=== PATIENT | female | born 1945 | race Caucasian/White ===

== ENCOUNTER 2020-11-16 00:41 | Inpatient (IN) | payer MEDICARE, BC, SELFPAY ==
[2020-11-16] VITALS (18 sets, daily range): BP systolic 120–160; BP diastolic 43–116; PULSE 46–62; RESP 16–24; TEMP 36.4–36.8; O2SAT 91–100; BMI 35.7
--- NOTE | ~2020-11-16 | US_ITS ---
EXAMINATION: US paracentesis abd w/image DATE: 11/16/2020 14:50 INDICATION: Ascites. TECHNIQUE: The procedure and its risks, benefits, and alternatives were discussed with the patient. P otential risks discussed included bleeding and infection. The skin was prepped and draped in sterile fashion. 1% lidocaine was used for local anesthesia. Under ultrasound guidance, a 5 Fr catheter with trochar was advanced into the ascites in the left lower quadrant. Fluid was aspirated. The catheter w as removed, and a dressing was applied. There were no immediate complications. FINDINGS: Ultrasound images demonstrate ascites and the catheter within the fluid. IMPRESSION: 1. Successful ultrasound-guided paracentesis yielding 5000 mL of clear, yellow fluid. Reviewed, dictated and finalized at location A.
--- NOTE | ~2020-11-16 | XR_ITS ---
EXAMINATION: XR hip LT 2V w AP pelvis DATE: 11/16/2020 01:45 INDICATION: Left hip pain. Fall. TECHNIQUE: An anteroposterior view of the pelvis and 2 views of left hip were obtained. COMPARISON: None. FINDINGS: Bone alignment is normal. No fracture. There is severe lumbar spondylosis. There is severe right hip osteoarthritis and mild left hip osteoarthritis. IMPRESSION: 1. Severe right hip osteoarthritis and mild left hip osteoarthritis. Reviewed, dictated and finalized at location A.
--- NOTE | ~2020-11-16 | XR_ITS ---
EXAMINATION: XR chest 2V DATE: 11/16/2020 01:45 INDICATION: Fall. TECHNIQUE: Frontal and lateral views of the chest were obtained. COMPARISON: CT abdomen and pelvis 11/20/2016 FINDINGS: There is no pneumonia, pleural effusion, or pneumothorax. The heart size is normal. There a re multiple old healed right rib fractures. IMPRESSION: 1. No acute cardiopulmonary disease. Reviewed, dictated and finalized at location A.
--- NOTE | ~2020-11-16 | CT_ITS ---
EXAMINATION: CT brain wo con DATE: 11/16/2020 01:33 INDICATION: Head injury. TECHNIQUE: Computed tomography (CT) of the head was performed without intravenous contrast. The mA wa s adjusted according to patient size. Iterative reconstruction technique was employed. The dose-lengt h product was 605.33 mGy-cm. COMPARISON: None FINDINGS: There are scattered areas of low attenuation in the cerebral white matter, which is within normal limits for the patient's age. There is no intracranial hemorrhage, acute infarction, or abnorm al intracranial mass lesion. The ventricles are normal in size. There is mild mucosal thickening in t he paranasal sinuses. There are likely changes of ocular lens replacement surgeries. The mastoid air cells are normal. IMPRESSION: 1. Normal aging brain. Reviewed, dictated and finalized at location A. IMPRESSION: 1. Normal aging brain.
--- NOTE | ~2020-11-16 | CT_ITS ---
EXAMINATION: CT cervical spine wo con DATE: 11/16/2020 01:33 INDICATION: Neck injury. TECHNIQUE: Computed tomography (CT) of the cervical spine was performed without intravenous contrast. Automated exposure control and iterative reconstruction technique were employed. The dose-length pro duct was 433.91 mGy-cm. COMPARISON: None FINDINGS: There is a 1.9 cm nodule in right thyroid lobe. There is 7 degrees levocurvature of cervica l spine. Vertebral body heights are normal. There is moderately decreased disc height at C3-C4, mildl y decreased disc height at C4-C5, moderately decreased disc height at C5-C6, and severely decreased d isc height at C6-C7. The following disc levels are specifically discussed: C2-C3: There is no uncovertebral joint osteoarthritis. There is mild right and moderate left facet clif int osteoarthritis. There is no neural foraminal stenosis. There is no central canal stenosis. C3-C4: There is severe bilateral uncovertebral joint osteoarthritis. There is severe right and modera te left facet joint osteoarthritis. There is mild bilateral neural foraminal stenosis. There is mild central canal stenosis. C4-C5: There is mild bilateral uncovertebral joint osteoarthritis. There is mild right and severe lef t facet joint osteoarthritis. There is no neural foraminal stenosis. There is no central canal stenos is. C5-C6: There is severe bilateral uncovertebral joint osteoarthritis. There is mild bilateral facet clif int osteoarthritis. There is moderate right and mild left neural foraminal stenosis. There is mild ce ntral canal stenosis. C6-C7: There is severe bilateral uncovertebral joint osteoarthritis. There is moderate right and mild left facet joint osteoarthritis. There is mild bilateral neural foraminal stenosis. There is mild ce ntral canal stenosis. C7-T1: There is no uncovertebral joint osteoarthritis. There is severe bilateral facet joint osteoart hritis. There is mild left neural foraminal stenosis. There is no central canal stenosis. IMPRESSION: 1. No fracture. 2. Severe cervical spondylosis. 3. Thyroid nodule. Consider thyroid ultrasound for risk stratification. Reviewed, dictated and finalized at location A.
--- NOTE | ~2020-11-16 | CT_ITS ---
EXAMINATION: CT lumbar spine wo con DATE: 11/16/2020 01:33 INDICATION: Low back injury. TECHNIQUE: Computed tomography (CT) of the lumbar spine was performed without intravenous contrast. A utomated exposure control and iterative reconstruction technique were employed. The dose-length produ ct was 1332.44 mGy-cm. COMPARISON: CT abdomen and pelvis 11/20/2016 FINDINGS: The liver is small with surface nodularity, consistent with cirrhosis. Splenomegaly is note d, consistent with portal venous hypertension. There is a large volume of ascites. There are chronic bilateral L5 pars defects. There is 6 mm anterolisthesis of L5 on S1. There is 8 degrees levocurvatur e of lumbar spine. There is severely decreased disc height at L5-S1. The following disc levels are sp ecifically discussed: L1-L2: The disc does not extend beyond the endplate margin. There is moderate bilateral facet joint o steoarthritis. There is no neural foraminal stenosis. There is no central canal stenosis. L2-L3: The disc does not extend beyond the endplate margin. There is mild bilateral facet joint osteo arthritis. There is no neural foraminal stenosis. There is no central canal stenosis. L3-L4: The disc does not extend beyond the endplate margin. There is mild bilateral facet joint osteo arthritis. There is no neural foraminal stenosis. There is no central canal stenosis. L4-L5: The disc is bulging. There is severe bilateral facet joint osteoarthritis. There is mild bilat eral neural foraminal stenosis. There is mild central canal stenosis. L5-S1: The disc does not extend beyond the endplate margin. There is severe bilateral facet joint ost eoarthritis. There is moderate right and mild left neural foraminal stenosis. There is mild central c anal stenosis. IMPRESSION: 1. Severe lower lumbar spondylosis. 2. Chronic bilateral L5 pars defects with grade 1 anterolisthesis of L5 on S1. 3. Cirrhosis of the liver with portal venous hypertension. 4. Large volume of ascites. Reviewed, dictated and finalized at location A.
--- NOTE | 2020-11-16 01:15 | PC.NURSE ---
0110--Attempted to call [place] for health information on patient as none was sent with EMS, no answer -will try back
--- NOTE | 2020-11-16 01:24 | PC.NURSE ---
Patients son at bedside and is able to give some history- H Dennis ZHAO has also talked with him and patient
[2020-11-16 02:12] LABS: Basophils Absolute Auto 0.1 K/mm3 (0.0-0.1); Basophils Percent Auto 0.8 % (0.2-1.2); Eosinophils Absolute Auto 0.2 K/mm3 (0-0.3); Eosinophils Percent Auto 2.9 % (0-4.4); Hematocrit 28.9 % (37.0-47.0); Hemoglobin 9.6 g/dL (12.0-15.0); Immature Granulocyte Absolute 0.03 K/mm3 (0.00-0.031); Immature Granulocyte Percent A 0.4 % (0-0.5); Immature Platelet Fraction Pct 3.6 % (0.9-11.2); Lymphocytes Absolute Auto 0.56 K/mm3 (0.9-3.2); Lymphocytes Percent Auto 7.5 % (18.3-44.2); Mean Corpuscular HGB Conc 33.2 g/dl (32-36); Mean Corpuscular Hemoglobin 29.2 pg (26-34); Mean Corpuscular Volume 87.8 fl (80-100); Mean Platelet Volume 11.4 fl (7.4-10.4); Monocytes Absolute Auto 0.6 K/mm3 (0.1-0.6); Monocytes Percent Auto 8.5 % (2.6-8.5); Neutrophils Percent Auto 79.9 % (45.5-73.1); Platelet Count Result 72 k/mm3 (150-375); Red Blood Count 3.29 M/mm3 (4.2-5.4); Red Cell Distribution Width 14.4 % (11.5-14.5); White Blood Count 7.5 K/mm3 (4.5-10.0)
[2020-11-16 02:18] LABS: Ammonia < 9 umol/L (9-30)
[2020-11-16 02:19] LABS: Alanine Aminotransferase 19 U/L (4-35); Albumin Level 2.6 g/dL (3.5-5.1); Alkaline Phosphatase 295 U/L (38-126); Anion Gap 4 mmol/L (8-16); Aspartate Amino Transferase 49 U/L (14-36); Bilirubin,Total 1.3 mg/dL (0.2-1.3); Blood Urea Nitrogen 18 mg/dL (7-17); Calcium 8.5 mg/dL (8.4-10.2); Carbon Dioxide 22 mmol/L (22-30); Chloride 111 mmol/L (98-107); Estimated CRCL calculation 48 ml/min; Estimated Glomerular Filt Rate 54; Glucose 132 mg/dL (65-105); Potassium 4.2 mmol/L (3.4-5.0); Sodium 137 mmol/L (137-145)
[2020-11-16] MEDS: MORPHINE SULFATE (*CRX) 2 MG/ML INJ IV PUSH (02:20)
[2020-11-16] MEDS: ONDANSETRON INJ 4 MG/2 ML VIAL IV PUSH (02:20)
[2020-11-16 02:22] LABS: INR 1.3; Prothrombin Time 16.8 Seconds (11.1-14.7)
--- NOTE | 2020-11-16 02:23 | ED.FALL ---
HPI - Fall General Chief Complaint: Fall Stated Complaint: glf, lf eye & Both wrist pain Time Seen by Provider: 11/16/20 01:32 Source: patient Mode of arrival: EMS Limitations: no limitations History of Present Illness HPI Narrative: Patient is a 75-year-old female complaining of head, neck and low back pain after she rolled over and fell out of bed at the assisted living facility. Patient states her pain is a 6 out of 10, dull, aching. Patient denies any loss of consciousness. Patient currently is nonambulatory and getting physical therapy for it according to son due to generalized weakness after being hospitalized for a month in [place] secondary to her liver cirrhosis. Patient also complaining of increasing abdominal distention, supposed to have paracentesis done but since she was just placed at [facility] assisted living son is unable to get an appointment for it to be done. Patient denies any chest pain, shortness of breath, abdominal pain, nausea, vomiting, fever or chills. Related Data Allergies Allergy/AdvReac Type Severity Reaction Status Date / Time Penicillins Allergy Unknown Verified 11/16/20 01:24 PMFSH Comments Past medical history: Liver cirrhosis, ascites, hypertension Family history: Noncontributory Social history: Non-smoker no EtOH use Exam Const: General: cooperative, comfortable, no acute distress, well developed, alert and awake; No confusion Orientation/consciousness: oriented to person, oriented to place, oriented to time, patient oriented x3 and No confusion Limitations: no limitations Other: Frail HENMT: Head: normocephalic, atraumatic and contusion Ears: hearing grossly normal bilaterally, TM normal on the right and TM normal on the left General nose exam: Normal external nose present, Normal nares present, No nasal discharge present, no nasal discharge noted and no epistaxis Mouth: Yes Normal oral and palatal mucosa present, Yes lip normal, Yes tongue normal and Yes oropharynx normal Throat: posterior oropharynx normal, tonsils normal and uvula midline Other: Facial contusion Eyes: General: appearance normal, both eyes and all related structures Pupils: Equal, round and reactive pupils present EOM: EOMs intact bilaterally Neck: Neck: normal visual inspection, full ROM, no lymphadenopathy and no meningeal signs Chest: Chest palpation & inspection: normal inspection of the chest Resp: Effort & Inspection: normal respiratory effort, able to speak in complete sentences, no respiratory distress and not tachypneic Auscultation: clear to auscultation bilaterally, no crackles, no rales, no rhonchi and no wheezes Cardio: Rate: regular rate Rhythm: regular rhythm GI: Inspection: distended GI Palp: No abdominal tenderness, Yes Soft to palpation, No Tenderness to palpation present (GI), No Guarding due to palpation present (GI) and No Rebound tenderness present Auscultation: normal bowel sounds Other: Abdominal distention : General: Yes no CVA tenderness Back/Spine/Pelvis: Other: Pain on palpation bilateral lumbar paraspinal area Skin: General skin exam: normal color, no rashes or lesions noted, elasticity normal and turgor normal Neuro: General: oriented to person, oriented to place, oriented to time, patient oriented x3, tone normal, moves all extremities, Normal light touch and pain sensation, no meningeal signs, no focal motor deficits, CN's II-XI intact bilaterally and No confusion Cranial nerves: Yes Equal, round and reactive pupils present Speech: No Abnormal speech present Sensory Exam: No Sensory deficit (Neuro) Extrem: General: full ROM, capillary refill normal and no pedal edema Psych: Appearance: grossly normal and well kempt Mental Status: mental status grossly normal Speech and movement: Normal speech and movement present Affect: normal affect Attitude: cooperative Thought process: Normal thought process present Thought content: Yes Normal thought content present Insight: [place]
[2020-11-16 02:24] LABS: Partial Thromboplastin Time 33.2 SECONDS (22.3-36.8)
--- NOTE | 2020-11-16 05:45 | ADMGEN ---
This patient, Angeles Veras, was admitted to [facility] Surg Room 333-01. Patient/family oriented to hospital policies and general routines including ID bracelet, bed and alarms, visiting hours, pain management, procedures, bathroom and other care routines, personal items, smoking policy, room service/diet, and visiting hours. Information on how to activate the Rapid Response Team has been discussed. Patient/Family are encouraged to report perceived risks to care and to ask questions if they do not understand what they are told or what they should do.
[2020-11-16 09:14] LABS: Glucose Point of Care 97 (65-105)
--- NOTE | 2020-11-16 09:19 | PM.IMHP ---
H&P: HPI History of Present Illness Date/Time: 11/16/20 09:19 Chief Complaint: Fall Narrative: Date of admission: 11/16/20 Date of service: 11/16/20 Angeles Veras is a 75-year-old female with a history liver cirrhosis, chronic anemia, and insulin-dependent diabetes mellitus who presented to the emergency department on 11/16/2020 from her assisted living facility after a fall. She is a poor historian and is only accurately oriented to self. It is reported from alf staff that patient fell out of bed and hit her head. Unsure if loss of consciousness occurred. Unclear how long she was down for. ED documentation suggests that she was complaining of pain in her head, neck, and back, though she denies any complaints of pain to me at this time. She was recently hospitalized for 3 weeks in August-September, also for a fall. At that time she was diagnosed with liver cirrhosis and has plans for outpatient follow-up with coal mill operator at [facility]. She has undergone outpatient paracentesis x2 since that hospitalization. She denies complaints of abdominal bloating or pain to me, although her abdomen is significantly distended. Her son, Asif, arrived during my examination and he tells me that he feels she is more confused. He feels that this occurs when her ascites worsens. He also notes that she has been very weak and is nonambulatory since her extended hospitalization. He feels that she needs to be somewhere where she can get full-time care. Upon presentation to the emergency department, her BP was slightly elevated with additional vital signs stable, H&H slightly decreased, platelets low at 72, electrolytes are stable, albumin is low at 2.6, AST and ALP slightly elevated, ammonia is within normal limits, is negative for acute findings no evidence of fracture or acute injury on hip/pelvis x-ray, cervical spine CT, or lumbar CT note cirrhosis of the liver with portal venous hypertension and large volume of ascites. She is being admitted for observation to the hospitalist service. Supervising physician for this history and physical is Dr. Marcus Mathias. Review of Systems Review of Systems: Narrative: All systems reviewed with pertinent positives and negatives as per HPI. Additionally, patient states that her last bowel movement was yesterday. She denies diarrhea. She denies urinary symptoms. No flank pain or back pain. She denies confusion. No headaches. Denies dysphagia. No visual changes. No trouble with hearing. She denies shortness of breath or cough. She denies lower extremity edema. She denies chest pain. No palpitations. Denies dizziness or lightheadedness. She does feel very weak and fatigued. She complains of feeling extremely cold. She denies fever or chills. [facility] Past Medical History Medical History (Updated 11/16/20 @ 10:34 by Xin Will PA-C) Chronic anemia Cirrhosis of liver Hypothyroid Insulin dependent diabetes mellitus Surgical History Surgical History (Updated 11/16/20 @ 10:35 by Xin Will PA-C) No history of previous surgery Family History Family History (Updated 11/16/20 @ 10:35 by Xin Will PA-C) Father Lung cancer Heart disease Mother No problems noted. Social History Social History (Updated 11/16/20 @ 10:37 by Xin Will PA-C) Social History: Ms. Veras currently resides in [facility]. She has been there just a couple of days after her previous assisted living facility, [facility], closed. She has 2 adult sons and designates her son, Emanuel, as her surrogate decision maker. She would like to be a DNR. Her PCP is Dr. Dmitriy Jama. Smoking status: Never smoker Alcohol intake: never Substance use: never Living arrangements: assisted living Gender identity (if verbalized by the patient): Female Spiritual care concerns: No Meds Home Medications and Allergies Home Medications Medication Instructions Сергей
[2020-11-16] MEDS: FERROUS SULFATE 324 MG TABLET PO ×2 (09:47→18:10)
[2020-11-16] MEDS: FUROSEMIDE 20 MG TABLET PO (09:47)
--- NOTE | 2020-11-16 10:03 | PCOTNOTE ---
Attempted OT evaluation, per RN patient is more confused at this time and requested to hold for morning and attempt therapy at later time, will follow and attempt in the afternoon.
--- NOTE | 2020-11-16 10:06 | PCPTNOTE ---
Attempted PT evaluation, per RN patient is more confused at this time and requested to hold for morning and attempt therapy at later time, will follow and attempt in the afternoon. Carley Santana, KARYNT
[2020-11-16 11:04] LABS: Creatine Kinase 51 U/L (30-135)
[2020-11-16 11:07] LABS: Hemoglobin A1C 4.9 % (<5.7)
[2020-11-16 12:00] LABS: Thyroid Stimulating Hormone Reflex 0.129 uIU/mL (0.465-4.68)
[2020-11-16 12:11] LABS: Glucose Point of Care 85 (65-105)
--- NOTE | 2020-11-16 13:19 | PCOTNOTE ---
OT evaluation attempted, Patient out for procedure this afternoon. Will attempt OT evaluation at later time.
[2020-11-16] MEDS: LACTULOSE 20 GM/30 ML UDC PO ×2 (13:44→17:52)
--- NOTE | 2020-11-16 14:19 | PCPTNOTE ---
Attempted PT eval. Pt refused, states she's too tired after procedure to get up. Will try again tomorrow.
[2020-11-16 17:04] LABS: Glucose Point of Care 106 (65-105)
[2020-11-16 18:21] LABS: Add Urine Microscopic? YES; Appearance Urine Clear (Clear); Bacteria Urine 4+ /hpf; Bilirubin Urine Negative (Negative); Blood Urine Negative (Negative); Color Urine Yellow (Yellow); Glucose Urine UA Negative (Negative); Hyaline Casts Urine 20-29 /lpf; Ketones Urine Negative (Negative); Leukocyte Esterase Ur Negative LEU/UL (Negative); Mucus Urine Rare /lpf; Nitrate Urine Negative (Negative); Protein Urine Negative (Negative); RBC Urine 0-2 /hpf (0-2); Specific Grav Ur 1.015 (1.001-1.035); Squamous Epithelial Cell Urine Rare /hpf (Few); WBC Urine 0-3 /hpf
[2020-11-16] MEDS: PROPRANOLOL HCL 10 MG TABLET PO (20:44)
[2020-11-16] MEDS: MELATONIN 5 MG TABLET PO (20:47)
[2020-11-16] MEDS: TOLNAFTATE 1% POWDER 45 GM BTL 1 APPLIC TOPICAL (20:50)
[2020-11-16 22:38] LABS: Glucose Point of Care 135 (65-105)
[2020-11-17] MEDS: LORazepam (*CRX) 0.5 MG TABLET PO (02:04)
[2020-11-17 06:00] VITALS: BP 140/50; PULSE 60; RESP 18; TEMP 36.4; O2SAT 98
[2020-11-17] MEDS: LEVOTHYROXINE SODIUM 150 MCG TABLET PO (06:12)
[2020-11-17 06:17] LABS: Hematocrit 26.4 % (37.0-47.0); Hemoglobin 8.6 g/dL (12.0-15.0); Mean Corpuscular HGB Conc 32.6 g/dl (32-36); Mean Corpuscular Hemoglobin 28.6 pg (26-34); Mean Corpuscular Volume 87.7 fl (80-100); Mean Platelet Volume 12.4 fl (7.4-10.4); Platelet Count Result 56 k/mm3 (150-375); Red Blood Count 3.01 M/mm3 (4.2-5.4); Red Cell Distribution Width 14.4 % (11.5-14.5); White Blood Count 4.4 K/mm3 (4.5-10.0)
[2020-11-17 06:27] LABS: INR 1.4; Prothrombin Time 17.5 Seconds (11.1-14.7)
[2020-11-17 06:28] LABS: Alanine Aminotransferase 15 U/L (4-35); Albumin Level 2.2 g/dL (3.5-5.1); Alkaline Phosphatase 211 U/L (38-126); Anion Gap 1 mmol/L (8-16); Aspartate Amino Transferase 30 U/L (14-36); Blood Urea Nitrogen 15 mg/dL (7-17); Calcium 8.8 mg/dL (8.4-10.2); Carbon Dioxide 25 mmol/L (22-30); Chloride 113 mmol/L (98-107); Estimated CRCL calculation 45 ml/min; Estimated Glomerular Filt Rate 49; Glucose 88 mg/dL (65-105); Potassium 4.2 mmol/L (3.4-5.0); Sodium 139 mmol/L (137-145)
[2020-11-17 07:57] LABS: Glucose Point of Care 81 (65-105)
[2020-11-17 09:18] VITALS: PULSE 68
[2020-11-17] MEDS: PROPRANOLOL HCL 10 MG TABLET PO ×2 (09:18→20:34)
[2020-11-17] MEDS: FUROSEMIDE 20 MG TABLET PO (09:19)
[2020-11-17] MEDS: LACTULOSE 20 GM/30 ML UDC PO ×3 (09:20→17:20)
[2020-11-17] MEDS: FERROUS SULFATE 324 MG TABLET PO ×2 (09:20→17:20)
[2020-11-17] MEDS: TOLNAFTATE 1% POWDER 45 GM BTL 1 APPLIC TOPICAL (09:24)
--- NOTE | 2020-11-17 09:55 | PM.IMPN ---
Progress Note: A&P Assessment and Plan (1) Fall: Code(s): W19.XXXA - Unspecified fall, initial encounter Status: Acute Assessment and Plan: Fell out of bed at assisted living facility. Unwitnessed fall, unclear if loss of consciousness or duration of time down. Head CT negative for acute findings. CK within normal limits. Hip/pelvis x-ray, cervical CT, and lumbar CT negative for fracture or other acute injuries. Fall precautions in place Appreciate PT/OT eval Care coordination following. Plan to return to assisted living facility based on PT/OT eval is. Hopeful discharge today or tomorrow pending negative COVID test. (2) Cirrhosis of liver: Code(s): K74.60 - Unspecified cirrhosis of liver Status: Acute Assessment and Plan: Recent diagnosis with outpatient follow up scheduled to establish with title investigator. Unclear etiology. No history of alcohol use. No history of hepatitis. CT demonstrated cirrhosis with portal venous hypertension. Ammonia is within normal limits. Platelets and albumin levels are low. LFTs mildly elevated. Records reviewed from prior hospitalization at [facility]. No evidence of hepatic encephalopathy at this time. Continue propranolol. Evidence of esophageal varices noted on EGD completed at outside facility Continue lactulose and monitor stool patterns She has an appointment to establish care with a title investigator on 11/21/2020 (3) Ascites of liver: Code(s): R18.8 - Other ascites Status: Acute Assessment and Plan: Large volume ascites noted on exam and imaging. She underwent therapeutic paracentesis on 11/16/2020 which yielded 5 L of clear yellow fluid Continue furosemide 20 mg daily Low-sodium diet Monitor clinically (4) Chronic anemia: Code(s): D64.9 - Anemia, unspecified Status: Acute Assessment and Plan: Hemoglobin and hematocrit are remaining stable. Vital signs are stable with no evidence of blood loss. Continue home ferrous sulfate Monitor H&H closely and transfuse as needed (5) Insulin dependent diabetes mellitus: Status: Acute Assessment and Plan: A1c is 4.9. Blood sugars are well controlled. Given A1c findings and blood sugar control, will stop with Accu-Cheks. No further therapy required (6) Thyroid nodule: Code(s): E04.1 - Nontoxic single thyroid nodule Status: Acute Assessment and Plan: 1.9 cm nodule in right thyroid lobe incidentally noted on cervical spine CT. She has a history of hypothyroidism for many years and has been on levothyroxine. Discussed with patient and family who wish to follow-up with PCP as an outpatient to obtain thyroid ultrasound (7) Urinary retention: Code(s): R33.9 - Retention of urine, unspecified Status: Acute Assessment and Plan: She was unable to urinate yesterday and Banuelos catheter was initiated. She is not able to indicate if she has ever had any issues like this before. Will plan for voiding trial this afternoon. If unsuccessful, will initiate Flomax and Urology follow-up. Subjective Date/time seen: 11/17/20 09:55 Interval history: Date of service: 11/17/2020 Angeles Veras is a 75-year-old female with a history liver cirrhosis, chronic anemia, and insulin-dependent diabetes mellitus who is seen in follow-up for a fall from bed as well as cirrhosis and ascites s/p paracentesis yielding 5 L on 11/16/2020. She is feeling much better today. She is far more alert and is able to participate in conversation with me. Her abdomen feels much less bloated and she reports it is soft. She denies any abdominal pain at this time. She has been having regular bowel movements. She still endorses mild swelling in her legs. She was able to tolerate diet. She denies nausea or vomiting. She denies chest pain, palpitations, shortness breath, or cough. She does still feel a bit weak but feels improved.
[2020-11-17 12:27] LABS: Glucose Point of Care 140 (65-105)
[2020-11-17 14:00] VITALS: BP 132/55; PULSE 58; RESP 16; TEMP 36.7; O2SAT 97
[2020-11-17 17:44] LABS: Glucose Point of Care 138 (65-105)
[2020-11-17 19:15] LABS: SARS-CoV-2 RNA PCR Negative
[2020-11-17] MEDS: MELATONIN 5 MG TABLET PO (20:34)
[2020-11-17 22:00] VITALS: BP 137/50; PULSE 56; RESP 16; TEMP 37.2; O2SAT 100
[2020-11-18 00:08] LABS: Glucose Point of Care 158 (65-105)
[2020-11-18] MEDS: TOLNAFTATE 1% POWDER 45 GM BTL 1 APPLIC TOPICAL ×3 (04:00→22:44)
[2020-11-18 06:00] VITALS: BP 139/44; PULSE 61; RESP 16; TEMP 36.6; O2SAT 98
[2020-11-18] MEDS: LEVOTHYROXINE SODIUM 150 MCG TABLET PO (06:55)
[2020-11-18 08:00] VITALS: PULSE 60; RESP 16; O2SAT 98
[2020-11-18] MEDS: FUROSEMIDE 20 MG TABLET PO (09:09)
[2020-11-18] MEDS: FERROUS SULFATE 324 MG TABLET PO ×2 (09:09→17:23)
[2020-11-18 09:10] VITALS: PULSE 60
[2020-11-18] MEDS: PROPRANOLOL HCL 10 MG TABLET PO ×2 (09:10→22:01)
[2020-11-18] MEDS: LACTULOSE 20 GM/30 ML UDC PO ×2 (09:11→17:23)
[2020-11-18 14:00] VITALS: BP 122/43; PULSE 61; RESP 20; TEMP 36.2; O2SAT 99
--- NOTE | 2020-11-18 14:05 | P.PNIM_ITS ---
Progress Note: A&P Assessment and Plan (1) Fall: Code(s): W19.XXXA - Unspecified fall, initial encounter Status: Acute Assessment and Plan: Fell out of bed at assisted living facility. Unwitnessed fall, unclear if loss of consciousness or duration of time down. Head CT negative for acute findings. CK within normal limits. Hip/pelvis x-ray, cervical CT, and lumbar CT negative for fracture or other acute injuries. * Fall precautions in place * Appreciate PT/OT eval * Care coordination following. Patient and family would like to proceed with usp placement given increased need for assistance (2) Cirrhosis of liver: Code(s): K74.60 - Unspecified cirrhosis of liver Status: Acute Assessment and Plan: Recent diagnosis with outpatient follow up scheduled to establish with enterprise architect manager. Unclear etiology. No history of alcohol use. No history of hepatitis. CT demonstrated cirrhosis with portal venous hypertension. Ammonia is within normal limits. Platelets and albumin levels are low. LFTs mildly elevated. Records reviewed from prior hospitalization at [facility]. No evidence of hepatic encephalopathy. * Continue propranolol. Evidence of esophageal varices noted on EGD completed at outside facility * Continue lactulose and monitor stool patterns * She has an appointment to establish care with a enterprise architect manager on 11/21/2020 (3) Ascites of liver: Code(s): R18.8 - Other ascites Status: Acute Assessment and Plan: Large volume ascites noted on exam and imaging. She underwent therapeutic paracentesis on 11/16/2020 which yielded 5 L of clear yellow fluid * Continue furosemide 20 mg daily * Low-sodium diet * Monitor clinically (4) Chronic anemia: Code(s): D64.9 - Anemia, unspecified Status: Acute Assessment and Plan: Hemoglobin and hematocrit are remaining stable. Vital signs are stable with no evidence of blood loss. * Continue home ferrous sulfate * Monitor H&H closely and transfuse as needed (5) Insulin dependent diabetes mellitus: Status: Acute Assessment and Plan: A1c is 4.9. Blood sugars are well controlled. * Given A1c findings and blood sugar control, will stop with Accu-Cheks. No further therapy required (6) Thyroid nodule: Code(s): E04.1 - Nontoxic single thyroid nodule Status: Acute Assessment and Plan: 1.9 cm nodule in right thyroid lobe incidentally noted on cervical spine CT. She has a history of hypothyroidism for many years and has been on levothyroxine. * Discussed with patient and family who wish to follow-up with PCP as an outpati ent to obtain thyroid ultrasound (7) Urinary retention: Code(s): R33.9 - Retention of urine, unspecified Status: Acute Assessment and Plan: Unable to urinate on 11/16 overnight, therefore Banuelos catheter was initiated. Voiding trial on 11/17/20 unsuccessful with evidence of urinary retention on bladder scan. * Banuelos catheter initiated and will be continued at discharge * Start Flomax * Outpatient urology follow up will be needed in 1 week for further evaluation. Subjective Date/time seen: 11/18/20 14:05 Interval history: Date of service: 11/18/2020 Angeles Veras is a 75-year-old female with a history liver cirrhosis, chronic anemia, and insulin-dependent diabetes mellitus who is seen in follow-up for a fall from bed as well as cirrhosis and ascites s/p paracentesis yielding 5 L on 11/16/2020. She is feeling okay today. Sh
--- NOTE | 2020-11-18 14:05 | PM.IMPN ---
Progress Note: A&P Assessment and Plan (1) Fall: Code(s): W19.XXXA - Unspecified fall, initial encounter Status: Acute Assessment and Plan: Fell out of bed at assisted living facility. Unwitnessed fall, unclear if loss of consciousness or duration of time down. Head CT negative for acute findings. CK within normal limits. Hip/pelvis x-ray, cervical CT, and lumbar CT negative for fracture or other acute injuries. Fall precautions in place Appreciate PT/OT eval Care coordination following. Patient and family would like to proceed with jail placement given increased need for assistance (2) Cirrhosis of liver: Code(s): K74.60 - Unspecified cirrhosis of liver Status: Acute Assessment and Plan: Recent diagnosis with outpatient follow up scheduled to establish with network announcer. Unclear etiology. No history of alcohol use. No history of hepatitis. CT demonstrated cirrhosis with portal venous hypertension. Ammonia is within normal limits. Platelets and albumin levels are low. LFTs mildly elevated. Records reviewed from prior hospitalization at [facility]. No evidence of hepatic encephalopathy. Continue propranolol. Evidence of esophageal varices noted on EGD completed at outside facility Continue lactulose and monitor stool patterns She has an appointment to establish care with a network announcer on 11/21/2020 (3) Ascites of liver: Code(s): R18.8 - Other ascites Status: Acute Assessment and Plan: Large volume ascites noted on exam and imaging. She underwent therapeutic paracentesis on 11/16/2020 which yielded 5 L of clear yellow fluid Continue furosemide 20 mg daily Low-sodium diet Monitor clinically (4) Chronic anemia: Code(s): D64.9 - Anemia, unspecified Status: Acute Assessment and Plan: Hemoglobin and hematocrit are remaining stable. Vital signs are stable with no evidence of blood loss. Continue home ferrous sulfate Monitor H&H closely and transfuse as needed (5) Insulin dependent diabetes mellitus: Status: Acute Assessment and Plan: A1c is 4.9. Blood sugars are well controlled. Given A1c findings and blood sugar control, will stop with Accu-Cheks. No further therapy required (6) Thyroid nodule: Code(s): E04.1 - Nontoxic single thyroid nodule Status: Acute Assessment and Plan: 1.9 cm nodule in right thyroid lobe incidentally noted on cervical spine CT. She has a history of hypothyroidism for many years and has been on levothyroxine. Discussed with patient and family who wish to follow-up with PCP as an outpatient to obtain thyroid ultrasound (7) Urinary retention: Code(s): R33.9 - Retention of urine, unspecified Status: Acute Assessment and Plan: Unable to urinate on 11/16 overnight, therefore Banuelos catheter was initiated. Voiding trial on 11/17/20 unsuccessful with evidence of urinary retention on bladder scan. Banuelos catheter initiated and will be continued at discharge Start Flomax Outpatient urology follow up will be needed in 1 week for further evaluation. Subjective Date/time seen: 11/18/20 14:05 Interval history: Date of service: 11/18/2020 Angeles Veras is a 75-year-old female with a history liver cirrhosis, chronic anemia, and insulin-dependent diabetes mellitus who is seen in follow-up for a fall from bed as well as cirrhosis and ascites s/p paracentesis yielding 5 L on 11/16/2020. She is feeling okay today. She feels that her abdomen is again bloated and firm. She ate a good breakfast this morning. She denies any nausea, vomiting, diarrhea, fever, or chills. No shortness of breath, cough, chest pain, or palpitations. She still has not been able to ambulate. She does that her lower extremities feel little bit tight from edema. She complains of feeling very cold. She has not been able to urinate and states that she just has no urge or
[2020-11-18 21:55] VITALS: BP 132/62; PULSE 63; RESP 20; TEMP 37.4; O2SAT 99
[2020-11-18] MEDS: MELATONIN 5 MG TABLET PO (22:00)
[2020-11-18 22:01] VITALS: PULSE 72
[2020-11-18] MEDS: SODIUM CHLORIDE NASAL GEL 14.1 GM 1 APPLIC NASAL (22:44)
[2020-11-19 05:56] LABS: Hematocrit 27.1 % (37.0-47.0); Hemoglobin 8.8 g/dL (12.0-15.0); Mean Corpuscular HGB Conc 32.5 g/dl (32-36); Mean Corpuscular Hemoglobin 28.9 pg (26-34); Mean Corpuscular Volume 88.9 fl (80-100); Mean Platelet Volume 12.8 fl (7.4-10.4); Platelet Count Result 67 k/mm3 (150-375); Red Blood Count 3.05 M/mm3 (4.2-5.4); Red Cell Distribution Width 14.2 % (11.5-14.5); White Blood Count 5.6 K/mm3 (4.5-10.0)
[2020-11-19 06:00] VITALS: BP 127/39; PULSE 63; RESP 20; TEMP 37.2; O2SAT 97
[2020-11-19] MEDS: LEVOTHYROXINE SODIUM 150 MCG TABLET PO (06:04)
[2020-11-19 06:10] LABS: Anion Gap -2 mmol/L (8-16); Blood Urea Nitrogen 17 mg/dL (7-17); Calcium 8.5 mg/dL (8.4-10.2); Carbon Dioxide 26 mmol/L (22-30); Chloride 111 mmol/L (98-107); Estimated CRCL calculation 45 ml/min; Estimated Glomerular Filt Rate 49; Glucose 90 mg/dL (65-105); Potassium 4.7 mmol/L (3.4-5.0); Sodium 135 mmol/L (137-145)
[2020-11-19 08:12] VITALS: PULSE 63
[2020-11-19] MEDS: TAMSULOSIN HCL 0.4 MG CAPSULE PO (08:12)
[2020-11-19] MEDS: FUROSEMIDE 20 MG TABLET PO (08:12)
[2020-11-19] MEDS: PROPRANOLOL HCL 10 MG TABLET PO (08:12)
[2020-11-19] MEDS: FERROUS SULFATE 324 MG TABLET PO (08:12)
[2020-11-19] MEDS: LACTULOSE 20 GM/30 ML UDC PO ×2 (08:13→13:13)
[2020-11-19] MEDS: TOLNAFTATE 1% POWDER 45 GM BTL 1 APPLIC TOPICAL (08:13)
--- NOTE | 2020-11-19 11:30 | PM.DS ---
DS: Admitting Diagnosis Admitting Diagnosis Admitting Diagnosis: Fall DS: Discharge Diagnosis Discharge Diagnosis (1) Fall: Code(s): W19.XXXA - Unspecified fall, initial encounter Status: Acute Assessment and Plan: Fell out of bed at assisted living facility. Unwitnessed fall, unclear if loss of consciousness or duration of time down. Head CT negative for acute findings. CK within normal limits. Hip/pelvis x-ray, cervical CT, and lumbar CT negative for fracture or other acute injuries. She participated in PT/OT. She was concerned that she would not be able to get the care she needed at an assisted living facility and wished to pursue a usp. This was arranged at [facility]. (2) Cirrhosis of liver: Code(s): K74.60 - Unspecified cirrhosis of liver Status: Acute Assessment and Plan: Recent diagnosis with outpatient follow up scheduled to establish with traffic line painter on 11/21/20. Unclear etiology. No history of alcohol use. No history of hepatitis. CT demonstrated cirrhosis with portal venous hypertension. Ammonia is within normal limits. Platelets and albumin levels are low. LFTs mildly elevated. Records reviewed from prior hospitalization at [facility] with evidence of esophageal varices noted on EGD at outside facility. No evidence of hepatic encephalopathy. Continue propranolol and lactulose. (3) Ascites of liver: Code(s): R18.8 - Other ascites Status: Acute Assessment and Plan: Large volume ascites noted on exam and imaging. She underwent therapeutic paracentesis on 11/16/2020 which yielded 5 L of clear yellow fluid. Continue furosemide 20 mg daily and low sodium diet. Outpatient hepatology follow up as above. (4) Chronic anemia: Code(s): D64.9 - Anemia, unspecified Status: Acute Assessment and Plan: Hemoglobin and hematocrit remained stable. Vital signs were stable with no evidence of blood loss. Continue home ferrous sulfate (5) Insulin dependent diabetes mellitus: Status: Acute Assessment and Plan: A1c is 4.9. Blood sugars were well controlled. (6) Thyroid nodule: Code(s): E04.1 - Nontoxic single thyroid nodule Status: Acute Assessment and Plan: 1.9 cm nodule in right thyroid lobe incidentally noted on cervical spine CT. She has a history of hypothyroidism for many years and has been on levothyroxine. Discussed with patient and family who wish to follow-up with PCP as an outpatient to obtain thyroid ultrasound (7) Urinary retention: Code(s): R33.9 - Retention of urine, unspecified Status: Acute Assessment and Plan: Unable to urinate on 11/16 overnight, therefore Banuelos catheter was initiated. Voiding trial on 11/17/20 unsuccessful with evidence of urinary retention on bladder scan, therefore Banuelos catheter restarted. Started on tamsulosin. I scheduled an outpatient urology follow-up on 11/28/2020 DS: Summary Hospital Course Reason for hospitalization: Fall Hospital Course: Date of admission: 11/16/20 Date of discharge: 11/19/20 Angeles Veras is a 75-year-old female with a history liver cirrhosis, chronic anemia, and insulin-dependent diabetes mellitus who presented to the emergency department on 11/16/2020 from her assisted living facility after a fall from her bed. She was feeling very weak. Upon presentation to the emergency department, her BP was slightly elevated with additional vital signs stable, H&H slightly decreased, platelets low at 72, electrolytes are stable, albumin is low at 2.6, AST and ALP slightly elevated, ammonia is within normal limits, head CT negative for acute findings and no evidence of fracture or acute injury on hip/pelvis x-ray, cervical spine CT, or lumbar CT, though did note cirrhosis of the liver with portal venous hypertension and large volume of ascites. She was admitted to the hospitalist service for further evaluation and managem
[2020-11-19 14:00] VITALS: BP 120/52; PULSE 59; RESP 20; TEMP 36.4; O2SAT 98
== END 2020-11-19 16:22 | DRG 433 ==
LOC: ANHED 03:21 → ANH3MEDSUR 04:21
PROVIDERS: Emergency Medicine Emergency Medical Services; Physician Assistant; Admitting Provider Internal Medicine; Emergency Provider Emergency Medicine; PCP Internal Medicine; Visit Provider Family Medicine
DX: K74.60 Unspecified cirrhosis of liver (principal); R18.8 Other ascites; K76.6 Portal hypertension; Z20.822 Contact with and (suspected) exposure to COVID-19; S09.90XA Unspecified injury of head, initial encounter; S16.1XXA Strain of muscle, fascia and tendon at neck level, initial encounter; S39.012A Strain of muscle, fascia and tendon of lower back, initial encounter; W06.XXXA Fall from bed, initial encounter; R33.9 Retention of urine, unspecified; E11.9 Type 2 diabetes mellitus without complications; E04.1 Nontoxic single thyroid nodule; E03.9 Hypothyroidism, unspecified; D64.9 Anemia, unspecified; Z79.4 Long term (current) use of insulin; Z79.899 Other long term (current) drug therapy; Z88.0 Allergy status to penicillin
CPT/HCPCS: 36415; 49083; 70450; 71046; 72125; 72131; 73502; 80048; 80053; 81001; 82140; 82550; 82948; 83036; 84439; 84443; 85025; 85027; 85055; 85610; 85730; 96374; 96375; 97110; 97162; 97165; 97530; 97535; 99285; A9270; C9803; G0378; J2270; J2405; U0003; U0005

== ENCOUNTER 2020-12-11 12:49 | Emergency (ER) | payer MEDICARE, BC, SELFPAY ==
[2020-12-11] VITALS (7 sets, daily range): BP systolic 106–152; BP diastolic 45–66; PULSE 66–78; RESP 18–23; TEMP 37.1–37.2; O2SAT 93–99
--- NOTE | ~2020-12-11 | US_ITS ---
EXAMINATION: US paracentesis abd w/image DATE: 12/11/2020 15:08 INDICATION: Ascites. TECHNIQUE: The procedure and its risks and benefits were discussed with the patient. Potential risks discussed included bleeding and infection. The skin was prepped and draped in sterile fashion. 1% lid ocaine was used for local anesthesia. Under ultrasound guidance, a 5 Fr catheter with trochar was adv anced into the ascites in the right lower quadrant. Fluid was aspirated into vacuum bottles. The cath eter was removed, and a dressing was applied. There were no immediate complications. FINDINGS: Ultrasound images demonstrate ascites and the catheter within the fluid. IMPRESSION: 1. Successful ultrasound-guided paracentesis yielding 5000 mL of clear yellow fluid. Reviewed, dictated and finalized at location A.
--- NOTE | ~2020-12-11 | CT_ITS ---
EXAMINATION: CT abdomen pelvis w con DATE: 12/11/2020 14:29 INDICATION: Abdominal distention and pain. TECHNIQUE: Computed tomography (CT) of the abdomen and pelvis was performed with 100 mL Omnipaque 350 intravenous contrast. Automated exposure control and iterative reconstruction technique were employe d. The dose-length product was 1272.04 mGy-cm. COMPARISON: CT abdomen and pelvis 11/20/2016 FINDINGS: The visualized portions of the lung bases demonstrate mild atelectasis. No pleural effusion . The heart size is normal. There are coronary artery calcifications. There are calcifications of aor tic valve. No pericardial effusion. There is a small sliding hiatal hernia. The liver is small and he terogeneous with nodular surface contour, consistent with cirrhosis. There is moderate splenomegaly m easuring 16.0 cm. The gallbladder is normal. There is a 2.0 cm cystic lesion in the tail of the pancr eas that measured 1.7 cm on 11/20/16. The adrenal glands and left kidney are normal. There are cysts in right kidney measuring up to 7 mm. There are no dilated loops of bowel. The appendix is normal. Ther e is a splenorenal portacaval shunt. There is a large volume of ascites. Body wall edema is noted. Th ere is mild gastrohepatic and periportal lymphadenopathy, likely reactive. There are old healed bilat eral rib fractures. There are chronic bilateral L5 pars defects with 7 mm anterolisthesis of L5 on S1 . There is severe lower lumbar spondylosis. IMPRESSION: 1. Cirrhosis of the liver with portal venous hypertension. 2. Large volume of ascites. 3. Mild gastrohepatic and periportal lymphadenopathy, likely reactive. 4. 2.0 cm cystic lesion in the tail of the pancreas, which measured 1.7 cm on 11/20/16. The differentia l diagnosis includes pseudocyst, intraductal papillary mucinous neoplasm (IPMN), mucinous cystic neop lasm (MCN), serous cystadenoma, and neuroendocrine tumor. Given the patient's comorbidities, follow-u p imaging is likely not needed. Reviewed, dictated and finalized at location B. IMPRESSION: 1. Cirrhosis of the liver with portal venous hypertension. 2. Large volume of ascites. 3. Mild gastrohepatic and periportal lymphadenopathy, likely reactive. 4. 2.0 cm cystic lesion in the tail of the pancreas, which measured 1.7 cm on . The differential diagnosis includes pseudocyst, intraductal papillary mu cinous neoplasm (IPMN), mucinous cystic neoplasm (MCN), serous cystadenoma, and neuroendocrine tumor. Given the patient's comorbidities, follow-up imaging is likely not needed.
[2020-12-11 13:54] LABS: Basophils Percent Auto 0.7 % (0.2-1.2); Eosinophils Absolute Auto 0.1 K/mm3 (0-0.3); Eosinophils Percent Auto 1.6 % (0-4.4); Hematocrit 33.2 % (37.0-47.0); Hemoglobin 10.6 g/dL (12.0-15.0); Immature Granulocyte Absolute 0.02 K/mm3 (0.00-0.031); Immature Granulocyte Percent A 0.3 % (0-0.5); Lymphocytes Absolute Auto 0.51 K/mm3 (0.9-3.2); Lymphocytes Percent Auto 8.3 % (18.3-44.2); Mean Corpuscular HGB Conc 31.9 g/dl (32-36); Mean Corpuscular Hemoglobin 28.6 pg (26-34); Mean Corpuscular Volume 89.7 fl (80-100); Mean Platelet Volume 12.3 fl (7.4-10.4); Monocytes Absolute Auto 0.4 K/mm3 (0.1-0.6); Monocytes Percent Auto 6.4 % (2.6-8.5); Neutrophils Absolute Auto 5.1 K/mm3 (1.3-6.7); Neutrophils Percent Auto 82.7 % (45.5-73.1); Platelet Count Result 67 k/mm3 (150-375); Red Cell Distribution Width 15.4 % (11.5-14.5); White Blood Count 6.1 K/mm3 (4.5-10.0)
--- NOTE | 2020-12-11 14:05 | ED.GENADULT ---
HPI - General Adult General Chief complaint: Abdominal Pain <REE Salmeron Last Filed: 12/11/20 17:28> Stated complaint: abd pain <REE Salmeron Last Filed: 12/11/20 17:28> Time Seen by Provider: 12/11/20 13:09 <REE Salmeron Last Filed: 12/11/20 17:28> Source: patient, family, RN notes reviewed and old records reviewed <REE Salmeron Last Filed: 12/11/20 17:28> Mode of arrival: EMS <REE Salmeron Last Filed: 12/11/20 17:28> Limitations: no limitations <REE Salmeron Last Filed: 12/11/20 17:28> History of Present Illness HPI narrative: Patient is 75-year-old female who [facility] for evaluation of abdominal pain noting that she has history of cirrhosis and ascites requiring therapeutic paracentesis was here recently had 5000 mL of fluid drained today presents noting distention and discomfort of the abdomen patient is currently in a prison and is scheduled to see her specialist next week. Patient denies any injury trauma or other illness or complaints <REE Salmeron Last Filed: 12/11/20 17:28> Related Data Home medications: Home Medications Medication Instructions Recorded Confirmed escitalopram oxalate 5 mg PO DAILY 11/16/20 11/16/20 ferrous sulfate 325 mg PO BIDWM 11/16/20 11/16/20 fluticasone propionate 1 spray INTRANASAL DAILY 11/16/20 11/16/20 furosemide 20 mg PO DAILY 11/16/20 11/16/20 insulin lispro [Humalog U-100 1 sliding scale dose SUBCUT ACHS 11/16/20 11/16/20 Insulin] lactulose 20 g PO TID 11/16/20 11/16/20 levothyroxine 150 mcg PO DAILY 11/16/20 11/16/20 melatonin 10 mg PO HS 11/16/20 11/16/20 nystatin 1 applic TOPICAL BID 11/16/20 11/16/20 propranolol 10 mg PO Q12H 11/16/20 11/16/20 aspirin 81 mg PO DAILY 12/11/20 <REE Salmeron Last Filed: 12/11/20 17:28> Allergies/adverse reactions: Allergies Allergy/AdvReac Type Severity Reaction Status Date / Time Penicillins Allergy Unknown Verified 11/16/20 01:24 sertraline [From Zoloft] Allergy Unknown Verified 12/11/20 12:54 <Kevin Collins PA-C - Last Filed: 12/11/20 17:28> Review of Systems Review of Systems: All systems reviewed & are unremarkable except as noted in HPI and below <Kevin Collins PA-C - Last Filed: 12/11/20 17:28> PMFSH Past Medical History Medical History: Medical History Anxiety Chronic anemia Cirrhosis of liver Hypothyroid Insulin dependent diabetes mellitus <Kevin Collins PA-C - Last Filed: 12/11/20 17:28> Surgical History Surgical History: Surgical History No history of previous surgery <Kevin Collins PA-C - Last Filed: 12/11/20 17:28> Family History Family History: Family History (Updated 11/16/20 @ 10:35 by Xin Will PA-C) Father Lung cancer Heart disease Mother No problems noted. <Kevin Collins PA-C - Last Filed: 12/11/20 17:28> Social History Social History: Social History Social History: Ms. Veras currently resides in [facility]. She has been there just a couple of days after her previous assisted living facility, [facility], closed. She has 2 adult sons and designates her son, Emanuel, as her surrogate decision maker. She would like to be a DNR. Her PCP is Dr. Dmitriy Jama. Smoking status: Never smoker Alcohol intake: never Substance use: never Gender identity (if verbalized by the patient): Female Spiritual care concerns: No <Kevin Collins PA-C - Last Filed: 12/11/20 17:28> Exam Narrative: Exam Narrative: GENERAL: Chronically ill-appearing, well-nourished, and in no acute distress. HEAD: Normocephalic, atraumatic. EYES: PERRLA and EOMI. ENT: Nares clear, no rhinorrhea or ep
[2020-12-11 14:07] LABS: INR 1.3; Prothrombin Time 16.8 Seconds (11.1-14.7)
[2020-12-11 14:08] LABS: Ammonia 23 umol/L (9-30); Partial Thromboplastin Time 31.9 SECONDS (22.3-36.8)
[2020-12-11 14:10] LABS: Alanine Aminotransferase 20 U/L (4-35); Alkaline Phosphatase 236 U/L (38-126); Anion Gap 5 mmol/L (8-16); Aspartate Amino Transferase 43 U/L (14-36); Bilirubin,Total 1.7 mg/dL (0.2-1.3); Blood Urea Nitrogen 33 mg/dL (7-17); Calcium 8.6 mg/dL (8.4-10.2); Carbon Dioxide 25 mmol/L (22-30); Chloride 105 mmol/L (98-107); Estimated CRCL calculation 44 ml/min; Estimated Glomerular Filt Rate 49; Glucose 155 mg/dL (65-105); Lipase 176 U/L (23-300); Potassium 5.2 mmol/L (3.4-5.0); Sodium 135 mmol/L (137-145)
--- NOTE | 2020-12-11 14:31 | PC.NURSE ---
Patient in radiology.
[2020-12-11 16:09] LABS: Add Urine Microscopic? YES; Appearance Urine Cloudy (Clear); Bacteria Urine 2+ /hpf; Bilirubin Urine Negative (Negative); Blood Urine Negative (Negative); Color Urine Yellow (Yellow); Glucose Urine UA Negative (Negative); Ketones Urine Negative (Negative); Leukocyte Esterase Ur Trace LEU/UL (Negative); Mucus Urine Rare /lpf; Nitrate Urine Negative (Negative); Protein Urine Negative (Negative); RBC Urine 0-2 /hpf (0-2); Squamous Epithelial Cell Urine Many /hpf (Few); WBC Urine 0-3 /hpf
[2020-12-11 16:11] LABS: Specific Grav Ur 1.033 (1.001-1.035)
--- NOTE | 2020-12-11 20:37 | PC.NURSE ---
Called [facility] for ETA update. ETA [phone]
--- NOTE | 2020-12-11 21:47 | PC.NURSE ---
[facility] here
== END 2020-12-11 22:00 ==
PROVIDERS: Emergency Medicine; Emergency Medicine Emergency Medical Services; Emergency Provider General Practice; PCP Internal Medicine
DX: K74.60 Unspecified cirrhosis of liver (principal); R18.8 Other ascites; L89.159 Pressure ulcer of sacral region, unspecified stage; F41.9 Anxiety disorder, unspecified; D64.9 Anemia, unspecified; E03.9 Hypothyroidism, unspecified; E11.9 Type 2 diabetes mellitus without complications; Z79.82 Long term (current) use of aspirin; Z79.4 Long term (current) use of insulin; Z66 Do not resuscitate
CPT/HCPCS: 36415; 49083; 51701; 74177; 80053; 81001; 82140; 83690; 85025; 85055; 85610; 85730; 99284; Q9967

== ENCOUNTER 2021-02-10 19:42 | Inpatient (IN) | payer MEDICARE, BC, SELFPAY ==
--- NOTE | ~2021-02-10 | XR_ITS ---
EXAMINATION: XR chest 1V portable EXAM DATE: 02/10/2021 20:31 INDICATION: Fever, transient alteration of awareness, hx of COPD. TECHNIQUE: Portable AP frontal chest x-ray was obtained. Comparison is made to prior examination from 11/16/2020. FINDINGS: Again there is low lung volume which along with AP technique is causing mildly enlarged car diac silhouette. There are multiple old rib fractures. No definite acute airspace disease. No pneumot horax or pleural effusion. IMPRESSION: No acute cardiopulmonary findings. Reviewed, dictated and finalized at location A.
--- NOTE | ~2021-02-10 | US_ITS ---
EXAMINATION: US paracentesis abd w/image DATE: 02/18/2021 10:17 INDICATION: Ascites TECHNIQUE: The procedure and its risks and benefits were discussed with the patient. Potential risks discussed included bleeding and infection. The skin was prepped and draped in sterile fashion. 1% lid ocaine was used for local anesthesia. Under ultrasound guidance, a 5 Fr catheter with trochar was adv anced into the ascites in the left lower quadrant. Fluid was aspirated into vacuum bottles. The aisha ter was removed, and a dressing was applied. There were no immediate complications. FINDINGS: Ultrasound images demonstrate ascites and the catheter within the fluid. IMPRESSION: 1. Successful ultrasound-guided paracentesis yielding 5000 mL of clear yellow fluid. Reviewed, dictated and finalized at location A.
--- NOTE | ~2021-02-10 | CT_ITS ---
EXAMINATION: CT brain wo con DATE: 02/10/2021 23:42 INDICATION: Nausea, vomiting. Fever. TECHNIQUE: Computed tomography (CT) of the head was performed without intravenous contrast. The dose- length product was 605.33 mGy-cm. Automated exposure control and iterative reconstruction technique w ere employed. COMPARISON: CT dated 11/16/2020 FINDINGS: No acute intracranial hemorrhage, infarction, mass or mass effect. Mild generalized atrophy . There are scattered mild periventricular and subcortical white matter changes, most likely related to small vessel ischemic disease (microangiopathy). No ventriculomegaly or midline shift. There is in tracranial atherosclerosis. Paranasal sinuses and mastoids are pneumatized. No depressed skull fractu res. IMPRESSION: 1. No acute intracranial abnormality. Reviewed, dictated and finalized at location A.
--- NOTE | ~2021-02-10 | CT_ITS ---
EXAMINATION: CT abdomen pelvis w con DATE: 02/10/2021 23:42 INDICATION: Confusion. Nausea, vomiting and fever. TECHNIQUE: Computed tomography (CT) of the abdomen and pelvis was performed with 100 cc Omnipaque 350 intravenous contrast. The dose-length product was 1400.85 mGy-cm. Automated exposure control and ite rative reconstruction technique were employed. COMPARISON: CT dated 12/11/2020. FINDINGS: Lung bases unremarkable. No significant vascular abnormality. Mild periportal and gastrohep atic lymphadenopathy. Cirrhosis of the liver with evidence for portal hypertension. Splenomegaly. Lar ge amount of ascites. Cystic lesion tail of the pancreas measures 1.8 cm without significant change a llowing for differences of technique. No free air is identified. There is diffuse subcutaneous edema of the flanks and lower anterior abdominal wall. There is grade 1 spondylolisthesis at L5-S1 secondar y to spondylolysis. Severe lower lumbar spondylosis. IMPRESSION: 1. Cirrhosis of the liver with portal hypertension. 2: Large amount of ascites. 3: Upper abdominal lymphadenopathy, likely reactive. 4: Stable 1.8 cm cystic mass tail of the pancreas. The differential diagnosis includes pseudocyst, in traductal papillary mucinous neoplasm (IPMN), mucinous cystic neoplasm (MCN), and the less common ser ous cystadenoma and neuroendocrine tumor. Reviewed, dictated and finalized at location A. IMPRESSION: 1. Cirrhosis of the liver with portal hypertension. 2: Large amount of ascites. 3: Upper abdominal lymphadenopathy, likely reactive. 4: Stable 1.8 cm cystic mass tail of the pancreas. The differential diagnosis i ncludes pseudocyst, intraductal papillary mucinous neoplasm (IPMN), mucinous cy stic neoplasm (MCN), and the less common serous cystadenoma and neuroendocrine tumor.
[2021-02-10 19:42] VITALS: BP 116/57; PULSE 81; RESP 24; TEMP 39.4; O2SAT 94
--- NOTE | 2021-02-10 19:52 | ECG_ITS ---
Measurements Intervals [place] Rate: 83 P: 101 OK: 227 QRS: 0 QRSD: 94 T: 31 QT: 351 QTc: 413 Interpretive Statements SINUS RHYTHM WITH FIRST DEGREE AV BLOCK BASELINE ARTIFACT- AVF, V3, V6 ABNORMAL ECG Electronically Signed On 02-11-2021 6:26:49 CDT by Drew Hoover D.O.
--- NOTE | 2021-02-10 19:52 | PC.NURSE ---
Patient's son arrives to room and states patient does get periodical paracentesis.
--- NOTE | 2021-02-10 20:37 | ED.AMS ---
HPI - Altered Mental Status General Chief Complaint: Altered Mental Status Stated Complaint: fever/ AMS Time Seen by Provider: 02/10/21 20:04 Source: patient, family (son at bedside) and RN notes reviewed Mode of arrival: EMS Limitations: altered mental status History of Present Illness HPI narrative: This is a 75 year old female with history cirrhosis with ascites who presents from shelter who presents for evaluation of fever and confusion. Patient 's son states he spoke with patient today over the phone, and she told him she was having nausea and vomiting. He also noticed that she was confused. He last spoke to her Thursday and she was normal at that time. Once it was discovered that patient was having fever she was sent to ER for evaluation. Patient reports abdominal pain, nausea, and vomiting. Denies diarrhea and she thinks her last bowel movement was yesterday. Her son states she gets confused like this when she needs another paracentesis. Her last paracentesis was performed about 12 days. Patient denies chest pain, headache, chest pain, cough or shortness of breath. She is being evaluated by liver specialist at [facility]. Son states patient is DNR, and patient declined a drain to help with the ascites. Related Data Home Medications Medication Instructions Recorded Confirmed escitalopram oxalate 5 mg PO DAILY 11/16/20 11/16/20 ferrous sulfate 325 mg PO BIDWM 11/16/20 11/16/20 fluticasone propionate 1 spray INTRANASAL DAILY 11/16/20 11/16/20 furosemide 20 mg PO DAILY 11/16/20 11/16/20 insulin lispro [Humalog U-100 1 sliding scale dose SUBCUT ACHS 11/16/20 11/16/20 Insulin] lactulose 20 g PO TID 11/16/20 11/16/20 levothyroxine 150 mcg PO DAILY 11/16/20 11/16/20 melatonin 10 mg PO HS 11/16/20 11/16/20 nystatin 1 applic TOPICAL BID 11/16/20 11/16/20 propranolol 10 mg PO Q12H 11/16/20 11/16/20 aspirin 81 mg PO DAILY 12/11/20 bisacodyl mg RECTAL 02/10/21 magnesium citrate [Citroma] 02/10/21 magnesium hydroxide [Milk of 02/10/21 Magnesia] mineral oil [Fleet Mineral Oil] RECTAL 02/10/21 sodium phosphates [Fleet Enema] ml RECTAL 02/10/21 spironolactone 02/10/21 Allergies Allergy/AdvReac Type Severity Reaction Status Date / Time Penicillins Allergy Unknown Verified 02/10/21 21:27 sertraline [From Zoloft] Allergy Unknown Verified 02/10/21 21:27 Review of Systems Review of Systems: All systems reviewed & are unremarkable except as noted in HPI and below PMFSH Past Medical History Medical History (Updated 02/11/21 @ 07:17 by Phuong Galloway MD) Anxiety Chronic anemia Cirrhosis of liver Hypothyroid Insulin dependent diabetes mellitus Nonalcoholic steatohepatitis (ZUÑIGA) Surgical History Surgical History No history of previous surgery Family History Family History Father Lung cancer Heart disease Mother No problems noted. Social History Social History (Updated 02/11/21 @ 07:12 by Antonina Cardona DO) Social History: Ms. Veras currently resides at [facility]. She has 2 adult sons and designates her son, Emanuel, as her surrogate decision maker. She would like to be a DNR. Her PCP is Dr. Dmitriy Jama. Smoking status: Never smoker Alcohol intake: never Substance use: never Gender identity (if verbalized by the patient): Female Spiritual care concerns: No Exam Const: General: no acute distress, alert and ill appearing Limitations: altered mental status Other: oriented to person only Eyes: EOM: EOMs intact bilaterally Resp: Effort & Inspection: normal respiratory effort and no retractions Auscultation: clear to auscultation bilaterally Cardio: Rate: regular rate Rhythm: regular rhythm Heart sounds: no murmurs GI: Inspection: distended GI Palp: Yes Soft to palpation, Yes Tenderness to palpation present (GI), No G
[2021-02-10 21:13] LABS: Add Urine Microscopic? YES; Appearance Urine Cloudy (Clear); Bacteria Urine 4+ /hpf; Bilirubin Urine Negative (Negative); Blood Urine Negative (Negative); Color Urine Yellow (Yellow); Glucose Urine UA Negative (Negative); Ketones Urine Negative (Negative); Leukocyte Esterase Ur Negative LEU/UL (Negative); Mucus Urine Rare /lpf; Nitrate Urine Negative (Negative); Protein Urine Negative (Negative); Specific Grav Ur 1.013 (1.001-1.035); Squamous Epithelial Cell Urine Many /hpf (Few)
[2021-02-10 21:23] VITALS: BP 95/69; PULSE 82; RESP 25; TEMP 39.2; O2SAT 95
--- NOTE | 2021-02-10 21:23 | PC.NURSE ---
Patient's bedside glucose is 146.
[2021-02-10 21:26] LABS: Glucose Point of Care 146 mg/dl (65-105)
[2021-02-10 21:35] LABS: Hematocrit 28.4 % (37.0-47.0); Hemoglobin 8.9 g/dL (12.0-15.0); Mean Corpuscular HGB Conc 31.3 g/dl (32-36); Mean Corpuscular Hemoglobin 28.3 pg (26-34); Mean Corpuscular Volume 90.4 fl (80-100); Mean Platelet Volume 13.8 fl (7.4-10.4); Platelet Count Result 45 k/mm3 (150-375); Red Blood Count 3.14 M/mm3 (4.2-5.4); Red Cell Distribution Width 15.9 % (11.5-14.5); White Blood Count 8.7 K/mm3 (4.5-10.0)
[2021-02-10 21:36] LABS: Ammonia 24 umol/L (9-30)
[2021-02-10 21:38] LABS: INR 1.4; Partial Thromboplastin Time 30.9 SECONDS (22.3-36.8); Prothrombin Time 17.3 Seconds (11.1-14.7)
[2021-02-10 21:39] LABS: Alanine Aminotransferase 18 U/L (4-35); Albumin Level 2.7 g/dL (3.5-5.1); Alkaline Phosphatase 182 U/L (38-126); Anion Gap 7 mmol/L (8-16); Aspartate Amino Transferase 32 U/L (14-36); Bilirubin,Total 1.7 mg/dL (0.2-1.3); Blood Urea Nitrogen 35 mg/dL (7-17); Calcium 8.6 mg/dL (8.4-10.2); Carbon Dioxide 22 mmol/L (22-30); Chloride 106 mmol/L (98-107); Estimated Glomerular Filt Rate 40; Glucose 148 mg/dL (65-110); Lactic Acid Reflex 2.2 mmol/L (0.7-2.1); Potassium 4.9 mmol/L (3.4-5.0); Sodium 135 mmol/L (137-145)
[2021-02-10] MEDS: SODIUM CHLORIDE 0.9% IV 1,000 ML 999 ML IV CONT (21:53)
[2021-02-10 22:02] LABS: Band Neutrophils Percent 17 % (0-6); Lymphocytes Absolute Manual 0.43 K/mm3 (1.1-4.5); Monocytes Absolute Manual 0.26 K/mm3 (0.1-0.90); Monocytes Percent Manual 3 % (3-9); Neutrophils Percent Manual 75 % (46-73); Platelet Estimate Decreased (Adequate); Total Cells Counted 100
[2021-02-10 22:03] LABS: Anisocytosis 2+ (NORMAL); Hypochromasia 1+ (NORMAL)
--- NOTE | 2021-02-10 22:44 | PC.NURSE ---
Contacted patient's son to obtain verbal consent for CT. Patient's son, Asif contacted and gave verbal consent.
--- NOTE | 2021-02-10 22:48 | PC.NURSE ---
Patient taken to CT.
--- NOTE | 2021-02-10 23:15 | PC.NURSE ---
Alyse, patient's caregiver at the [facility] calls to get update on patient.
[2021-02-10 23:23] VITALS: BP 105/41; PULSE 76; RESP 26; O2SAT 95
[2021-02-11] VITALS (13 sets, daily range): BP systolic 95–119; BP diastolic 42–63; PULSE 56–73; RESP 16–21; TEMP 36.2–37; O2SAT 93–100
[2021-02-11 00:27] LABS: Reflex Lactic Acid Yes or No Add Lactic
[2021-02-11 00:50] LABS: Lactic Acid 2.5 mmol/L (0.7-2.1)
[2021-02-11] MEDS: SODIUM CHLORIDE 0.9% IV 1,000 ML 999 ML IV CONT (01:01)
[2021-02-11] MEDS: ALBUMIN HUMAN 25% 25 GM/100 ML 200 ML IVPB (01:28)
[2021-02-11 02:04] LABS: Appearance Peritoneal Fluid Clear (Clear); Color Peritoneal Fluid Yellow (Colorless); Source Peritoneal Fluid Peritoneal Fluid
[2021-02-11 02:15] LABS: Neutrophils Peritoneal Fluid 6 % (0-25); Nucleated Cells Peritoneal Flu 199 /uL (0-500); RBC Peritoneal Fluid 60 /uL (0-100000)
[2021-02-11 02:16] LABS: Lymphocytes Peritoneal Fluid 57 %; Macrophages Peritoneal Fluid 27 %; Mesothelial Cells Peritoneal Fluid 4 %; Monocytes Peritoneal Fluid 6 %
[2021-02-11 04:53] LABS: Glucose Point of Care 150 mg/dl (65-105)
--- NOTE | 2021-02-11 07:05 | PM.IMHP ---
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 prison staff also reported the patient had been having nausea and vomiting and generalized abdominal pain. The patient reported nausea and vomiting. She thinks her last bowel movement was yesterday. The patient gets confused like this whenever she needs paracentesis. Her last paracentesis was 12 days ago. She is being evaluated at [facility] for her ZUÑIGA with cirrhosis. The patient has declined a indwelling catheter for recurrent drainage of ascites. The patient is usually alert orient x4 but is only alert orient times 1-2 in the ER. ER physician performed paracentesis with drainage of 3 L of peritoneal fluid that appears clear. the patient is able to tell me her name, month and year. She knows she is in the hospital but does not no which hospital she is at. She reports that she feels extremely cold. Review of Systems Review of Systems: ROS unobtainable: Yes unobtainable due to mental status PMFSH Past Medical History Medical History Anxiety Chronic anemia Cirrhosis of liver Hypothyroid Insulin dependent diabetes mellitus Nonalcoholic steatohepatitis (ZUÑIGA) Surgical History Surgical History No history of previous surgery Family History Family History Father Lung cancer Heart disease Mother No problems noted. Social History Social History (Updated 02/11/21 @ 07:12 by Antonina Cardona DO) Social History: Ms. Veras currently resides at [facility]. She has 2 adult sons and designates her son, Emanuel, as her surrogate decision maker. She would like to be a DNR. Her PCP is Dr. Dmitriy Jama. Smoking status: Never smoker Alcohol intake: never Substance use: never Gender identity (if verbalized by the patient): Female Spiritual care concerns: No Meds Home Medications and Allergies Home Medications Medication Instructions Recorded Confirmed Type escitalopram oxalate 5 mg PO DAILY 11/16/20 11/16/20 History ferrous sulfate 325 mg PO BIDWM 11/16/20 11/16/20 History fluticasone propionate 1 spray INTRANASAL DAILY 11/16/20 11/16/20 History furosemide 20 mg PO DAILY 11/16/20 11/16/20 History insulin lispro [Humalog U-100 1 sliding scale dose SUBCUT ACHS 11/16/20 11/16/20 History Insulin] lactulose 20 g PO TID 11/16/20 11/16/20 History levothyroxine 150 mcg PO DAILY 11/16/20 11/16/20 History melatonin 10 mg PO HS 11/16/20 11/16/20 History nystatin 1 applic TOPICAL BID 11/16/20 11/16/20 History propranolol 10 mg PO Q12H 11/16/20 11/16/20 History lorazepam 0.5 mg PO BID PRN #10 tablet 11/19/20 Rx oxycodone 5 mg PO Q6H PRN #10 tablet 11/19/20 Rx tamsulosin 0.4 mg PO DAILY #30 cap 11/19/20 Rx aspirin 81 mg PO DAILY 12/11/20 History bisacodyl mg RECTAL 02/10/21 History magnesium citrate [Citroma] 02/10/21 History magnesium hydroxide [Milk of 02/10/21 History Magnesia] mineral oil [Fleet Mineral Oil] RECTAL 02/10/21 History sodium phosphates [Fleet Enema] ml RECTAL 02/10/21 History spironolactone 02/10/21 History Allergies Allergy/AdvReac Type Severity Reaction Status Date / Time Penicillins Allergy Unknown Verified 02/10/21 21:27 sertraline [From Zoloft] Allergy Unknown Verified 02/10/21 21:27 Vital Signs Vital Signs - 24 hr 02/10/21 19:42 02/10/21 21:23 02/10/21 23:23 Temperature 103.0 F H 102.5 F H Pulse Rate 81 82 76 Respiratory Rate 24 H 25 H 26 H Blood Pressure 116/57 L 95/69 L 105/41 L Pulse Oximetry 94 95 95 02/11/21 01:02 02/11/21 01:45 02/11/21 02:40 Temperature
[2021-02-11 09:31] LABS: Glucose Point of Care 161 mg/dl (65-105)
[2021-02-11 09:32] LABS: Hematocrit 23.8 % (37.0-47.0); Hemoglobin 7.5 g/dL (12.0-15.0); Immature Platelet Fraction Pct 6.6 % (0.9-11.2); Mean Corpuscular HGB Conc 31.5 g/dl (32-36); Mean Corpuscular Hemoglobin 28.5 pg (26-34); Mean Corpuscular Volume 90.5 fl (80-100); Platelet Count Result 29 k/mm3 (150-375); Red Blood Count 2.63 M/mm3 (4.2-5.4); White Blood Count 6.5 K/mm3 (4.5-10.0)
[2021-02-11 09:49] LABS: Lactic Acid Reflex 1.6 mmol/L (0.7-2.1)
[2021-02-11 09:51] LABS: Alanine Aminotransferase 15 U/L (4-35); Albumin Level 2.6 g/dL (3.5-5.1); Alkaline Phosphatase 106 U/L (38-126); Anion Gap 8 mmol/L (8-16); Aspartate Amino Transferase 27 U/L (14-36); Bilirubin,Total 1.3 mg/dL (0.2-1.3); Blood Urea Nitrogen 36 mg/dL (7-17); Calcium 8.2 mg/dL (8.4-10.2); Carbon Dioxide 19 mmol/L (22-30); Chloride 107 mmol/L (98-107); Estimated Glomerular Filt Rate 44; Glucose 149 mg/dL (65-110); Potassium 4.4 mmol/L (3.4-5.0); Sodium 134 mmol/L (137-145)
[2021-02-11] MEDS: ASPIRIN 81 MG CHEWABLE TABLET PO (11:49)
[2021-02-11] MEDS: LEVOTHYROXINE SODIUM 150 MCG TABLET PO (11:51)
[2021-02-11] MEDS: PROPRANOLOL HCL 10 MG TABLET PO ×2 (11:51→20:42)
[2021-02-11] MEDS: ESCITALOPRAM OXALATE 5 MG TABLET PO (11:53)
[2021-02-11] MEDS: TAMSULOSIN HCL 0.4 MG CAPSULE PO (11:53)
[2021-02-11] MEDS: SPIRONOLACTONE 25 MG TABLET PO (11:53)
[2021-02-11] MEDS: FUROSEMIDE 20 MG TABLET PO (11:53)
[2021-02-11] MEDS: LACTULOSE 20 GM/30 ML UDC PO (11:54)
[2021-02-11] MEDS: FLUTICASONE PROPIONATE 0.05% NA SPR 16 GM BTL (*BKC) 1 SPRAY NASAL (11:54)
[2021-02-11 13:41] LABS: Glucose Point of Care 177 mg/dl (65-105)
--- NOTE | 2021-02-11 16:06 | PM.EVENT ---
Event Note Event Note Event Note: Patient chart reviewed. Patient was seen and evaluated in the emergency department in the morning. Her hemodynamics are stable. 3 L of ascitic fluid was drained in the emergency department. Fluid analysis is pending. She has been started on ceftriaxone empirically for SBP. Her last paracentesis was 12 days ago. She denied have any nausea vomiting and abdominal pain at the time my evaluation. She will be continued on lactulose. Continue to monitor her mental status. I will continue her baseline medication including Propanol, Lasix and Aldactone.
[2021-02-11] MEDS: FERROUS SULFATE 324 MG TABLET PO (16:50)
[2021-02-11 19:25] LABS: Glucose Point of Care 164 mg/dl (65-105)
[2021-02-11] MEDS: TOLNAFTATE 1% POWDER 45 GM BTL 1 APPLIC TOPICAL (20:43)
[2021-02-11 21:24] LABS: Glucose Point of Care 173 mg/dl (65-105)
[2021-02-12] MEDS: LEVOTHYROXINE SODIUM 150 MCG TABLET PO (05:52)
[2021-02-12 05:56] LABS: Basophils Percent Auto 0.2 % (0.2-1.2); Eosinophils Absolute Auto 0.1 K/mm3 (0-0.3); Eosinophils Percent Auto 1.7 % (0-4.4); Hematocrit 23.8 % (37.0-47.0); Hemoglobin 7.6 g/dL (12.0-15.0); Immature Granulocyte Absolute 0.01 K/mm3 (0.00-0.031); Immature Granulocyte Percent A 0.2 % (0-0.5); Immature Platelet Fraction Pct 8.1 % (0.9-11.2); Lymphocytes Percent Auto 6.8 % (18.3-44.2); Mean Corpuscular HGB Conc 31.9 g/dl (32-36); Mean Corpuscular Hemoglobin 29.1 pg (26-34); Mean Corpuscular Volume 91.2 fl (80-100); Mean Platelet Volume 13.2 fl (7.4-10.4); Monocytes Absolute Auto 0.6 K/mm3 (0.1-0.6); Monocytes Percent Auto 9.5 % (2.6-8.5); Neutrophils Absolute Auto 4.8 K/mm3 (1.3-6.7); Neutrophils Percent Auto 81.6 % (45.5-73.1); Platelet Count Result 37 k/mm3 (150-375); Red Blood Count 2.61 M/mm3 (4.2-5.4); White Blood Count 5.9 K/mm3 (4.5-10.0)
[2021-02-12 06:00] VITALS: BP 116/43; PULSE 58; RESP 20; TEMP 36.2; O2SAT 98
[2021-02-12 06:08] LABS: Alanine Aminotransferase 13 U/L (4-35); Albumin Level 2.3 g/dL (3.5-5.1); Alkaline Phosphatase 100 U/L (38-126); Anion Gap 9 mmol/L (8-16); Aspartate Amino Transferase 25 U/L (14-36); Bilirubin,Total 0.8 mg/dL (0.2-1.3); Blood Urea Nitrogen 42 mg/dL (7-17); Calcium 8.4 mg/dL (8.4-10.2); Carbon Dioxide 21 mmol/L (22-30); Chloride 102 mmol/L (98-107); Estimated CRCL calculation 31 ml/min; Estimated Glomerular Filt Rate 34; Glucose 85 mg/dL (65-110); Potassium 4.4 mmol/L (3.4-5.0); Sodium 132 mmol/L (137-145)
[2021-02-12 06:55] LABS: Platelet Estimate Decreased (Adequate)
[2021-02-12 06:56] LABS: Anisocytosis 1+ (NORMAL); Poikilocytosis 1+ (NORMAL)
[2021-02-12 07:56] LABS: Glucose Point of Care 80 mg/dl (65-105)
[2021-02-12 09:07] VITALS: PULSE 58
[2021-02-12] MEDS: FUROSEMIDE 20 MG TABLET PO (09:07)
[2021-02-12] MEDS: ASPIRIN 81 MG CHEWABLE TABLET PO (09:07)
[2021-02-12] MEDS: LACTULOSE 20 GM/30 ML UDC PO ×2 (09:07→21:18)
[2021-02-12] MEDS: ESCITALOPRAM OXALATE 5 MG TABLET PO (09:07)
[2021-02-12] MEDS: FLUTICASONE PROPIONATE 0.05% NA SPR 16 GM BTL (*BKC) 1 SPRAY NASAL (09:07)
[2021-02-12] MEDS: SPIRONOLACTONE 25 MG TABLET PO (09:07)
[2021-02-12] MEDS: TAMSULOSIN HCL 0.4 MG CAPSULE PO (09:07)
[2021-02-12] MEDS: PROPRANOLOL HCL 10 MG TABLET PO ×2 (09:07→21:04)
[2021-02-12] MEDS: FERROUS SULFATE 324 MG TABLET PO ×2 (09:07→16:42)
[2021-02-12] MEDS: TOLNAFTATE 1% POWDER 45 GM BTL 1 APPLIC TOPICAL ×2 (09:08→21:06)
[2021-02-12 12:27] LABS: Glucose Point of Care 108 mg/dl (65-105)
--- NOTE | 2021-02-12 13:57 | PM.IMPN ---
Progress Note: A&P Assessment and Plan (1) Cirrhosis of liver: Qualifiers: Hepatic cirrhosis type: other cirrhosis Qualified Code(s): K74.69 - Other cirrhosis of liver Code(s): K74.60 - Unspecified cirrhosis of liver Status: Acute Assessment and Plan: Her cirrhosis was due to ZUÑIGA. She seems to be compensated at this time. Her ascites was tapped and treat L of ascitic fluid was taken off in the emergency department. Her mental status has improved. She has minimal asterixis. She had 1 bowel movement today. I will increase the dose of lactulose to 3 times a day to have a minimum 2-3 bowel movements per day. She does not have any signs of GI bleeding. Continue propranolol for secondary prophylaxis. thrombocytopenia is likely secondary to her cirrhosis. It seems stable. Her H&H seems stable as well. (2) Abdominal ascites: Qualifiers: Ascites type: due to alcoholic hepatitis Qualified Code(s): K70.11 - Alcoholic hepatitis with ascites Code(s): R18.8 - Other ascites Status: Acute Assessment and Plan: 3 L of ascitic fluid was drained at the time of presentation in the emergency department. ascitic fluid neutrophil count is 199 Which is not suggestive of SBP. I will stop ceftriaxone. Follow rest of the ascitic fluid testing and culture. Her abdomen is soft and does not seems to be in need for a repeat paracentesis. Her last paracentesis was about 18 days ago. (3) Sepsis: Qualifiers: Sepsis acute organ dysfunction status: with acute organ dysfunction Sepsis type: sepsis due to unspecified organism Severe sepsis acute organ dysfunction type: encephalopathy Severe sepsis shock status: without septic shock Qualified Code(s): A41.9 - Sepsis, unspecified organism; R65.20 - Severe sepsis without septic shock; G93.40 - Encephalopathy, unspecified Code(s): A41.9 - Sepsis, unspecified organism Status: Acute Assessment and Plan: There was question of SBP which has been ruled out now. Blood culture is growing g positive cocci in chain. Continue vancomycin. (4) Metabolic encephalopathy: Code(s): G93.41 - Metabolic encephalopathy Status: Acute Assessment and Plan: Her mental status seems to be improving. Seems to be at her baseline now. ammonia was within normal range. Will increase the dose of lactulose to have 2-3 bowel movements minimum. (5) Bacteremia: Code(s): R78.81 - Bacteremia Status: Acute Assessment and Plan: Blood culture has been reported as Gram-positive cocci in chains. He is currently on vancomycin IV. I will send repeat blood culture today. (6) YUNG (acute kidney injury): Code(s): N17.9 - Acute kidney failure, unspecified Status: Acute Assessment and Plan: Creatinine has trended up. I will put Lasix and spironolactone on hold. She seems to be euvolemic on clinical exam. Additional Plan DVT prophylaxis with SCD boots secondary to thrombocytopenia Subjective Date/time seen: 02/12/21 13:57 She was feeling much better at the time of my evaluation. Her confusion has improved significantly. She denied have any chest pain shortness of breath home of fever chills. She denied have any abdominal pain nausea and vomiting. She had 1 bowel movement in the last 24 hours. Neutrophil count in her ascitic fluid was 199. Blood culture has been reported to have Gram-positive cocci in chains. She is currently on Dilaudid. Review of Systems Review of Systems: All systems reviewed & are unremarkable except as noted in HPI and below Exam Narrative: Exam Narrative: General: Chronically ill-appearing, elderly, well-nourished HEENT: noticed Respiratory: clear to auscultation bilaterally, no increased work of breathing Cardiovascular: regular rate, regular rhyth
[2021-02-12 14:35] VITALS: BP 121/46; PULSE 64; RESP 20; TEMP 37; O2SAT 99
--- NOTE | 2021-02-12 14:50 | PCNSR ---
On 02/12/21, the student, Teresa Dean, provided care and [facility]. I have reviewed the student's documentation and agree with the findings.
[2021-02-12 17:09] LABS: Glucose Point of Care 147 mg/dl (65-105)
[2021-02-12 20:00] VITALS: PULSE 71; RESP 20; O2SAT 100
[2021-02-12 20:46] VITALS: BP 114/48; PULSE 66; RESP 20; TEMP 36.7; O2SAT 100
[2021-02-12 20:50] LABS: Glucose Point of Care 149 mg/dl (65-105)
[2021-02-12 21:04] VITALS: PULSE 71
[2021-02-13 05:26] VITALS: BP 127/51; PULSE 62; RESP 20; TEMP 36.4; O2SAT 98
[2021-02-13 05:43] LABS: Basophils Percent Auto 0.4 % (0.2-1.2); Eosinophils Absolute Auto 0.2 K/mm3 (0-0.3); Eosinophils Percent Auto 2.8 % (0-4.4); Hematocrit 24.6 % (37.0-47.0); Hemoglobin 7.8 g/dL (12.0-15.0); Immature Granulocyte Absolute 0.02 K/mm3 (0.00-0.031); Immature Granulocyte Percent A 0.4 % (0-0.5); Immature Platelet Fraction Pct 7.4 % (0.9-11.2); Lymphocytes Absolute Auto 0.44 K/mm3 (0.9-3.2); Lymphocytes Percent Auto 8.3 % (18.3-44.2); Mean Corpuscular HGB Conc 31.7 g/dl (32-36); Mean Corpuscular Hemoglobin 28.5 pg (26-34); Mean Corpuscular Volume 89.8 fl (80-100); Monocytes Absolute Auto 0.4 K/mm3 (0.1-0.6); Monocytes Percent Auto 8.1 % (2.6-8.5); Neutrophils Absolute Auto 4.3 K/mm3 (1.3-6.7); Platelet Count Result 43 k/mm3 (150-375); Red Blood Count 2.74 M/mm3 (4.2-5.4); Red Cell Distribution Width 15.9 % (11.5-14.5); White Blood Count 5.3 K/mm3 (4.5-10.0)
[2021-02-13 05:57] LABS: Anion Gap 9 mmol/L (8-16); Blood Urea Nitrogen 50 mg/dL (7-17); Calcium 8.3 mg/dL (8.4-10.2); Carbon Dioxide 20 mmol/L (22-30); Chloride 103 mmol/L (98-107); Estimated CRCL calculation 26 ml/min; Estimated Glomerular Filt Rate 28; Glucose 95 mg/dL (65-110); Magnesium 2.1 mg/dL (1.6-2.3); Phosphorus 3.7 mg/dL (2.5-4.5); Potassium 4.5 mmol/L (3.4-5.0); Sodium 132 mmol/L (137-145)
[2021-02-13] MEDS: LEVOTHYROXINE SODIUM 150 MCG TABLET PO (05:59)
[2021-02-13] MEDS: LACTULOSE 20 GM/30 ML UDC PO ×2 (06:00→21:21)
[2021-02-13 08:28] LABS: Glucose Point of Care 110 mg/dl (65-105)
[2021-02-13] MEDS: FERROUS SULFATE 324 MG TABLET PO ×2 (08:49→16:29)
[2021-02-13] MEDS: ASPIRIN 81 MG CHEWABLE TABLET PO (08:49)
[2021-02-13 08:50] VITALS: PULSE 59
[2021-02-13] MEDS: ESCITALOPRAM OXALATE 5 MG TABLET PO (08:50)
[2021-02-13] MEDS: TAMSULOSIN HCL 0.4 MG CAPSULE PO (08:50)
[2021-02-13] MEDS: FLUTICASONE PROPIONATE 0.05% NA SPR 16 GM BTL (*BKC) 1 SPRAY NASAL (08:50)
[2021-02-13] MEDS: PROPRANOLOL HCL 10 MG TABLET PO ×2 (08:50→21:21)
[2021-02-13] MEDS: TOLNAFTATE 1% POWDER 45 GM BTL 1 APPLIC TOPICAL ×2 (08:52→21:22)
[2021-02-13 12:34] LABS: Glucose Point of Care 99 mg/dl (65-105)
[2021-02-13 13:15] VITALS: BP 119/42; PULSE 56; RESP 18; TEMP 36.2; O2SAT 99
[2021-02-13 16:40] LABS: Glucose Point of Care 91 mg/dl (65-105)
--- NOTE | 2021-02-13 17:45 | PM.IMPN ---
Progress Note: A&P Assessment and Plan (1) Abdominal ascites: Qualifiers: Ascites type: due to alcoholic hepatitis Qualified Code(s): K70.11 - Alcoholic hepatitis with ascites Code(s): R18.8 - Other ascites Status: Acute Assessment and Plan: 3 L of ascitic fluid was drained at the time of presentation in the emergency department. ascitic fluid neutrophil count is 199 Which is not suggestive of SBP. ceftriaxone discontinued ascitic fluid testing and culture. (2) Sepsis: Qualifiers: Sepsis acute organ dysfunction status: with acute organ dysfunction Sepsis type: sepsis due to unspecified organism Severe sepsis acute organ dysfunction type: encephalopathy Severe sepsis shock status: without septic shock Qualified Code(s): A41.9 - Sepsis, unspecified organism; R65.20 - Severe sepsis without septic shock; G93.40 - Encephalopathy, unspecified Code(s): A41.9 - Sepsis, unspecified organism Status: Acute Assessment and Plan: Blood culture is growing g positive cocci in chain. Continue vancomycin PCN allergy (3) Metabolic encephalopathy: Code(s): G93.41 - Metabolic encephalopathy Status: Acute Assessment and Plan: Her mental status seems to be improving. almost at her baseline now. ammonia was within normal range. lactulose to have 2-3 bowel movements minimum. (4) YUNG (acute kidney injury): Code(s): N17.9 - Acute kidney failure, unspecified Status: Acute Assessment and Plan: Creatinine still trending up Continue to hold Lasix and spironolactone Will consult Nephrology if continues to rise (5) Bacteremia due to group B Streptococcus: Code(s): R78.81 - Bacteremia; B95.1 - Streptococcus, group B, as the cause of diseases classified elsewhere Status: Acute Assessment and Plan: patient currently on vancomycin and continues to improve (6) Liver cirrhosis secondary to ZUÑIGA: Code(s): K75.81 - Nonalcoholic steatohepatitis (ZUÑIGA); K74.60 - Unspecified cirrhosis of liver Status: Acute Assessment and Plan: remains compensated at this time. Her ascites was tapped and treat L of ascitic fluid was taken off in the emergency department. lactulose to 3 times a day to have a minimum 2-3 bowel movements per day. Continue propranolol for secondary prophylaxis. thrombocytopenia is likely secondary to her cirrhosis. Additional Plan VTEP SCDs Subjective Date/time seen: 02/13/21 17:45 Patient sitting up in bed eating dinner states that she feels better she is noted to have intermittent confusion this is discussed with staff who states that this is how she has been since arrival. Exam Narrative: GEN: NAD, AAOx2, cooperative HEENT: NCAT, MMM, EOMI Neck: no JVD Heart: S1S2 RRR Lungs: CTA B/l Abd: soft, NT, ND, Ext: moves all, no cyanosis, no clubbing Neuro: slow cognition, moves all extremities equally, Cranial nerves intact, gait not assessed Psych: mood and affect congruent Objective Data Vital Signs Vital Signs: Vital Signs - 24 hr 02/12/21 20:00 02/12/21 20:46 02/12/21 21:04 Temperature 98.1 F Pulse Rate 71 66 71 Respiratory Rate 20 20 Blood Pressure 114/48 L Pulse Oximetry 100 100 02/13/21 05:26 02/13/21 08:50 02/13/21 13:15 Temperature 97.5 F L 97.2 F L Pulse Rate 62 59 L 56 L Respiratory Rate 20 18 Blood Pressure 127/51 L 119/42 L Pulse Oximetry 98 99 Intake/Output Intake/Output: Intake & Output 02/10/21 02/11/21 02/12/21 02/13/21 23:59 23:59 23:59 23:59 Intake Total 1100 2630 1310 610 Output Total 1050 75 Balance 1100 2630 260 535 Meds/Results Medications: Active Medications Generic Name Dose Route Start Last Admin Trade Name Freq PRN Reason Stop Dose Admin Aspirin 81 mg 02/11/21 09:00 02/13/21 08:49 Aspirin 81 Mg Chewable Tablet PO 81 mg LUCILA
[2021-02-13 20:00] VITALS: PULSE 56; RESP 18; O2SAT 99
[2021-02-13 21:21] VITALS: PULSE 70
[2021-02-13 21:28] LABS: Glucose Point of Care 125 mg/dl (65-105)
[2021-02-13 21:46] VITALS: BP 123/54; PULSE 56; RESP 18; TEMP 36.1; O2SAT 99
--- NOTE | 2021-02-14 | ECHO_ITS ---
Patient Info Name: Angeles Veras Age: 75 years : 1945 Gender: Female Ht: 64 in Wt: 175 lbs BSA: 1.92 m2 HR: 49 bpm BP: 133 / 48 mmHg Technical Quality: Good Exam Date: 02/14/2021 9:56 AM Exam Location: [facility] Patient Status: Inpatient Admit Date: 02/11/2021 Staff Ordering Physician: Annamarie Valadez MD Stock Fitter: Jr Anderson RDCS, RT Attending Provider: Antonina Cardona DO Referring Physician: Allyson BARRIOS; Exam Type: CA echo doppler color flow Study Info Indications R65.20 - Severe sepsis without septic shock Complete two-dimensional, color flow and Doppler transthoracic echocardiogram is performed. Summary 1. Complete two-dimensional, color flow and Doppler transthoracic echocardiogram is performed. 2. Left ventricular systolic function is normal, estimated at 55-60%. 3. There is mildly increased left ventricular wall thickness. 4. The left ventricular diastolic function is grade I diastolic dysfunction. 5. Left atrial chamber dimension is moderately enlarged. 6. There is mild mitral valve regurgitation. 7. There is mild mitral valve calcification. 8. There is mild aortic valve calcification. 9. There is no aortic valve stenosis. Left Ventricle Left ventricular chamber dimension is normal. Left ventricular systolic function is normal, estimated at 55-60%. There is mildly increased left ventricular wall thickness. Left ventricular septal wall motion is normal. The left ventricular diastolic function is grade I diastolic dysfunction. Right Ventricle Right ventricular chamber dimension is normal. Right ventricular systolic function is normal. Left Atria Left atrial chamber dimension is moderately enlarged. Right Atria Right atrial chamber dimension is normal. Atrial Septum Intact interatrial septum visualized by color flow imaging. Aortic Valve The aortic valve is trileaflet. There is no aortic valve stenosis. There is no aortic valve regurgitation. There is mild aortic valve calcification. Pulmonic Valve The pulmonic valve is normal. There is no pulmonic valve stenosis. There is no pulmonic regurgitation. Mitral Valve The mitral valve has normal leaflets. There is no mitral valve stenosis. There is mild mitral valve regurgitation. There is mild mitral valve calcification. Tricuspid Valve The tricuspid valve leaflets are normal. There is no significant tricuspid valve stenosis. There is no tricuspid valve regurgitation. Pericardium/Pleural The pericardium appears normal. There is no pericardial effusion. Inferior Vena Cava Normal inferior vena cava with >50% collapse upon inspiration consistent with elevated right atrial pressure, 15 mmHg. Aorta The aortic root size at the sinus of Valsalva is normal. The prox ascending aorta size is normal. Left Ventricular Outflow Tract Name Value Normal LVOT 2D LVOT Diameter 2.0 cm LVOT Doppler LVOT Peak Gradient 4 mmHg LVOT Mean Gradient 2 mmHg LVOT VTI 26 cm LVOT VTI/AV VTI Ra
[2021-02-14 05:31] LABS: Basophils Percent Auto 0.6 % (0.2-1.2); Eosinophils Absolute Auto 0.2 K/mm3 (0-0.3); Eosinophils Percent Auto 4.9 % (0-4.4); Hematocrit 24.4 % (37.0-47.0); Hemoglobin 7.6 g/dL (12.0-15.0); Immature Granulocyte Absolute 0.04 K/mm3 (0.00-0.031); Immature Granulocyte Percent A 1.2 % (0-0.5); Immature Platelet Fraction Pct 5.7 % (0.9-11.2); Lymphocytes Absolute Auto 0.42 K/mm3 (0.9-3.2); Lymphocytes Percent Auto 12.8 % (18.3-44.2); Mean Corpuscular HGB Conc 31.1 g/dl (32-36); Mean Corpuscular Hemoglobin 27.7 pg (26-34); Mean Corpuscular Volume 89.1 fl (80-100); Monocytes Absolute Auto 0.3 K/mm3 (0.1-0.6); Monocytes Percent Auto 8.8 % (2.6-8.5); Neutrophils Absolute Auto 2.4 K/mm3 (1.3-6.7); Neutrophils Percent Auto 71.7 % (45.5-73.1); Platelet Count Result 39 k/mm3 (150-375); Red Blood Count 2.74 M/mm3 (4.2-5.4); Red Cell Distribution Width 15.7 % (11.5-14.5); White Blood Count 3.3 K/mm3 (4.5-10.0)
[2021-02-14 05:39] VITALS: BP 133/48; PULSE 58; RESP 20; TEMP 36.1; O2SAT 98
[2021-02-14 05:47] LABS: Alanine Aminotransferase 13 U/L (4-35); Albumin Level 2.1 g/dL (3.5-5.1); Alkaline Phosphatase 104 U/L (38-126); Anion Gap 6 mmol/L (8-16); Aspartate Amino Transferase 23 U/L (14-36); Bilirubin,Total 0.7 mg/dL (0.2-1.3); Blood Urea Nitrogen 52 mg/dL (7-17); Calcium 8.3 mg/dL (8.4-10.2); Carbon Dioxide 22 mmol/L (22-30); Chloride 105 mmol/L (98-107); Estimated CRCL calculation 27 ml/min; Estimated Glomerular Filt Rate 29; Glucose 80 mg/dL (65-110); Magnesium 2.2 mg/dL (1.6-2.3); Potassium 4.5 mmol/L (3.4-5.0); Sodium 133 mmol/L (137-145)
[2021-02-14] MEDS: LEVOTHYROXINE SODIUM 150 MCG TABLET PO (05:58)
[2021-02-14] MEDS: LACTULOSE 20 GM/30 ML UDC PO ×3 (05:59→21:06)
[2021-02-14 06:27] LABS: Ovalocytes 2+ (NORMAL); Platelet Estimate Decreased (Adequate); Target Cells 1+ (NORMAL)
[2021-02-14 06:28] LABS: Hypochromasia 2+ (NORMAL)
[2021-02-14 08:50] VITALS: PULSE 62
[2021-02-14] MEDS: PROPRANOLOL HCL 10 MG TABLET PO ×2 (08:50→21:06)
[2021-02-14] MEDS: FERROUS SULFATE 324 MG TABLET PO ×2 (08:50→16:57)
[2021-02-14] MEDS: ASPIRIN 81 MG CHEWABLE TABLET PO (08:50)
[2021-02-14] MEDS: TAMSULOSIN HCL 0.4 MG CAPSULE PO (08:50)
[2021-02-14] MEDS: ESCITALOPRAM OXALATE 5 MG TABLET PO (08:51)
[2021-02-14] MEDS: FLUTICASONE PROPIONATE 0.05% NA SPR 16 GM BTL (*BKC) 1 SPRAY NASAL (08:51)
[2021-02-14] MEDS: TOLNAFTATE 1% POWDER 45 GM BTL 1 APPLIC TOPICAL ×2 (08:52→21:08)
[2021-02-14 09:15] LABS: Glucose Point of Care 98 mg/dl (65-105)
[2021-02-14 13:07] LABS: Glucose Point of Care 137 mg/dl (65-105)
--- NOTE | 2021-02-14 13:57 | PM.IMPN ---
Progress Note: A&P Assessment and Plan (1) Abdominal ascites: Qualifiers: Ascites type: due to alcoholic hepatitis Qualified Code(s): K70.11 - Alcoholic hepatitis with ascites Code(s): R18.8 - Other ascites Status: Acute Assessment and Plan: 3 L of ascitic fluid was drained at the time of presentation in the emergency department. ascitic fluid neutrophil count is 199 Which is not suggestive of SBP. ceftriaxone discontinued ascitic fluid testing and culture.-> group B strep (2) Sepsis: Qualifiers: Sepsis acute organ dysfunction status: with acute organ dysfunction Sepsis type: sepsis due to unspecified organism Severe sepsis acute organ dysfunction type: encephalopathy Severe sepsis shock status: without septic shock Qualified Code(s): A41.9 - Sepsis, unspecified organism; R65.20 - Severe sepsis without septic shock; G93.40 - Encephalopathy, unspecified Code(s): A41.9 - Sepsis, unspecified organism Status: Acute Assessment and Plan: Blood culture is growing g positive group B stret Continue vancomycin PCN allergy (3) Metabolic encephalopathy: Code(s): G93.41 - Metabolic encephalopathy Status: Acute Assessment and Plan: Her mental status seems to be improving. almost at her baseline now. ammonia was within normal range. lactulose to have 2-3 bowel movements minimum. (4) YUNG (acute kidney injury): Code(s): N17.9 - Acute kidney failure, unspecified Status: Acute Assessment and Plan: Creatinine still trending up Continue to hold Lasix and spironolactone consult Nephrology (5) Bacteremia due to group B Streptococcus: Code(s): R78.81 - Bacteremia; B95.1 - Streptococcus, group B, as the cause of diseases classified elsewhere Status: Acute Assessment and Plan: patient currently on vancomycin and continues to improve consult w Dr Longo pending (6) Liver cirrhosis secondary to ZUÑIGA: Code(s): K75.81 - Nonalcoholic steatohepatitis (ZUÑIGA); K74.60 - Unspecified cirrhosis of liver Status: Acute Assessment and Plan: remains compensated at this time. Her ascites was tapped and treat L of ascitic fluid was taken off in the emergency department. lactulose to 3 times a day to have a minimum 2-3 bowel movements per day. Continue propranolol for secondary prophylaxis. thrombocytopenia is likely secondary to her cirrhosis. Additional Plan VTEP SCDs Subjective Date/time seen: 02/14/21 13:57 patient afebrile and clinically looks improved will speak with Dr. longo regarding positive blood cultures for his antibiotic recommendations. DC planning after consult Exam Narrative: GEN: NAD, AAOx3, cooperative HEENT: NCAT, MMM, EOMI Neck: no JVD Heart: S1S2 RRR Lungs: CTA B/l Abd: soft, NT, ND, Ext: moves all, no cyanosis, no clubbing Neuro: slow cognition, moves all extremities equally, Cranial nerves intact, gait not assessed Psych: mood and affect congruent Objective Data Vital Signs Vital Signs: Vital Signs - 24 hr 02/13/21 20:00 02/13/21 21:21 02/13/21 21:46 Temperature 96.9 F L Pulse Rate 56 L 70 56 L Respiratory Rate 18 18 Blood Pressure 123/54 L Pulse Oximetry 99 99 02/14/21 05:39 02/14/21 08:50 Temperature 96.9 F L Pulse Rate 58 L 62 Respiratory Rate 20 Blood Pressure 133/48 L Pulse Oximetry 98 Intake/Output Intake/Output: Intake & Output 02/11/21 02/12/21 02/13/21 02/14/21 23:59 23:59 23:59 23:59 Intake Total 2630 1310 850 870 Output Total 1050 75 Balance 2630 260 775 870 Meds/Results Medications: Active Medications Generic Name Dose Route Start Last Admin Trade Name Freq PRN Reason Stop Dose Admin Aspirin 81 mg 02/11/21 09:00 02/14/21 08:50 Aspirin 81 Mg Chewable Tablet PO 81 mg DAILY SHERRILL Administration Dext
[2021-02-14 14:00] VITALS: BP 110/56; PULSE 63; RESP 16; TEMP 36.6; O2SAT 99
[2021-02-14 15:37] LABS: Glucose Peritoneal Fluid 163 mg/dL; Total Protein Peritoneal Fluid <3.0 g/dL
[2021-02-14 17:17] LABS: Glucose Point of Care 150 mg/dl (65-105)
[2021-02-14 19:59] LABS: Vancomycin Trough 12.9 ug/mL (10.0-20.0)
[2021-02-14 21:06] VITALS: PULSE 74
[2021-02-14 22:00] VITALS: BP 121/50; PULSE 63; RESP 18; TEMP 36.6; O2SAT 100
[2021-02-15 01:07] LABS: Glucose Point of Care 125 mg/dl (65-105)
[2021-02-15 05:53] LABS: Basophils Percent Auto 0.8 % (0.2-1.2); Eosinophils Absolute Auto 0.1 K/mm3 (0-0.3); Eosinophils Percent Auto 3.5 % (0-4.4); Hematocrit 23.7 % (37.0-47.0); Hemoglobin 7.7 g/dL (12.0-15.0); Immature Granulocyte Absolute 0.04 K/mm3 (0.00-0.031); Lymphocytes Absolute Auto 0.43 K/mm3 (0.9-3.2); Lymphocytes Percent Auto 10.8 % (18.3-44.2); Mean Corpuscular HGB Conc 32.5 g/dl (32-36); Mean Corpuscular Hemoglobin 28.8 pg (26-34); Mean Corpuscular Volume 88.8 fl (80-100); Mean Platelet Volume 12.6 fl (7.4-10.4); Monocytes Absolute Auto 0.5 K/mm3 (0.1-0.6); Monocytes Percent Auto 11.6 % (2.6-8.5); Neutrophils Absolute Auto 2.9 K/mm3 (1.3-6.7); Neutrophils Percent Auto 72.3 % (45.5-73.1); Platelet Count Result 54 k/mm3 (150-375); Red Blood Count 2.67 M/mm3 (4.2-5.4); Red Cell Distribution Width 15.6 % (11.5-14.5)
[2021-02-15 06:00] VITALS: BP 116/55; PULSE 64; RESP 18; TEMP 36.4; O2SAT 99
[2021-02-15 06:13] LABS: Alanine Aminotransferase 16 U/L (4-35); Albumin Level 2.3 g/dL (3.5-5.1); Alkaline Phosphatase 137 U/L (38-126); Anion Gap 6 mmol/L (8-16); Aspartate Amino Transferase 30 U/L (14-36); Bilirubin,Total 0.5 mg/dL (0.2-1.3); Blood Urea Nitrogen 46 mg/dL (7-17); Calcium 8.1 mg/dL (8.4-10.2); Carbon Dioxide 23 mmol/L (22-30); Chloride 105 mmol/L (98-107); Estimated CRCL calculation 31 ml/min; Estimated Glomerular Filt Rate 34; Glucose 95 mg/dL (65-110); Potassium 4.7 mmol/L (3.4-5.0); Sodium 134 mmol/L (137-145)
[2021-02-15] MEDS: LEVOTHYROXINE SODIUM 150 MCG TABLET PO (07:28)
[2021-02-15] MEDS: LACTULOSE 20 GM/30 ML UDC PO ×3 (07:29→21:21)
[2021-02-15] MEDS: ASPIRIN 81 MG CHEWABLE TABLET PO (08:36)
[2021-02-15] MEDS: FERROUS SULFATE 324 MG TABLET PO ×2 (08:36→18:07)
[2021-02-15 08:39] VITALS: PULSE 64
[2021-02-15] MEDS: FLUTICASONE PROPIONATE 0.05% NA SPR 16 GM BTL (*BKC) 1 SPRAY NASAL (08:39)
[2021-02-15] MEDS: PROPRANOLOL HCL 10 MG TABLET PO ×2 (08:39→21:22)
[2021-02-15] MEDS: TOLNAFTATE 1% POWDER 45 GM BTL 1 APPLIC TOPICAL ×2 (08:42→21:21)
[2021-02-15] MEDS: TAMSULOSIN HCL 0.4 MG CAPSULE PO (08:43)
[2021-02-15] MEDS: ESCITALOPRAM OXALATE 5 MG TABLET PO (08:47)
[2021-02-15 09:07] LABS: Glucose Point of Care 131 mg/dl (65-105)
--- NOTE | 2021-02-15 10:49 | WPDINFPN2 ---
Progress Note: A&P Assessment and Plan (1) Bacteremia due to group B Streptococcus: Code(s): R78.81 - Bacteremia; B95.1 - Streptococcus, group B, as the cause of diseases classified elsewhere Status: Acute Assessment and Plan: GBS bacteremia with infection, biliary source REC Ancef through 02/19. No further investigation on my end. Call if Qs Subjective Date/time seen: 02/15/21 10:49 Objective Data Vital Signs Vital Signs: Vital Signs - 24 hr 02/14/21 14:00 02/14/21 21:06 02/14/21 22:00 Temperature 36.6 C 36.6 C Pulse Rate 63 74 63 Respiratory Rate 16 18 Blood Pressure 110/56 L 121/50 L Pulse Oximetry 99 100 02/15/21 06:00 02/15/21 08:39 Temperature 36.4 C Pulse Rate 64 64 Respiratory Rate 18 Blood Pressure 116/55 L Pulse Oximetry 99 Intake/Output Intake/Output: Intake & Output 02/12/21 02/13/21 02/14/21 02/15/21 23:59 23:59 23:59 23:59 Intake Total 0028 614 4134 830 Output Total 1050 75 200 900 Balance 251 643 3936 -70 Meds/Results Medications: Active Medications Generic Name Dose Route Start Last Admin Trade Name Freq PRN Reason Stop Dose Admin Aspirin 81 mg 02/11/21 09:00 02/15/21 08:36 Aspirin 81 Mg Chewable Tablet PO 81 mg DAILY SHERRILL Administration Dextrose 12.5 gm 02/11/21 07:03 Dextrose 50% 25 Gm/50 Ml Syringe IV PUSH PRN PRN Hypoglycemia Protocol Escitalopram Oxalate 5 mg 02/11/21 09:00 02/15/21 08:47 Escitalopram Oxalate 5 Mg Tablet PO 5 mg DAILY SHERRILL Administration Ferrous Sulfate 324 mg 02/11/21 08:00 02/15/21 08:36 Ferrous Sulfate 324 Mg Tablet PO 324 mg BIDWM SHERRILL Administration Fluticasone Propionate 1 spray 02/11/21 09:00 02/15/21 08:39 Fluticasone Propionate 0.05% Na Spr 16 Gm Btl (*Bkc) NASAL 1 spray DAILY SHERRILL Administration Furosemide 20 mg 02/11/21 09:00 02/12/21 09:07 Furosemide 20 Mg Tablet PO 20 mg DAILY SHERRILL Administration Glucagon 1 mg 02/11/21 07:03 Glucagon For Inj 1 Mg Vial IM PRN PRN Hypoglycemia Protocol Glucose 15 gm 02/11/21 07:03 Glucose Oral Gel 15 Gm Of Glucse In 37.5 Gm Tube PO PRN PRN Hypoglycemia Protocol Dextrose 1,000 mls @ 100 mls/hr 02/11/21 07:03 Dextrose 5% 1,000 Ml IVPB PRN PRN Hypoglycemia Protocol Cefazolin Sodium 1 gm in 50 mls @ 100 mls/hr 02/15/21 21:00 Ancef 1 Gm/D5w 50 Ml Pm IVPB 02/19/21 23:59 Q12HR [facility] Insulin Aspart 3 - 6 units 02/11/21 08:00 02/15/21 09:04 Insulin Aspart (*Bkc) 100 Units/Ml SUB-Q Not Given TIDWM [facility] Protocol Lactulose 20 gm 02/12/21 14:00 02/15/21 07:29 Lactulose 20 Gm/30 Ml Udc PO 20 gm Q8HR SHERRILL Administration Levothyroxine Sodium 150 mcg 02/11/21 06:30 02/15/21 07:28 Levothyroxine Sodium 150 Mcg Tablet PO 150 mcg DAILY@0630 [facility] Administration Miconazole Nitrate 1 applic 02/11/21 21:00 02/15/21 08:42 Miconazole 2% Antifungal Ointment 56 Gm TOPICAL 1 applic Q12HR [facility] Administration Ondansetron HCl 4 mg 02/11/21 01:39 Ondansetron Inj 4 Mg/2 Ml Vial IV PUSH Q4H PRN Nausea Oxymetazoline HCl 1 spray 02/12/21 11:18 Oxymetazoline Hcl 0.05% Terrell 15 Ml Btl (*Bkc) NASAL Q12HR PRN Congestion Propranolol HCl 10 mg 02/11/21 09:00 02/15/21 08:39 Propranolol Hcl 10 Mg Tablet PO 10 mg Q12H SHERRILL Administration Spironolactone 25 mg 02/11/21 09:00 02/12/21 09:07 Spironolactone 25 Mg Tablet PO 25 mg QAM SHERRILL Administration Tamsulosin HCl 0.4 mg 02/11/21 09:00 02/15/21 08:43 Tamsulosin Hcl 0.4 Mg Capsule PO 0.4 mg DAILY SHERRILL Administration Tolnaftate 1 applic 02/11/21 21:00 02/15/21 08:42 Tolnaftate 1% Powder 45 Gm Btl TOPICAL 1 applic Q12HR SHERRILL Administration Radiology Results: ITS Impressions Chest X-Ray 02/10/21 20:56 IMPRESSION: No acute cardiopulmonary findings. Head CT 02/11/21 07:49 IMPRESSION: 1. No acute
--- NOTE | 2021-02-15 12:32 | PM.IMPN ---
Progress Note: A&P Assessment and Plan (1) Abdominal ascites: Qualifiers: Ascites type: due to alcoholic hepatitis Qualified Code(s): K70.11 - Alcoholic hepatitis with ascites Code(s): R18.8 - Other ascites Status: Acute Assessment and Plan: 3 L of ascitic fluid was drained at the time of presentation in the emergency department. ascitic fluid neutrophil count is 199 Which is not suggestive of SBP. ceftriaxone discontinued ascitic fluid testing and culture.-> group B strep (2) Sepsis: Qualifiers: Sepsis acute organ dysfunction status: with acute organ dysfunction Sepsis type: sepsis due to unspecified organism Severe sepsis acute organ dysfunction type: encephalopathy Severe sepsis shock status: without septic shock Qualified Code(s): A41.9 - Sepsis, unspecified organism; R65.20 - Severe sepsis without septic shock; G93.40 - Encephalopathy, unspecified Code(s): A41.9 - Sepsis, unspecified organism Status: Acute Assessment and Plan: Blood culture is growing g positive group B stret Continue vancomycin PCN allergy -> seen by ID changed to Cefazolin to complete tx 02/19/21 (3) Metabolic encephalopathy: Code(s): G93.41 - Metabolic encephalopathy Status: Acute Assessment and Plan: Her mental status seems to be improving. almost at her baseline now. ammonia was within normal range. lactulose to have 2-3 bowel movements minimum. 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 Her ascites was tapped and treat L of ascitic fluid was taken off in the emergency department. lactulose to 3 times a day to have a minimum 2-3 bowel movements per day. Continue propranolol for secondary prophylaxis. thrombocytopenia is likely secondary to her cirrhosis. (7) Insulin dependent diabetes mellitus: Status: Acute Assessment and Plan: Accu-Cheks Insulin sliding scale Blood glucose at goal (8) Severe protein-calorie malnutrition: Code(s): E43 - Unspecified severe protein-calorie malnutrition Status: Acute Additional Plan Subjective Date/time seen: 02/15/21 12:32 patient lying in bed eating back a chips. She has no complaints at time my interview. We review her plan of care will contIV abx through 02/19 Exam Narrative: GEN: NAD, AAOx3, cooperative HEENT: NCAT, MMM, EOMI Neck: no JVD Heart: S1S2 RRR Lungs: CTA B/l Abd: soft, NT, ND, Ext: moves all, no cyanosis, no clubbing Neuro: improve mentation, moves all extremities equally, Cranial nerves intact, gait not assessed Psych: mood and affect congruent Objective Data Vital Signs Vital Signs: Vital Signs - 24 hr 02/14/21 21:06 02/14/21 22:00 02/15/21 06:00 Temperature 97.9 F 97.6 F Pulse Rate 74 63 64 Respiratory Rate 18 18 Blood Pressure 121/50 L 116/55 L Pulse Oximetry 100 99 02/15/21 08:39 02/15/21 13:00 Temperature 97.6 F Pulse Rate 64 74 Respiratory Rate 16 Blood Pressure 114/60 Pulse Oximetry 95 Intake/Output Intake/Output: Intake & Output 02/12/21 02/13/21 02/14/21 02/15/21 23:59 23:59 23:59 23:5
[2021-02-15 13:00] VITALS: BP 114/60; PULSE 74; RESP 16; TEMP 36.4; O2SAT 95
--- NOTE | 2021-02-15 14:00 | CONS_ITS ---
DATE OF CONSULTATION: 02/15/2021 REASON FOR CONSULTATION: Streptococcus bacteremia. HISTORY OF PRESENT ILLNESS: A 75-year-old female with known cirrhosis. She has, in the past, history of esophageal varices as well as chronic ascites requiring paracentesis for symptomatic relief. This was performed in November. She is also followed at [facility]. She was admitted to the hospital here on February 11 with generalized abdominal pain that she reports is more localized to the right upper quadrant. She also had nausea. She denies to me any fever, but record indicates she was febrile. Paracentesis was performed in the emergency room and she was admitted. Blood cultures are positive and she was started on vancomycin 2 days ago. Consultation requested. Her pain persists. No further vomiting. No other recent antibiotics. No immunosuppressants. She has had no skin ulcers, lower extremity erythema, shortness of breath, sputum production, or headache. ALLERGIES: PENICILLIN CAUSED HER ARMS AND LEGS TO SWELL WHEN SHE WAS EITHER A CHILD OR AN . NO OTHER REACTIONS. HABITS: No tobacco. No alcohol. PRESENT MEDICATIONS: As above. No systemic immunosuppressants. PAST MEDICAL HISTORY: Anxiety, ZUÑIGA, diabetes mellitus, hypothyroidism, and chronic anemia. She denies any prosthetic devices of any kind. SOCIAL HISTORY: correction resident. No family at the bedside. Two children. FAMILY HISTORY: Heart disease, lung cancer. REVIEW OF SYSTEMS: 14-point review otherwise negative except fatigue. PHYSICAL EXAMINATION: GENERAL: This is a chronically ill-appearing female, her actual age. No acute distress. VITAL SIGNS: On arrival showed a temperature of 39.4, since afebrile, 64, 18, 116/55. SKIN: Warm and dry. No generalized rash. She has multiple ecchymoses. She has some petechiae over the soft palate. NODES: No cervical adenopathy. EENT: The conjunctivae are normal. Oropharynx, oral mucosa, otherwise normal. NECK: No masses. No meningismus. LUNGS: Clear to auscultation. BACK: No CVAT. CARDIAC: Soft S1, S2. Regular rate and rhythm. No murmurs or rubs. Pulses are 1+ and equal. ABDOMEN: Obese and distended with ascites. No masses. Nontender. Normal bowel sounds. EXTREMITIES: Muscle wasting. No clubbing, cyanosis, edema. NEUROLOGIC: Awake, alert, oriented, appropriate. LABORATORY DATA: White count was normal on admission, now 4.0; hemoglobin 7.7; platelets are 54,000, similar to prior. She has hyponatremia. BUN 46, creatinine 1.5, similar to prior. Estimated GFR 34. Calcium level, alkaline phosphatase 137, albumin 2.3. Urinalysis, no evidence of infection. Peritoneal fluid, 60 red cells, 199 white cells, 6 PMNs, 57 lymphocytes, 6 monos, 4 mesothelial, 27 macrophages, glucose 163, protein under 3. Blood cultures 2/2 sets are group B strep. Gram stain of the ascites fluid, no organisms, no white cells. Repeat blood cultures, no growth 3 days. RADIOLOGY: Abdomen and pelvic CT, ascites, cirrhosis, portal hypertension, reactive adenopathy. Cystic mass, tail of the pancreas without change compared to 2 months prior. ASSESSMENT: 1. Group B strep bacteremia with infection due to biliary tract sores. Peritonitis is not present. Other sources also unlikely include endovascular including endocarditis, primary central nervous system, urine, pulmonary, bone joint. Cutaneous also not supported by exam. 2. Cirrhosis and nonalcoholic steatohepatitis, resulting in immunocompromise. 3. Severe protein-calorie malnutrition. RECOMMENDATIONS: 1. Given her renal insufficiency, we will dose her antibiotics accordingly. 2. Stop vancomycin, use Ancef to complete a 7-day course of antibiotics. 3. No oral therapy should be neede
[2021-02-15 14:26] LABS: Glucose Point of Care 135 mg/dl (65-105)
[2021-02-15 18:22] LABS: Glucose Point of Care 165 mg/dl (65-105)
[2021-02-15 20:00] VITALS: O2SAT 99
[2021-02-15 20:14] LABS: Albumin Peritoneal Fluid 0.7 g/dL
[2021-02-15 20:25] VITALS: BP 117/53; PULSE 58; RESP 18; TEMP 36.1; O2SAT 99
[2021-02-15 21:22] VITALS: PULSE 58
[2021-02-15 21:45] LABS: Glucose Point of Care 148 mg/dl (65-105)
[2021-02-16 05:03] LABS: Eosinophils Absolute Auto 0.2 K/mm3 (0-0.3); Eosinophils Percent Auto 3.7 % (0-4.4); Hematocrit 25.3 % (37.0-47.0); Hemoglobin 7.9 g/dL (12.0-15.0); Immature Granulocyte Absolute 0.05 K/mm3 (0.00-0.031); Immature Granulocyte Percent A 1.2 % (0-0.5); Immature Platelet Fraction Pct 3.9 % (0.9-11.2); Lymphocytes Absolute Auto 0.38 K/mm3 (0.9-3.2); Lymphocytes Percent Auto 9.5 % (18.3-44.2); Mean Corpuscular HGB Conc 31.2 g/dl (32-36); Mean Corpuscular Hemoglobin 28.3 pg (26-34); Mean Corpuscular Volume 90.7 fl (80-100); Mean Platelet Volume 13.5 fl (7.4-10.4); Monocytes Absolute Auto 0.6 K/mm3 (0.1-0.6); Monocytes Percent Auto 13.7 % (2.6-8.5); Neutrophils Absolute Auto 2.8 K/mm3 (1.3-6.7); Neutrophils Percent Auto 70.9 % (45.5-73.1); Platelet Count Result 46 k/mm3 (150-375); Red Blood Count 2.79 M/mm3 (4.2-5.4); Red Cell Distribution Width 15.2 % (11.5-14.5)
[2021-02-16 05:18] LABS: Alanine Aminotransferase 17 U/L (4-35); Albumin Level 2.2 g/dL (3.5-5.1); Alkaline Phosphatase 160 U/L (38-126); Anion Gap 5 mmol/L (8-16); Aspartate Amino Transferase 30 U/L (14-36); Bilirubin,Total 0.6 mg/dL (0.2-1.3); Blood Urea Nitrogen 45 mg/dL (7-17); Calcium 8.6 mg/dL (8.4-10.2); Carbon Dioxide 23 mmol/L (22-30); Chloride 106 mmol/L (98-107); Estimated CRCL calculation 33 ml/min; Estimated Glomerular Filt Rate 37; Glucose 100 mg/dL (65-110); Magnesium 2.4 mg/dL (1.6-2.3); Phosphorus 3.2 mg/dL (2.5-4.5); Potassium 4.9 mmol/L (3.4-5.0); Sodium 134 mmol/L (137-145)
[2021-02-16 05:25] LABS: Prealbumin 8.7 mg/dL (17.6-36.0)
[2021-02-16] MEDS: LACTULOSE 20 GM/30 ML UDC PO ×3 (05:25→22:25)
[2021-02-16] MEDS: LEVOTHYROXINE SODIUM 150 MCG TABLET PO (05:30)
[2021-02-16 05:31] VITALS: BP 123/48; PULSE 61; RESP 18; TEMP 36.2; O2SAT 100
[2021-02-16] MEDS: FERROUS SULFATE 324 MG TABLET PO ×2 (10:10→17:16)
[2021-02-16 10:12] VITALS: PULSE 64
[2021-02-16] MEDS: TAMSULOSIN HCL 0.4 MG CAPSULE PO (10:12)
[2021-02-16] MEDS: ASPIRIN 81 MG CHEWABLE TABLET PO (10:12)
[2021-02-16] MEDS: PROPRANOLOL HCL 10 MG TABLET PO ×2 (10:12→20:43)
[2021-02-16] MEDS: ESCITALOPRAM OXALATE 5 MG TABLET PO (10:14)
[2021-02-16] MEDS: FLUTICASONE PROPIONATE 0.05% NA SPR 16 GM BTL (*BKC) 1 SPRAY NASAL (10:14)
[2021-02-16 10:15] VITALS: RESP 18; O2SAT 100
[2021-02-16] MEDS: TOLNAFTATE 1% POWDER 45 GM BTL 1 APPLIC TOPICAL ×2 (10:15→20:43)
[2021-02-16 11:19] LABS: Glucose Point of Care 101 mg/dl (65-105)
[2021-02-16 12:00] VITALS: BP 113/53; PULSE 62; RESP 16; TEMP 36.6; O2SAT 99
[2021-02-16 14:08] LABS: Glucose Point of Care 134 mg/dl (65-105)
--- NOTE | 2021-02-16 14:18 | PM.IMPN ---
Progress Note: A&P Assessment and Plan (1) Abdominal ascites: Qualifiers: Ascites type: due to alcoholic hepatitis Qualified Code(s): K70.11 - Alcoholic hepatitis with ascites Code(s): R18.8 - Other ascites Status: Acute Assessment and Plan: 3 L of ascitic fluid was drained at the time of presentation in the emergency department. ascitic fluid neutrophil count is 199 Which is not suggestive of SBP. ceftriaxone discontinued ascitic fluid testing and culture.-> group B strep (2) Sepsis: Qualifiers: Sepsis acute organ dysfunction status: with acute organ dysfunction Sepsis type: sepsis due to unspecified organism Severe sepsis acute organ dysfunction type: encephalopathy Severe sepsis shock status: without septic shock Qualified Code(s): A41.9 - Sepsis, unspecified organism; R65.20 - Severe sepsis without septic shock; G93.40 - Encephalopathy, unspecified Code(s): A41.9 - Sepsis, unspecified organism Status: Acute Assessment and Plan: Blood culture is growing g positive group B stret Continue vancomycin PCN allergy -> seen by ID changed to Cefazolin to complete tx 02/19/21 (3) Metabolic encephalopathy: Code(s): G93.41 - Metabolic encephalopathy Status: Acute Assessment and Plan: Her mental status seems to be improving. almost at her baseline now. ammonia was within normal range. lactulose to have 2-3 bowel movements minimum. 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 Her ascites was tapped and treat L of ascitic fluid was taken off in the emergency department. lactulose to 3 times a day to have a minimum 2-3 bowel movements per day. Continue propranolol for secondary prophylaxis. thrombocytopenia is likely secondary to her cirrhosis. (7) Insulin dependent diabetes mellitus: Status: Acute Assessment and Plan: Accu-Cheks Insulin sliding scale Blood glucose at goal (8) Severe protein-calorie malnutrition: Code(s): E43 - Unspecified severe protein-calorie malnutrition Status: Acute Additional Plan cont supportive care c/s PT/OT Subjective Date/time seen: 02/16/21 14:18 patient doing okay seen by ID will need to complete IV antibiotic therapy through 02/19/2021 with [facility]. case resolution specialist consult to likely will need to complete IV antibiotic therapy and hospital prior to returning to her nursing facility. patient's primary complaint is her lack of mobility Exam Narrative: GEN: NAD, AAOx3, cooperative HEENT: NCAT, MMM, EOMI Neck: no JVD Abd: soft, distended, NT Ext: moves all, no cyanosis, no clubbing Neuro: improve mentation, moves all extremities equally, Cranial nerves intact, gait not assessed Psych: mood and affect congruent Objective Data Vital Signs Vital Signs: Vital Signs - 24 hr 02/15/21 20:00 02/15/21 20:25 02/15/21 21:22 Temperature 97 F L Pulse Rate 58 L 58 L Respiratory Rate 18 Blood Pressure 117/53 L Pulse Oximetry 99 99 02/16/21 05:31 02/16/21 10:12 02/16/21 10:15 Temperature 97.2 F L Pulse Rate 61 64 Respiratory Rate 18
[2021-02-16 17:38] LABS: Glucose Point of Care 111 mg/dl (65-105)
[2021-02-16 20:43] VITALS: PULSE 62
[2021-02-16 20:51] LABS: Glucose Point of Care 189 mg/dl (65-105)
[2021-02-16 21:10] VITALS: BP 119/66; PULSE 63; RESP 20; TEMP 36.2; O2SAT 98
[2021-02-17] VITALS (7 sets, daily range): BP systolic 104–124; BP diastolic 50–52; PULSE 57–74; RESP 16–21; TEMP 36.1–36.6; O2SAT 98–100
[2021-02-17 05:31] LABS: Basophils Percent Auto 0.7 % (0.2-1.2); Eosinophils Absolute Auto 0.1 K/mm3 (0-0.3); Eosinophils Percent Auto 3.4 % (0-4.4); Hemoglobin 7.9 g/dL (12.0-15.0); Immature Granulocyte Absolute 0.05 K/mm3 (0.00-0.031); Immature Granulocyte Percent A 1.2 % (0-0.5); Immature Platelet Fraction Pct 4.6 % (0.9-11.2); Lymphocytes Absolute Auto 0.39 K/mm3 (0.9-3.2); Lymphocytes Percent Auto 9.4 % (18.3-44.2); Mean Corpuscular HGB Conc 31.6 g/dl (32-36); Mean Corpuscular Hemoglobin 28.5 pg (26-34); Mean Corpuscular Volume 90.3 fl (80-100); Mean Platelet Volume 12.1 fl (7.4-10.4); Monocytes Absolute Auto 0.6 K/mm3 (0.1-0.6); Monocytes Percent Auto 14.4 % (2.6-8.5); Neutrophils Percent Auto 70.9 % (45.5-73.1); Platelet Count Result 45 k/mm3 (150-375); Red Blood Count 2.77 M/mm3 (4.2-5.4); Red Cell Distribution Width 15.1 % (11.5-14.5); White Blood Count 4.2 K/mm3 (4.5-10.0)
[2021-02-17 05:33] LABS: INR 1.5; Prothrombin Time 18.1 Seconds (11.1-14.7)
[2021-02-17 05:40] LABS: Alanine Aminotransferase 16 U/L (4-35); Albumin Level 2.3 g/dL (3.5-5.1); Alkaline Phosphatase 159 U/L (38-126); Anion Gap 6 mmol/L (8-16); Aspartate Amino Transferase 29 U/L (14-36); Bilirubin,Total 0.7 mg/dL (0.2-1.3); Blood Urea Nitrogen 41 mg/dL (7-17); Calcium 8.6 mg/dL (8.4-10.2); Carbon Dioxide 22 mmol/L (22-30); Chloride 106 mmol/L (98-107); Estimated CRCL calculation 35 ml/min; Estimated Glomerular Filt Rate 40; Glucose 119 mg/dL (65-110); Magnesium 2.4 mg/dL (1.6-2.3); Potassium 4.8 mmol/L (3.4-5.0); Sodium 134 mmol/L (137-145)
[2021-02-17] MEDS: LACTULOSE 20 GM/30 ML UDC PO ×2 (06:24→13:19)
[2021-02-17] MEDS: LEVOTHYROXINE SODIUM 150 MCG TABLET PO (06:24)
[2021-02-17 06:27] LABS: Anisocytosis 1+ (NORMAL); Hypochromasia 2+ (NORMAL); Platelet Estimate Decreased (Adequate)
[2021-02-17 06:28] LABS: Ovalocytes 2+ (NORMAL)
[2021-02-17 07:50] LABS: Glucose Point of Care 127 mg/dl (65-105)
[2021-02-17] MEDS: FLUTICASONE PROPIONATE 0.05% NA SPR 16 GM BTL (*BKC) 1 SPRAY NASAL (08:52)
[2021-02-17] MEDS: PROPRANOLOL HCL 10 MG TABLET PO ×2 (08:54→20:48)
[2021-02-17] MEDS: TOLNAFTATE 1% POWDER 45 GM BTL 1 APPLIC TOPICAL ×2 (08:54→20:48)
[2021-02-17] MEDS: ESCITALOPRAM OXALATE 5 MG TABLET PO (08:54)
[2021-02-17] MEDS: ASPIRIN 81 MG CHEWABLE TABLET PO (08:54)
[2021-02-17] MEDS: FERROUS SULFATE 324 MG TABLET PO ×2 (08:54→16:31)
[2021-02-17] MEDS: TAMSULOSIN HCL 0.4 MG CAPSULE PO (08:54)
[2021-02-17 11:52] LABS: Glucose Point of Care 122 mg/dl (65-105)
--- NOTE | 2021-02-17 15:09 | PM.IMPN ---
Progress Note: A&P Assessment and Plan (1) Abdominal ascites: Qualifiers: Ascites type: due to alcoholic hepatitis Qualified Code(s): K70.11 - Alcoholic hepatitis with ascites Code(s): R18.8 - Other ascites Status: Acute Assessment and Plan: 3 L of ascitic fluid was drained at the time of presentation in the emergency department. ascitic fluid neutrophil count is 199 Which is not suggestive of SBP. ceftriaxone discontinued ascitic fluid testing and culture.-> group B strep appears to be reaccumulating rapidly, previously was undergoing paracentesis q 3 weeks now appears to need procedure q 10-14 days US abd tomorrow for eval possible paracentesis while inpt prior to dc to prevent rapid readmission may need to be set up for programmed outpt paracentesis (2) Sepsis: Qualifiers: Sepsis acute organ dysfunction status: with acute organ dysfunction Sepsis type: sepsis due to unspecified organism Severe sepsis acute organ dysfunction type: encephalopathy Severe sepsis shock status: without septic shock Qualified Code(s): A41.9 - Sepsis, unspecified organism; R65.20 - Severe sepsis without septic shock; G93.40 - Encephalopathy, unspecified Code(s): A41.9 - Sepsis, unspecified organism Status: Acute Assessment and Plan: Blood culture is growing g positive group B stret source considered to be gallbladder Continue vancomycin PCN allergy -> seen by ID changed to Cefazolin to complete tx 02/19/21 (3) Metabolic encephalopathy: Code(s): G93.41 - Metabolic encephalopathy Status: Acute Assessment and Plan: Her mental status seems to be at baseline ammonia was within normal range. lactulose to have 2-3 bowel movements minimum. 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 Her ascites was tapped and treat L of ascitic fluid was taken off in the emergency department. lactulose to 3 times a day to have a minimum 2-3 bowel movements per day. Continue propranolol for secondary prophylaxis. thrombocytopenia is likely secondary to her cirrhosis. (7) Insulin dependent diabetes mellitus: Status: Acute Assessment and Plan: Accu-Cheks Insulin sliding scale Blood glucose at goal (8) Severe protein-calorie malnutrition: Code(s): E43 - Unspecified severe protein-calorie malnutrition Status: Acute Additional Plan cont supportive care c/s PT/OT Subjective Date/time seen: 02/17/21 12:09 Patient getting up to bedside chair with PT during my rounds today. Her abdomen is notably much larger than previous days. Patient denies shortness of breath but is noted to be slightly tachypneic until up in the seated position. Exam Narrative: GEN: NAD, AAOx3, cooperative HEENT: NCAT, MMM, EOMI Neck: no JVD Abd: soft, distended, NT, Fluid wave Ext: moves all, no cyanosis, no clubbing Neuro: improve mentation, moves all extremities equally, Cranial nerves intact, able to stand and transfer with minimal assist Psych: mood and affect congruent Objective Data Vital Signs Vital Signs: Vital Signs - 24
[2021-02-17 16:49] LABS: Glucose Point of Care 152 mg/dl (65-105)
[2021-02-17 21:13] LABS: Glucose Point of Care 148 mg/dl (65-105)
[2021-02-18 06:00] VITALS: BP 137/48; PULSE 55; RESP 20; TEMP 36.1; O2SAT 98
[2021-02-18] MEDS: LACTULOSE 20 GM/30 ML UDC PO (06:16)
[2021-02-18] MEDS: LEVOTHYROXINE SODIUM 150 MCG TABLET PO (06:16)
[2021-02-18 06:40] LABS: Eosinophils Absolute Auto 0.2 K/mm3 (0-0.3); Eosinophils Percent Auto 3.8 % (0-4.4); Hematocrit 25.4 % (37.0-47.0); Hemoglobin 7.9 g/dL (12.0-15.0); Immature Granulocyte Percent A 2.5 % (0-0.5); Immature Platelet Fraction Pct 5.2 % (0.9-11.2); Lymphocytes Absolute Auto 0.56 K/mm3 (0.9-3.2); Lymphocytes Percent Auto 14.1 % (18.3-44.2); Mean Corpuscular HGB Conc 31.1 g/dl (32-36); Mean Corpuscular Hemoglobin 28.3 pg (26-34); Mean Platelet Volume 13.3 fl (7.4-10.4); Monocytes Absolute Auto 0.5 K/mm3 (0.1-0.6); Monocytes Percent Auto 13.3 % (2.6-8.5); Neutrophils Absolute Auto 2.6 K/mm3 (1.3-6.7); Neutrophils Percent Auto 65.3 % (45.5-73.1); Platelet Count Result 46 k/mm3 (150-375); Red Blood Count 2.79 M/mm3 (4.2-5.4); Red Cell Distribution Width 15.3 % (11.5-14.5)
[2021-02-18 06:50] LABS: Alanine Aminotransferase 12 U/L (4-35); Albumin Level 2.2 g/dL (3.5-5.1); Alkaline Phosphatase 148 U/L (38-126); Anion Gap 0 mmol/L (8-16); Aspartate Amino Transferase 26 U/L (14-36); Bilirubin,Total 0.8 mg/dL (0.2-1.3); Blood Urea Nitrogen 37 mg/dL (7-17); Calcium 8.4 mg/dL (8.4-10.2); Carbon Dioxide 25 mmol/L (22-30); Chloride 109 mmol/L (98-107); Estimated CRCL calculation 38 ml/min; Estimated Glomerular Filt Rate 44; Glucose 87 mg/dL (65-110); Magnesium 2.6 mg/dL (1.6-2.3); Sodium 134 mmol/L (137-145)
[2021-02-18 07:58] LABS: Hypochromasia 1+ (NORMAL); Ovalocytes 1+ (NORMAL); Platelet Estimate Decreased (Adequate)
--- NOTE | 2021-02-18 09:39 | PCOTNOTE ---
Attempted to see patient for skilled OT session at this time. Treatment not completed d/t patient being taken for procedure until around lunchtime. Will attempt to see for a second time if possible this date.
[2021-02-18 10:11] LABS: Glucose Point of Care 92 mg/dl (65-105)
[2021-02-18 10:36] VITALS: PULSE 60
[2021-02-18] MEDS: ASPIRIN 81 MG CHEWABLE TABLET PO (10:36)
[2021-02-18] MEDS: TAMSULOSIN HCL 0.4 MG CAPSULE PO (10:36)
[2021-02-18] MEDS: PROPRANOLOL HCL 10 MG TABLET PO ×2 (10:36→21:04)
[2021-02-18] MEDS: FERROUS SULFATE 324 MG TABLET PO ×2 (10:36→17:09)
[2021-02-18] MEDS: TOLNAFTATE 1% POWDER 45 GM BTL 1 APPLIC TOPICAL ×2 (10:37→21:04)
[2021-02-18] MEDS: FLUTICASONE PROPIONATE 0.05% NA SPR 16 GM BTL (*BKC) 1 SPRAY NASAL (10:37)
[2021-02-18] MEDS: ESCITALOPRAM OXALATE 5 MG TABLET PO (11:19)
--- NOTE | 2021-02-18 12:04 | PM.IMPN ---
Progress Note: A&P Assessment and Plan (1) Abdominal ascites: Qualifiers: Ascites type: due to alcoholic hepatitis Qualified Code(s): K70.11 - Alcoholic hepatitis with ascites Code(s): R18.8 - Other ascites Status: Acute Assessment and Plan: Patient with known cirrhosis due to ZUÑIGA with recurrent ascites presents with encephalopathy, fever, ascites. Her ascites is reaccumulating rapidly. She notes she has paracenteses monthly at [facility] usually around 11L drained each time and they recently decided to increase frequency to twice monthly paracenteses. She had paracentesis in the ED 02/10 with 3L removed. Repeat paracentesis this morning with 5L off. She follows with Dr. Keanu Hardin, product development assistant at [facility]. Follow up appointment 02/25/21. (2) Sepsis: Qualifiers: Sepsis acute organ dysfunction status: with acute organ dysfunction Sepsis type: sepsis due to unspecified organism Severe sepsis acute organ dysfunction type: encephalopathy Severe sepsis shock status: without septic shock Qualified Code(s): A41.9 - Sepsis, unspecified organism; R65.20 - Severe sepsis without septic shock; G93.40 - Encephalopathy, unspecified Code(s): A41.9 - Sepsis, unspecified organism Status: Acute Assessment and Plan: With group B strep bacteremia, biliary source suspected. Ascitic fluid cultures with no growth, SBP not suspected. Appreciate infectious disease input. Was treated with IV vancomycin and switched to Cefazolin to complete tx 02/19/21. (3) Metabolic encephalopathy: Code(s): G93.41 - Metabolic encephalopathy Status: Acute Assessment and Plan: Resolved. May have been related to infection as above. Mental status appears at baseline now. Ammonia within normal range. Continue lactulose. (4) YUNG (acute kidney injury): Code(s): N17.9 - Acute kidney failure, unspecified Status: Acute Assessment and Plan: Cr improving. Resume Lasix and spironolactone. (5) Bacteremia due to group B Streptococcus: Code(s): R78.81 - Bacteremia; B95.1 - Streptococcus, group B, as the cause of diseases classified elsewhere Status: Acute Assessment and Plan: See above. 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 (7) Insulin dependent diabetes mellitus: Status: Acute Assessment and Plan: Stable. Continue to monitor with accu-cheks and adjust treatment as needed, cover with SSI. (8) Severe protein-calorie malnutrition: Code(s): E43 - Unspecified severe protein-calorie malnutrition Status: Chronic Assessment and Plan: Diet supplements ordered. Subjective Date/time seen: 02/18/21 12:05 Interval history: Ms. Veras is a 75yo F with history of cirrhosis with recurrent ascites due to ZUÑIGA who is seen in follow up for encephalopathy, abdominal ascites and bacteremia. Had 5L drained by paracentesis this morning. She is feeling better and notes her abdomen is softer. Denies abdominal pain, nausea or vomiting. Had some breakfast. Denies chest pain or shortness of breath. Review of Systems Review of Systems: All systems reviewed & are unremarkable except as noted in HPI and below Exam Narrative: General: Chronically ill-appearing female resting comfortably on her right side in bed in no acute distress. HEENT: Normocephalic, EOMI, oral mucosa moist. Cardiovascular: Rate and rhythm are regular. No notable murmur, rub, or gallop.
[2021-02-18 12:49] LABS: Glucose Point of Care 172 mg/dl (65-105)
[2021-02-18 16:00] VITALS: BP 130/52; PULSE 60; RESP 20; TEMP 36.3; O2SAT 99
[2021-02-18 16:38] LABS: Glucose Point of Care 149 mg/dl (65-105)
[2021-02-18 21:04] VITALS: PULSE 80
[2021-02-18 21:13] LABS: Glucose Point of Care 123 mg/dl (65-105)
[2021-02-18 22:00] VITALS: BP 119/44; PULSE 62; RESP 20; TEMP 36.1; O2SAT 98
[2021-02-18 23:12] VITALS: PULSE 62; RESP 20; O2SAT 98
[2021-02-19] VITALS: BP 112/43; PULSE 62; RESP 20; TEMP 36.7; O2SAT 99
[2021-02-19 06:03] LABS: Hematocrit 25.7 % (37.0-47.0); Immature Platelet Fraction Pct 4.1 % (0.9-11.2); Mean Corpuscular HGB Conc 31.1 g/dl (32-36); Mean Corpuscular Hemoglobin 28.3 pg (26-34); Mean Corpuscular Volume 90.8 fl (80-100); Mean Platelet Volume 13.4 fl (7.4-10.4); Platelet Count Result 52 k/mm3 (150-375); Red Blood Count 2.83 M/mm3 (4.2-5.4); Red Cell Distribution Width 15.3 % (11.5-14.5); White Blood Count 4.6 K/mm3 (4.5-10.0)
[2021-02-19] MEDS: LEVOTHYROXINE SODIUM 150 MCG TABLET PO (06:04)
[2021-02-19 06:15] LABS: Alanine Aminotransferase 11 U/L (4-35); Albumin Level 2.2 g/dL (3.5-5.1); Alkaline Phosphatase 150 U/L (38-126); Anion Gap 3 mmol/L (8-16); Aspartate Amino Transferase 26 U/L (14-36); Bilirubin,Total 0.7 mg/dL (0.2-1.3); Blood Urea Nitrogen 39 mg/dL (7-17); Calcium 8.2 mg/dL (8.4-10.2); Carbon Dioxide 23 mmol/L (22-30); Chloride 108 mmol/L (98-107); Estimated CRCL calculation 36 ml/min; Estimated Glomerular Filt Rate 40; Glucose 99 mg/dL (65-110); Magnesium 2.5 mg/dL (1.6-2.3); Potassium 4.8 mmol/L (3.4-5.0); Sodium 134 mmol/L (137-145)
[2021-02-19] MEDS: FERROUS SULFATE 324 MG TABLET PO ×2 (09:29→17:14)
[2021-02-19] MEDS: ASPIRIN 81 MG CHEWABLE TABLET PO (09:29)
[2021-02-19 09:30] VITALS: PULSE 60
[2021-02-19] MEDS: TOLNAFTATE 1% POWDER 45 GM BTL 1 APPLIC TOPICAL ×2 (09:30→21:19)
[2021-02-19] MEDS: SPIRONOLACTONE 25 MG TABLET PO (09:30)
[2021-02-19] MEDS: PROPRANOLOL HCL 10 MG TABLET PO ×2 (09:30→21:25)
[2021-02-19] MEDS: ESCITALOPRAM OXALATE 5 MG TABLET PO (09:30)
[2021-02-19] MEDS: TAMSULOSIN HCL 0.4 MG CAPSULE PO (09:30)
[2021-02-19] MEDS: FUROSEMIDE 20 MG TABLET PO (09:30)
[2021-02-19] MEDS: FLUTICASONE PROPIONATE 0.05% NA SPR 16 GM BTL (*BKC) 1 SPRAY NASAL (09:31)
[2021-02-19 09:50] VITALS: BP 102/56; PULSE 60; RESP 24; TEMP 36.5; O2SAT 100
--- NOTE | 2021-02-19 10:31 | PM.IMPN ---
Progress Note: A&P Assessment and Plan (1) Sepsis: Qualifiers: Sepsis acute organ dysfunction status: with acute organ dysfunction Sepsis type: sepsis due to unspecified organism Severe sepsis acute organ dysfunction type: encephalopathy Severe sepsis shock status: without septic shock Qualified Code(s): A41.9 - Sepsis, unspecified organism; R65.20 - Severe sepsis without septic shock; G93.40 - Encephalopathy, unspecified Code(s): A41.9 - Sepsis, unspecified organism Status: Acute Assessment and Plan: With group B strep bacteremia, biliary source suspected. Ascitic fluid cultures with no growth, SBP not suspected. Appreciate infectious disease input. Was treated with IV vancomycin and switched to Cefazolin to complete tx 02/19/21 at midnight. Will be discharged tomorrow morning. Last dose of IV abx is at midnight tonight. (2) Bacteremia due to group B Streptococcus: Code(s): R78.81 - Bacteremia; B95.1 - Streptococcus, group B, as the cause of diseases classified elsewhere Status: Acute Assessment and Plan: See above. (3) Abdominal ascites: Qualifiers: Ascites type: due to alcoholic hepatitis Qualified Code(s): K70.11 - Alcoholic hepatitis with ascites Code(s): R18.8 - Other ascites Status: Acute Assessment and Plan: Patient with known cirrhosis due to ZUÑIGA with recurrent ascites presents with encephalopathy, fever, ascites. Her ascites is reaccumulating rapidly. She notes she has paracenteses monthly at [facility] usually around 11L drained each time and they recently decided to increase frequency to twice monthly paracenteses. She had paracentesis in the ED 02/10 with 3L removed. Repeat paracentesis 02/18/21 with 5L off. She follows with Dr. Keanu Hardin, seamless tube mill operator at [facility]. Follow up appointment 02/25/21. (4) Metabolic encephalopathy: Code(s): G93.41 - Metabolic encephalopathy Status: Acute Assessment and Plan: Resolved. May have been related to infection as above. Mental status appears at baseline now. Ammonia within normal range. Continue lactulose. (5) YUNG (acute kidney injury): Code(s): N17.9 - Acute kidney failure, unspecified Status: Acute Assessment and Plan: Cr improving. Resume Lasix and spironolactone. 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 (7) Insulin dependent diabetes mellitus: Status: Acute Assessment and Plan: Stable. Continue to monitor with accu-cheks and adjust treatment as needed, cover with SSI. (8) Severe protein-calorie malnutrition: Code(s): E43 - Unspecified severe protein-calorie malnutrition Status: Chronic Assessment and Plan: Diet supplements ordered. Additional Plan Time Spent With Patient Time with patient: 25 - 35 minutes Subjective Date/time seen: 02/19/21 10:31 Interval history: Ms. Veras is a 75yo F with history of cirrhosis with recurrent ascites due to ZUÑIGA who is seen in follow up for encephalopathy, abdominal ascites and bacteremia. date of service 02/19/2021: the patient reports feeling well today other than some abdominal pain. She states her abdominal pain is chronic and she does feel better after having 5 L of fluid removed from her paracentesis the other day. She denies any fevers, chills, nausea, vomiting, chest pain, shortness of breath, calf pain, leg swelling, lightheadedness, dizziness or any other symptoms at this time
[2021-02-19 11:13] LABS: Glucose Point of Care 115 mg/dl (65-105)
[2021-02-19 11:50] LABS: Glucose Point of Care 139 mg/dl (65-105)
[2021-02-19] MEDS: LACTULOSE 20 GM/30 ML UDC PO ×2 (15:01→21:21)
[2021-02-19 15:45] VITALS: BP 119/54; PULSE 59; RESP 20; TEMP 36.3; O2SAT 100
[2021-02-19 18:16] LABS: Glucose Point of Care 138 mg/dl (65-105)
[2021-02-19 20:00] VITALS: BP 110/44; PULSE 64; RESP 18; TEMP 36.5; O2SAT 99
[2021-02-19 21:25] VITALS: PULSE 70
[2021-02-19 21:58] LABS: Glucose Point of Care 153 mg/dl (65-105)
[2021-02-20 06:00] VITALS: BP 109/51; PULSE 61; RESP 16; TEMP 36.4; O2SAT 99
[2021-02-20] MEDS: LACTULOSE 20 GM/30 ML UDC PO (06:22)
[2021-02-20] MEDS: LEVOTHYROXINE SODIUM 150 MCG TABLET PO (06:22)
[2021-02-20 09:38] VITALS: PULSE 62
[2021-02-20] MEDS: FLUTICASONE PROPIONATE 0.05% NA SPR 16 GM BTL (*BKC) 1 SPRAY NASAL (09:38)
[2021-02-20] MEDS: PROPRANOLOL HCL 10 MG TABLET PO (09:38)
[2021-02-20] MEDS: ASPIRIN 81 MG CHEWABLE TABLET PO (09:38)
[2021-02-20] MEDS: FERROUS SULFATE 324 MG TABLET PO (09:38)
[2021-02-20] MEDS: TAMSULOSIN HCL 0.4 MG CAPSULE PO (09:38)
[2021-02-20] MEDS: FUROSEMIDE 20 MG TABLET PO (09:38)
[2021-02-20] MEDS: ESCITALOPRAM OXALATE 5 MG TABLET PO (09:38)
[2021-02-20] MEDS: SPIRONOLACTONE 25 MG TABLET PO (09:38)
[2021-02-20] MEDS: TOLNAFTATE 1% POWDER 45 GM BTL 1 APPLIC TOPICAL (09:39)
[2021-02-20 09:50] LABS: Glucose Point of Care 160 mg/dl (65-105)
--- NOTE | 2021-02-20 10:18 | PCPTNOTE ---
Attempted to see patient for PT at this time, patient declined. Patient reported she does not want therapy at this time and that her sister is here to visit.
--- NOTE | 2021-02-20 10:25 | PM.DS ---
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 initial vitals showed blood pressure 116/57, heart rate 81, increased respiratory rate 24, temperature of a 103?, normal oxygenation on room air. Initial labs showed normal white count, elevated neutrophil count at 75% and elevated band cells,normocytic anemia with a hemoglobin 8.9, hematocrit 28, platelet 45,000, Na 135, Cr 1.30, BUN 35, elevated lactic acid, UA appeared to be a contamination. chest x-ray showed no acute cardiopulmonary findings. CT head showed no acute intracranial abnormality. CT abdomen showed liver cirrhosis with portal hypertension, large amount of ascites. the patient met criteria for sepsis and was started on IV antibiotics. Over the next few days she was found to have positive blood cultures growing group B Streptococcus. infectious disease was consulted and she was recommended to complete 7 days of Ancef then discharge afterwards. With the patient's IV antibiotic treatment she was feeling much better without any concerns. Due to her accumulation of ascites from her liver cirrhosis she did have 2 paracentesis which removed a total of 7 L. She does have an appointment with her [facility] on 02/25/2021 for further evaluation and monitoring. Usually at that time she receives her paracentesis and they can remove more fluid at that time. Return emergency room warnings given. Follow-up instructions given. Patient understands and agrees the plan. She is discharged in stable condition to her long term facility. (2) Bacteremia due to group B Streptococcus: Code(s): R78.81 - Bacteremia; B95.1 - Streptococcus, group B, as the cause of diseases classified elsewhere Status: Acute Assessment and Plan: See above. (3) Abdominal ascites: Qualifiers: Ascites type: due to alcoholic hepatitis Qualified Code(s): K70.11 - Alcoholic hepatitis with ascites Code(s): R18.8 - Other ascites Status: Acute Assessment and Plan: Her ascites is reaccumulating rapidly. She notes she has paracenteses monthly at [facility] usually around 11L drained each time and they recently decided to increase frequency to twice monthly paracenteses. She had paracentesis in the ED 02/10 with 3L removed. Repeat paracentesis 02/18/21 with 5L off. She follows with Dr. Keanu Hardin, [facility] at [facility]. Follow up appointment 02/25/21. (4) Metabolic encephalopathy: Code(s): G93.41 - Metabolic encephalopathy Status: Acute Assessment and Plan: Resolved. Most likely related to bacteremia infection as above. Mental status appears at baseline now. Ammonia within normal range. Continue lactulose. (5) YUNG (acute kidney injury): Code(s): N17.9 - Acute kidney failure, unspecified Status: Acute Assessment and Plan: Cr improving. Resume Lasix and spironolactone. 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
[2021-02-20 12:55] LABS: Glucose Point of Care 155 mg/dl (65-105)
== END 2021-02-20 14:21 | DRG 871 ==
LOC: ANHED 02-11 02:09 → ANHIMU 02-11 07:17 → ANH2MED 02-12 14:22 → ANHIMU 02-22 12:03
PROVIDERS: Emergency Medicine; Hospitalist; Internal Medicine Critical Care Medicine; Physician Assistant; Admitting Provider Internal Medicine; Emergency Provider General Practice; PCP Family Medicine; Visit Provider Physician Assistant
DX: A40.1 Sepsis due to streptococcus, group B (principal); G93.41 Metabolic encephalopathy; E43 Unspecified severe protein-calorie malnutrition; N17.9 Acute kidney failure, unspecified; R18.8 Other ascites; D84.81 Immunodeficiency due to conditions classified elsewhere; R65.20 Severe sepsis without septic shock; K74.69 Other cirrhosis of liver; K75.81 Nonalcoholic steatohepatitis (NASH); E11.9 Type 2 diabetes mellitus without complications; E03.9 Hypothyroidism, unspecified; Z66 Do not resuscitate; Z88.0 Allergy status to penicillin; Z79.4 Long term (current) use of insulin; Z79.82 Long term (current) use of aspirin; Z79.899 Other long term (current) drug therapy
CPT/HCPCS: 36415; 49082; 49083; 51701; 70450; 71045; 74177; 80048; 80053; 80202; 81001; 82042; 82140; 82945; 82948; 83605; 83735; 84100; 84134; 84157; 85025; 85027; 85055; 85610; 85730; 87040; 87070; 87075; 87147; 87186; 87205; 89051; 93005; 93306; 96361; 96365; 96375; 97110; 97161; 97165; 97530; 97535; 99285; A9270; J0131; J0690; J0696; J3370; J7030; P9047; Q9967

== ENCOUNTER 2021-11-13 13:08 | Inpatient (IN) | payer MEDICARE, BC, SELFPAY ==
--- NOTE | ~2021-11-13 | XR_ITS ---
EXAMINATION: XR surgery orthopedic DATE: 11/15/2021 16:20 INDICATION: Left hip intratrochanteric fracture for intramedullary dona fixation TECHNIQUE: 4 fluoroscopic images of the proximal left femur were obtained during procedure performed by the clinical. Radiologist was not present for the imaging or procedure. The amount of fluoroscopy time used during this procedure was 14.3 minutes. COMPARISON: CT dated 11/13/2021 FINDINGS: Interval reduction and internal fixation of the previous noted comminuted intratrochanteric fracture of the proximal left femur. The fracture is fixed with antegrade intramedullary dona with femoral neck dynamic compression screw and distal interlocking screw fixation. Alignment post fixation appears ne ar-anatomic. Mild osteoarthritis at the left hip. IMPRESSION: 1. Near-anatomic alignment post internal fixation of a comminuted intratrochanteric fracture of the p roximal left femur. See procedure note for further detail. Reviewed, dictated and finalized at location A. IMPRESSION: 1. Near-anatomic alignment post internal fixation of a comminuted intratrochant mamta fracture of the proximal left femur. See procedure note for further detail .
--- NOTE | ~2021-11-13 | XR_ITS ---
XR chest 1V DATE: 11/13/2021 13:39 INDICATION: Left comminuted intertrochanteric hip fracture TECHNIQUE: AP chest COMPARISON: 02/10/2021 portable AP chest FINDINGS: There is normal heart size. Aortic calcification and mild tortuosity. Mild bilateral lower lung infiltrate and/or atelectasis is suggested. The lungs otherwise appear preston r. No pleural effusion or pulmonary vascular congestion or pneumothorax. Multiple bilateral old healed rib fracture deformities. Osteopenia. IMPRESSION: Mild bilateral lower lung infiltrate and/or atelectasis is suggested Multiple old bilateral healed rib fracture deformities Reviewed, dictated and finalized at location A. IMPRESSION: Mild bilateral lower lung infiltrate and/or atelectasis is suggeste d Multiple old bilateral healed rib fracture deformities
--- NOTE | ~2021-11-13 | CT_ITS ---
EXAMINATION: CT pelvis wo con DATE: 11/13/2021 19:56 INDICATION: Left thigh pain TECHNIQUE: Computed tomography (CT) of the pelvis was performed without intravenous contrast. The dos e-length product (DLP) was 442.31 mGy-cm. Automated exposure control and iterative reconstruction val hnique were employed. COMPARISON: 02/10/2021 FINDINGS: There is a large volume of ascites. There is a comminuted intertrochanteric fracture of the left femur. There is inflammation of the proximal left thigh musculature but the fat planes appear t o be maintained. No definite intramuscular hematoma is identified. IMPRESSION: 1. Comminuted intertrochanteric fracture of the left femur. No definite intramuscular hematoma identi fied. Reviewed, dictated and finalized at location F. IMPRESSION: 1. Comminuted intertrochanteric fracture of the left femur. No definite intramu scular hematoma identified.
--- NOTE | ~2021-11-13 | CT_ITS ---
EXAMINATION: CT brain wo con INDICATION: Head injury COMPARISON: 02/10/2021 TECHNIQUE: Standard unenhanced head CT. The dose-length product (DLP) was 681.00 mGy-cm. The mA was a djusted according to patient size. Iterative reconstruction technique was employed. FINDINGS: There is no acute intraparenchymal hemorrhage. No evidence of mass lesion. No evidence of a cute infarction. There is mild periventricular and subcortical hypodensity probably related to small vessel ischemic disease. There is mild prominence of the sulci and ventricles related to cerebral atr ophy. Intracranial calcified cerebral atherosclerosis is noted. There are no extra-axial collections. There is no mass effect or midline shift. Changes in the globes are likely from ocular lens surgery. There is complete opacification of the left sphenoid sinus and partial opacification of the left eth moidal air cells. IMPRESSION: 1. No acute intracranial abnormality. 2. Age related findings. 3. Sinus disease. Reviewed, dictated and finalized at location F.
--- NOTE | ~2021-11-13 | XR_ITS ---
XR hip LT 2V w AP pelvis DATE: 11/13/2021 13:38 INDICATION: Fall off of component. TECHNIQUE: AP pelvis. AP and crosstable lateral views of left hip. COMPARISON: 11/16/2020 left hip FINDINGS: Diffuse osteopenia. No pelvic fracture or bone destruction. The pubic symphysis and sacroiliac joints are intact. There is abdominal aortic and bilateral iliac and femoral arterial calcification. Severe osteoarthritis at the right hip joint. Mild left hip osteoarthritis. There is a comminuted intertrochanteric fracture of the proximal left femur, with minimal displacemen t. IMPRESSION: Comminuted intertrochanteric fracture of the left femur Reviewed, dictated and finalized at location A.
--- NOTE | ~2021-11-13 | US_ITS ---
EXAMINATION: US paracentesis abd w/image DATE: 11/22/2021 16:50 INDICATION: Ascites. TECHNIQUE: The procedure and its risks, benefits, and alternatives were discussed with the patient. P otential risks discussed included bleeding and infection. The skin was prepped and draped in sterile fashion. 1% lidocaine was used for local anesthesia. Under ultrasound guidance, a 5 Fr catheter with trochar was advanced into the ascites in the left lower quadrant. Fluid was aspirated. The catheter w as removed, and a dressing was applied. There were no immediate complications. FINDINGS: Ultrasound images demonstrate ascites and the catheter within the fluid. IMPRESSION: 1. Successful ultrasound-guided paracentesis yielding 5000 mL of clear, yellow fluid. Reviewed, dictated and finalized at location A.
[2021-11-13 13:05] VITALS: BP 145/73; RESP 16; O2SAT 100
--- NOTE | 2021-11-13 13:19 | ECG_ITS ---
Measurements Intervals [place] Rate: 67 P: [place]: 0 QRS: 18 QRSD: 94 T: 31 QT: 408 QTc: 431 Interpretive Statements PROBABLE NORMAL SINUS RHYTHM BASELINE ARTIFACT PRESENT, NO CHANGE COMPARED TO PRIOR TRACING Electronically Signed On 11-13-2021 20:15:55 CDT by Audra Arteaga M.D.
[2021-11-13 13:28] LABS: Basophils Absolute Auto 0.1 K/mm3 (0.0-0.1); Basophils Percent Auto 0.4 % (0.2-1.2); Eosinophils Absolute Auto 0.2 K/mm3 (0-0.3); Eosinophils Percent Auto 1.3 % (0-4.4); Hematocrit 34.5 % (37.0-47.0); Hemoglobin 11.3 g/dL (12.0-15.0); Immature Granulocyte Absolute 0.09 K/mm3 (0.00-0.031); Immature Granulocyte Percent A 0.7 % (0-0.5); Lymphocytes Absolute Auto 0.69 K/mm3 (0.9-3.2); Lymphocytes Percent Auto 5.3 % (18.3-44.2); Mean Corpuscular HGB Conc 32.8 g/dl (32-36); Mean Corpuscular Hemoglobin 29.7 pg (26-34); Mean Corpuscular Volume 90.8 fl (80-100); Mean Platelet Volume 12.8 fl (7.4-10.4); Monocytes Absolute Auto 0.7 K/mm3 (0.1-0.6); Neutrophils Absolute Auto 11.4 K/mm3 (1.3-6.7); Neutrophils Percent Auto 87.3 % (45.5-73.1); Platelet Count Result 87 k/mm3 (150-375); Red Cell Distribution Width 15.2 % (11.5-14.5); White Blood Count 13.1 K/mm3 (4.5-10.0)
[2021-11-13 13:42] LABS: Anion Gap 5 mmol/L (8-16); Blood Urea Nitrogen 27 mg/dL (7-17); Carbon Dioxide 23 mmol/L (22-30); Chloride 104 mmol/L (98-107); Estimated CRCL calculation 31 ml/min; Estimated Glomerular Filt Rate 37; Glucose 157 mg/dL (65-110); Potassium 4.8 mmol/L (3.4-5.0); Sodium 132 mmol/L (137-145)
--- NOTE | 2021-11-13 14:02 | ED.FALL ---
HPI - Fall General Chief Complaint: Fall Stated Complaint: Hip Injury Time Seen by Provider: 11/13/21 13:11 Source: patient Mode of arrival: ambulatory Limitations: no limitations History of Present Illness HPI Narrative: Patient is a 76-year-old female complaining of left hip pain, 9 out of 10, dull, started prior to arrival after she fell in the bathroom. Patient states that she has been having diarrhea for the past couple days, and eating well, felt weak, when she leaned forward she fell on her left side. Patient states that she might of hit her head not sure. Patient denies any neck, chest, abdomen, back or any other extremity pain/injury. Related Data Home Medications Medication Instructions Recorded Confirmed escitalopram oxalate 5 mg PO DAILY 11/16/20 02/11/21 ferrous sulfate 325 mg PO BIDWM 11/16/20 02/11/21 fluticasone propionate 1 spray INTRANASAL DAILY 11/16/20 02/11/21 furosemide 40 mg PO DAILY 11/16/20 02/11/21 insulin lispro [Humalog U-100 1 sliding scale dose SUBCUT ACHS 11/16/20 02/11/21 Insulin] lactulose 20 g PO TID 11/16/20 02/11/21 levothyroxine 150 mcg PO DAILY 11/16/20 02/11/21 melatonin 10 mg PO HS 11/16/20 02/11/21 nystatin 1 applic TOPICAL BID 11/16/20 02/11/21 propranolol 10 mg PO Q12H 11/16/20 02/11/21 aspirin 81 mg PO DAILY 12/11/20 02/11/21 Fleet Enema 118 ml RECTAL DIRECTED 02/10/21 02/11/21 bisacodyl 5 mg RECTAL DIRECTED 02/10/21 02/11/21 magnesium hydroxide [Milk of 30 ml PO DIRECTED 02/10/21 02/11/21 Magnesia] spironolactone 25 mg PO DAILY 02/10/21 02/11/21 Allergies Allergy/AdvReac Type Severity Reaction Status Date / Time Penicillins Allergy Unknown Verified 02/10/21 21:27 sertraline [From Zoloft] Allergy Unknown Verified 02/10/21 21:27 Review of Systems Review of Systems: All systems reviewed & are unremarkable except as noted in HPI and below Constitutional: Constitutional: Denies body ache(s), Denies chills, Denies excessive sweating, Denies fatigue, Denies fever(s), Denies headache(s), Denies lethargy, Denies malaise, Denies weakness and Denies weight loss Eyes: Eyes: Denies blurry vision, Denies change in vision and Denies loss of vision ENT: Denies dizziness, Denies ear discharge, Denies headache(s), Denies lip swelling, Denies epistaxis, Denies nasal congestion, Denies neck pain, Denies throat swelling and Denies tongue swelling Cardiovascular: Cardiovascular: Denies chest pain, Denies chest pain at rest, Denies chest pain with activity, Denies diaphoresis, Denies rapid heart rate, Denies edema, Denies irregular heart rhythm, Denies lightheadedness, Denies palpitations, Denies dyspnea and Denies dyspnea on exertion Respiratory: Respiratory: Denies chest congestion, Denies cough, Denies hemoptysis, Denies dyspnea and Denies dyspnea on exertion Gastrointestinal: Gastrointestinal: Denies abdominal pain, Denies melena, Denies hematochezia, Denies diarrhea, Denies nausea, Denies vomiting and Denies hematemesis Musculoskeletal: Musculoskeletal: Denies neck pain and Denies numbness Neurologic: Denies Abnormal speech present, Denies abnormal gait, Denies confusion, Denies dizziness, Denies headache(s), Denies focal weakness, Denies loss of vision, Denies numbness, Denies Other visual disturbances, Denies Sensory deficit (Neuro) and Denies weakness Psychiatric: Psychiatric: Denies confusion, Denies depression, Denies auditory hallucinations, Denies homicidal ideation and Denies suicidal ideation Endocrine: Endocrine: Denies cold intolerance, Denies excessive sweating, Denies fatigue, Denies heat intolerance and Denies palpitations Hematologic/Lymphatic: Hematologic/Lymphatic: Denies easy bleeding and Denies easy bruising Allergic/Immunologic: Allergic/Immunologic: Denies lip swelling, Denies throat swelling and Denies tongue swelling PMFSH Past Medical History Medical History Anxiety Chronic anemia Cirrhosis of liver
[2021-11-13] MEDS: LACTATED RINGERS 1,000 ML 90 ML IV CONT (14:09)
[2021-11-13 14:10] LABS: INR 1.6; Prothrombin Time 18.6 Seconds (11.1-14.7)
[2021-11-13] MEDS: ONDANSETRON INJ 4 MG/2 ML VIAL IV PUSH ×2 (14:10→21:15)
[2021-11-13] MEDS: HYDROmorphone HCL INJ (*CRX) 1 MG/ML SYR 0.5 MG IV PUSH ×3 (14:10→21:15)
[2021-11-13 14:12] LABS: Partial Thromboplastin Time 38.5 SECONDS (22.3-36.8)
[2021-11-13 15:30] LABS: Add Urine Microscopic? YES; Appearance Urine Cloudy (Clear); Bacteria Urine Trace /hpf; Bilirubin Urine Negative (Negative); Blood Urine Negative (Negative); Color Urine Yellow (Yellow); Glucose Urine UA Negative (Negative); Hyaline Casts Urine 15-19 /lpf; Ketones Urine Negative (Negative); Leukocyte Esterase Ur 3+ LEU/UL (Negative); Mucus Urine Rare /lpf; Nitrate Urine Negative (Negative); Protein Urine Negative (Negative); Squamous Epithelial Cell Urine Rare /hpf (Few); Urobilinogen Urine Negative mg/dL (<2.0); WBC Urine 31-50 /hpf
[2021-11-13 16:34] VITALS: BP 128/69; PULSE 72; RESP 16; O2SAT 98
--- NOTE | 2021-11-13 16:55 | PC.NURSE ---
This patient, Angeles Veras, was admitted to 2 Medical Room 241-. Patient/family oriented to hospital policies and general routines including ID bracelet, bed and alarms, visiting hours, pain management, procedures, bathroom and other care routines, personal items, smoking policy, room service/diet, and visiting hours. Information on how to activate the Rapid Response Team has been discussed. Patient/Family are encouraged to report perceived risks to care and to ask questions if they do not understand what they are told or what they should do.
[2021-11-13] MEDS: LACTATED RINGERS 1,000 ML 75 ML IV CONT (17:27)
[2021-11-13 19:26] LABS: Hematocrit 29.9 % (37.0-47.0); Hemoglobin 9.7 g/dL (12.0-15.0)
[2021-11-13 19:35] VITALS: BP 118/59; PULSE 78; RESP 16; TEMP 36; O2SAT 98
--- NOTE | 2021-11-13 19:47 | PM.IMHP ---
H&P: HPI History of Present Illness Date/Time: Patient requires inpatient monitoring with expected length of stay to exceed 2 midnights for management of care. 11/13/21 19:47 Chief Complaint: Left hip pain Narrative: Ms. Veras is a 76-year-old female who presented to the emergency room with complaints of left hip pain. Patient states she was sitting on the toilet and she fell forward and then began having left hip pain. Patient states she did not lose consciousness. Patient denies any lightheadedness, dizziness, syncopal, or near syncopal episodes. Patient denies any chest pain, palpitations or shortness of breath. Patient states that she just fell forward. Patient states she has been having multiple episodes of diarrhea for the last few days. Patient states she is not sure if she has been on antibiotics recently or not. Patient is complaining of intense pain to her left hip and thigh area. Patient does have a known history of ZUÑIGA and she receives monthly paracentesis. Patient is followed at [facility] for her ZUÑIGA. Patient also has a known history of diabetes mellitus, hypothyroidism, hypertension, and recent diagnosis of shingles. Review of Systems Review of Systems: A 12 point review of systems was completed patient all pertinent positive and negative per HPI the remainder are unremarkable. [facility] Past Medical History Medical History Anxiety Chronic anemia Cirrhosis of liver Hypothyroid Insulin dependent diabetes mellitus Nonalcoholic steatohepatitis (ZUÑIGA) Surgical History Surgical History No history of previous surgery Family History Family History Father Lung cancer Heart disease Mother No problems noted. Social History Social History Social History: Ms. Veras currently resides at [facility]. She has 2 adult sons and designates her son, Emanuel, as her surrogate decision maker. She would like to be a DNR. Her PCP is Dr. Dmitriy Jama. Smoking status: Never smoker Second hand tobacco smoke exposure: No Alcohol intake: never Substance use: never Substance use type: does not use Gender identity (if verbalized by the patient): Female Spiritual care concerns: No Meds Home Medications and Allergies Home Medications Medication Instructions Recorded Confirmed Type ferrous sulfate 325 mg PO BIDWM 11/16/20 11/13/21 History fluticasone propionate 1 spray INTRANASAL DAILY 11/16/20 11/13/21 History furosemide 60 mg PO DAILY 11/16/20 11/13/21 History insulin lispro [Humalog U-100 1 sliding scale dose SUBCUT ACHS 11/16/20 11/13/21 History Insulin] lactulose 20 g PO TID 11/16/20 11/13/21 History levothyroxine 150 mcg PO DAILY 11/16/20 11/13/21 History nystatin 1 applic TOPICAL BID 11/16/20 11/13/21 History propranolol 10 mg PO Q12H 11/16/20 11/13/21 History tamsulosin 0.4 mg PO DAILY #30 cap 11/19/20 11/13/21 Rx Fleet Enema 118 ml RECTAL DIRECTED PRN 02/10/21 11/13/21 History acetaminophen 500 mg PO Q6H PRN 11/13/21 11/13/21 History bisacodyl 10 mg RECTAL DAILY PRN 11/13/21 11/13/21 History cholecalciferol (vitamin D3) 125 mcg PO DAILY 11/13/21 11/13/21 History lidocaine 1 patch TOPICAL BID 11/13/21 11/13/21 History magnesium citrate [Citroma] 300 ml PO DAILY PRN 11/13/21 11/13/21 History magnesium hydroxide [Medi-Milk Of 30 ml PO HS PRN 11/13/21 11/13/21 History Magnesia] melatonin 6 mg PO HS 11/13/21 11/13/21 History oxycodone 5 mg PO Q6H 11/13/21 11/13/21 History spironolactone 100 mg PO DAILY 11/13/21 11/13/21 History valacyclovir 1,000 mg PO TID 11/13/21 11/13/21 History Allergies Allergy/AdvReac Type Severity Reaction Status Date / Time Penicillins Allergy Unknown Verified 02/10/21 21:27 sertraline [From Zolof
[2021-11-13] MEDS: SODIUM CHLORIDE 0.9% IV 250 ML 30 ML IV CONT (20:39)
[2021-11-13 20:42] LABS: Glucose Point of Care 168 mg/dl (65-105)
[2021-11-13 22:10] VITALS: BP 106/50; PULSE 66; RESP 20; TEMP 36.5; O2SAT 97
[2021-11-13 22:30] VITALS: BP 111/54; PULSE 66; RESP 20; TEMP 36.4; O2SAT 95
[2021-11-13 23:30] VITALS: BP 153/48; PULSE 73; RESP 18; TEMP 36.1; O2SAT 97
[2021-11-14] VITALS (15 sets, daily range): BP systolic 109–149; BP diastolic 43–66; PULSE 64–73; RESP 16–20; TEMP 35.8–37.3; O2SAT 95–100; BMI 24.5
[2021-11-14 02:11] LABS: Hemoglobin 8.1 g/dL (12.0-15.0)
[2021-11-14 07:24] LABS: Basophils Percent Auto 0.4 % (0.2-1.2); Eosinophils Absolute Auto 0.1 K/mm3 (0-0.3); Eosinophils Percent Auto 1.3 % (0-4.4); Hematocrit 22.7 % (37.0-47.0); Hemoglobin 7.4 g/dL (12.0-15.0); Immature Granulocyte Absolute 0.04 K/mm3 (0.00-0.031); Immature Granulocyte Percent A 0.7 % (0-0.5); Lymphocytes Absolute Auto 0.55 K/mm3 (0.9-3.2); Lymphocytes Percent Auto 9.9 % (18.3-44.2); Mean Corpuscular HGB Conc 32.6 g/dl (32-36); Mean Corpuscular Hemoglobin 29.6 pg (26-34); Mean Corpuscular Volume 90.8 fl (80-100); Mean Platelet Volume 12.8 fl (7.4-10.4); Monocytes Absolute Auto 0.5 K/mm3 (0.1-0.6); Monocytes Percent Auto 8.8 % (2.6-8.5); Neutrophils Absolute Auto 4.4 K/mm3 (1.3-6.7); Neutrophils Percent Auto 78.9 % (45.5-73.1); Platelet Count Result 43 k/mm3 (150-375); Red Cell Distribution Width 15.1 % (11.5-14.5); White Blood Count 5.6 K/mm3 (4.5-10.0)
[2021-11-14 07:34] LABS: Anion Gap 6 mmol/L (8-16); Blood Urea Nitrogen 29 mg/dL (7-17); Calcium 8.7 mg/dL (8.4-10.2); Carbon Dioxide 23 mmol/L (22-30); Chloride 105 mmol/L (98-107); Estimated CRCL calculation 27 ml/min; Estimated Glomerular Filt Rate 37; Glucose 108 mg/dL (65-110); Magnesium 1.5 mg/dL (1.6-2.3); Potassium 4.2 mmol/L (3.4-5.0); Sodium 134 mmol/L (137-145)
[2021-11-14 07:34] LABS: Glucose Point of Care 102 mg/dl (65-105)
[2021-11-14] MEDS: HYDROmorphone HCL INJ (*CRX) 1 MG/ML SYR 0.5 MG IV PUSH (08:18)
[2021-11-14 08:28] LABS: INR 1.7; Prothrombin Time 19.2 Seconds (11.1-14.7)
[2021-11-14 08:29] LABS: Partial Thromboplastin Time 39.3 SECONDS (22.3-36.8)
[2021-11-14] MEDS: FUROSEMIDE 20 MG TABLET 60 MG PO (08:55)
[2021-11-14] MEDS: PROPRANOLOL HCL 10 MG TABLET PO ×2 (08:55→20:26)
[2021-11-14] MEDS: SPIRONOLACTONE 50 MG TABLET 100 MG PO (08:56)
[2021-11-14] MEDS: FERROUS SULFATE 324 MG TABLET PO ×2 (08:56→16:30)
[2021-11-14] MEDS: valACYclovir HCL 500 MG TABLET 1000 MG PO (08:56)
[2021-11-14] MEDS: TAMSULOSIN HCL 0.4 MG CAPSULE PO (08:56)
[2021-11-14] MEDS: LEVOTHYROXINE SODIUM 150 MCG TABLET PO (08:56)
[2021-11-14] MEDS: CHOLECALCIFEROL 1,000 UNITS TABLET 5000 UNITS PO (08:56)
[2021-11-14] MEDS: LACTULOSE 20 GM/30 ML UDC PO ×3 (08:57→16:30)
[2021-11-14] MEDS: FLUTICASONE PROPIONATE 0.05% NA SPR 16 GM BTL (*BKC) 1 SPRAY NASAL (08:57)
[2021-11-14] MEDS: MAGNESIUM SULF 2 GM/WATER 50ML 2 GM/50 ML BAG IVPB (09:19)
--- NOTE | 2021-11-14 09:25 | PC.NURSE ---
Placed call to Xin ZHAO about 914, because patients pain is not being managed with current medications. Xin stated she would take a look at it and try to prescribe something to help
[2021-11-14] MEDS: MORPHINE SULFATE (*CRX) 2 MG/ML INJ IV PUSH ×4 (10:06→22:06)
[2021-11-14 11:19] LABS: Glucose Point of Care 149 mg/dl (65-105)
[2021-11-14 12:12] LABS: Hematocrit 21.6 % (37.0-47.0)
--- NOTE | 2021-11-14 12:49 | P.PNIM_ITS ---
Progress Note: A&P Assessment and Plan (1) Fall: Code(s): W19.XXXA - Unspecified fall, initial encounter Status: Acute Assessment and Plan: Patient fell forward off the toilet and hit her head and then fell onto her left hip * Implement fall precautions * Head CT completed and showed no acute intracranial findings * She will need PT/OT postoperatively (2) Closed intertrochanteric fracture of left femur: Qualifiers: Encounter type: initial encounter Fracture alignment: displaced Qualified Code(s): S72.142A - Displaced intertrochanteric fracture of left femur, initial encounter for closed fracture Code(s): S72.142A - Displaced intertrochanteric fracture of left femur, initial encounter for closed fracture Status: Acute Assessment and Plan: Secondary to fall as above * Hip/pelvis x-ray showed comminuted intertrochanteric fracture of the left femur * Appreciate orthopedic surgery consultation * Plan for surgical repair tomorrow * Supportive care. Analgesics available as needed. 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 Monitor platelets * Continue lactulose (4) Hematoma of thigh: Code(s): S70.10XA - Contusion of unspecified thigh, initial encounter Status: Acute Assessment and Plan: Pelvis CT showed no definite hematoma * No hematoma appreciated on my exam, however was limited due to pain (5) Urinary tract infection: Code(s): N39.0 - Urinary tract infection, site not specified Status: Acute Assessment and Plan: UA abnormal on presentation * Patient asymptomatic * Urine culture is pending * Continue Rocephin while awaiting results (6) Anemia: Code(s): D64.9 - Anemia, unspecified Status: Acute Assessment and Plan: Patient reports history of chronic anemia, looks to be due to iron deficiency * Hgb declined to 7.0 this afternoon * May be due to acute fracture vs possible hematoma * Check stool occult blood test * Transfuse 1 unit pRBC and monitor H&H 1 hour following transfusion (7) Shingles: Code(s): B02.9 - Zoster without complications Status: Acute Assessment and Plan: Patient reports onset of shingles 10 days ago * She completed 7 days of valacyclovir * Discontinue valacyclovir which was resumed on presentation from home meds - she finished this course and is no longer taking (8) Hypomagnesemia: Code(s): E83.42 - Hypomagnesemia Status: Acute Assessment and Plan: Mag is 1.5 * Administer 2 g IV magnesium sulfate Subjective Date/time seen: 11/14/21 12:49 Interval history: Date of service: 11/14/2021 Angeles Veras is a 76 year old female with a history of ZUÑIGA, hypothyroidism, hypertension, type 2 diabetes mellitus, and recent diagnosis of shingles who is seen in follow up for left hip fracture and anemia. She is having severe left hip pain today that she rates as 10/10 and describes as excruciating. She had no improvement with analgesics. She is not able to move the left extremity at all. She denies nausea or vomiting. Denies abdominal pain, bloating. Denies any episodes of bleeding includin
--- NOTE | 2021-11-14 12:49 | PM.IMPN ---
Progress Note: A&P Assessment and Plan (1) Fall: Code(s): W19.XXXA - Unspecified fall, initial encounter Status: Acute Assessment and Plan: Patient fell forward off the toilet and hit her head and then fell onto her left hip Implement fall precautions Head CT completed and showed no acute intracranial findings She will need PT/OT postoperatively (2) Closed intertrochanteric fracture of left femur: Qualifiers: Encounter type: initial encounter Fracture alignment: displaced Qualified Code(s): S72.142A - Displaced intertrochanteric fracture of left femur, initial encounter for closed fracture Code(s): S72.142A - Displaced intertrochanteric fracture of left femur, initial encounter for closed fracture Status: Acute Assessment and Plan: Secondary to fall as above Hip/pelvis x-ray showed comminuted intertrochanteric fracture of the left femur Appreciate orthopedic surgery consultation Plan for surgical repair tomorrow Supportive care. Analgesics available as needed. 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 She has monthly paracentesis Due for paracentesis next 11/28/2021 Thrombocytopenia secondary to cirrhosis. Monitor platelets Continue lactulose (4) Hematoma of thigh: Code(s): S70.10XA - Contusion of unspecified thigh, initial encounter Status: Acute Assessment and Plan: Pelvis CT showed no definite hematoma No hematoma appreciated on my exam, however was limited due to pain (5) Urinary tract infection: Code(s): N39.0 - Urinary tract infection, site not specified Status: Acute Assessment and Plan: UA abnormal on presentation Patient asymptomatic Urine culture is pending Continue Rocephin while awaiting results (6) Anemia: Code(s): D64.9 - Anemia, unspecified Status: Acute Assessment and Plan: Patient reports history of chronic anemia, looks to be due to iron deficiency Hgb declined to 7.0 this afternoon May be due to acute fracture vs possible hematoma Check stool occult blood test Transfuse 1 unit pRBC and monitor H&H 1 hour following transfusion (7) Shingles: Code(s): B02.9 - Zoster without complications Status: Acute Assessment and Plan: Patient reports onset of shingles 10 days ago She completed 7 days of valacyclovir Discontinue valacyclovir which was resumed on presentation from home meds - she finished this course and is no longer taking (8) Hypomagnesemia: Code(s): E83.42 - Hypomagnesemia Status: Acute Assessment and Plan: Mag is 1.5 Administer 2 g IV magnesium sulfate Subjective Date/time seen: 11/14/21 12:49 Interval history: Date of service: 11/14/2021 Angeles Veras is a 76 year old female with a history of ZUÑIGA, hypothyroidism, hypertension, type 2 diabetes mellitus, and recent diagnosis of shingles who is seen in follow up for left hip fracture and anemia. She is having severe left hip pain today that she rates as 10/10 and describes as excruciating. She had no improvement with analgesics. She is not able to move the left extremity at all. She denies nausea or vomiting. Denies abdominal pain, bloating. Denies any episodes of bleeding including hematuria, hematochezia, melena, hematemesis, hemoptysis. She does endorse headache in the left parietal region. States she was previously feeling confused but cannot elaborate on this and she is A&Ox4. She has no issues with her Banuelos catheter which was initiated on presentation. Denies any recent dysuria, retention, or other urinary symptoms. States she was diagnosed with shingles around 10 days ago. She has no pain and states her rash has dried up.
--- NOTE | 2021-11-14 13:28 | PC.NURSE ---
On 11/14/21, the student, [Kylee Escobar], provided care and completed [facility] documentation on this patient. I have reviewed the student's documentation and agree with the findings.
[2021-11-14] MEDS: SODIUM CHLORIDE 0.9% IV 250 ML 30 ML IV CONT (15:00)
[2021-11-14 15:21] LABS: Immunochemical Fecal Occult Bl Positive (N)
[2021-11-14 15:22] LABS: IFOB Positive Control Positive
--- NOTE | 2021-11-14 16:07 | PM.CNOR ---
Assessment and Plan Assessment and plan (1) Closed intertrochanteric fracture of left femur: Qualifiers: Encounter type: initial encounter Fracture alignment: displaced Qualified Code(s): S72.142A - Displaced intertrochanteric fracture of left femur, initial encounter for closed fracture <Tori Robbins, REPAIR MANAGER - Last Filed: 11/14/21 16:21> Code(s): S72.142A - Displaced intertrochanteric fracture of left femur, initial encounter for closed fracture <Tori Robbins, REPAIR MANAGER - Last Filed: 11/14/21 16:21> Status: Acute <Tori Robbins, REPAIR MANAGER - Last Filed: 11/14/21 16:21> Assessment and Plan: History, exam radiographs reviewed with the patient. CT scan reviewed. Radiograph and CT scan reveal a comminuted intertrochanteric fracture of the left femur. Discussed condition, nature, etiology and course of natural history. Conservative and operative treatment options reviewed as well as the risks and benefits of each. Discussed nonoperative and operative treatment options with the patient. The patients questions were answered. The patient desires operative treatment. Risks of surgery including but not limited to neurovascular damage, wound complications, blood clot, pulmonary embolus, stroke, myocardial infarction, anesthetic risks up to and including were reviewed. Continued pain and possible dysfunction were explained. No guarantees were offered. The patient understands and wishes to proceed. Plan: Left IT Nail with DHS by Dr. Ryan STANFORD at midnight. Bedrest. Pain control. Addition of [place] for Pain 4-6. Skin protection. Obtain consent. <Tori Robbins, REPAIR MANAGER - Last Filed: 11/14/21 16:21> (2) Anemia: Code(s): D64.9 - Anemia, unspecified <Tori Robbins, REPAIR MANAGER - Last Filed: 11/14/21 16:21> Status: Acute <Tori Robbins, REPAIR MANAGER - Last Filed: 11/14/21 16:21> Assessment and Plan: Hemoglobin of 7. Patient currently receiving 1 unit of packed red blood cells. Blood product ordered by Medicine team. Questionable hematoma however CT scan does not show appreciable hematoma. No obvious hematoma on exam. We will continue to monitor preoperatively. <ZANA Hassan - Last Filed: 11/14/21 16:21> Additional Plan Reviewed history, radiographic interpretation and physical exam as well as labs and vitals with attending physician and consult the surgeon, Dr. Nadia Davis. No further recommendations at this time. We will plan for surgical intervention tomorrow. Patient NPO at midnight. <ZANA Hassan - Last Filed: 11/14/21 16:21> History of Present Illness HPI Consult date: 11/14/21 <ZANA Hassan - Last Filed: 11/14/21 16:21> 11/15/21 <Sandoval Davis MD - Last Filed: 11/15/21 07:15> Consult reason: fracture (Left Hip Fracture) and other <ZANA Hassan - Last Filed: 11/14/21 16:21> Chief complaint: L Hip Fracture, Liver Cirrhosis, Diabetes <ZANA Hassan - Last Filed: 11/14/21 16:21> Narrative: 76-year-old female admitted to [facility] after a fall at her [facility]. Per patient report, patient had several days of diarrhea and was having difficulty getting to and from the bathroom. Patient typically utilizes a wheelchair for mobility. She rarely walks but does work with PT at times. She reports that she was sitting on the toilet and she fell off the toilet hitting her head. She does not remember losing consciousness or any syncopal event. She was complaining of left hip pain. She was transported via EMS to the emergency room. Radiographs of the left hip revealed a comminuted intertrochanteric fracture of the left femur. CT scan that reveals a comminuted intertrochanteric fracture of the left femur with no definite intramuscular hematoma. Orthopedic surgery consult requested by emergency room physician. Patient admitted for further evaluation and surgical treatment. <ZANA Hassan -
[2021-11-14 16:34] LABS: Glucose Point of Care 134 mg/dl (65-105)
[2021-11-14] MEDS: LACTATED RINGERS 1,000 ML 75 ML IV CONT (18:18)
[2021-11-14 19:19] LABS: Toxigenic C. Diff POSITIVE (NEGATIVE)
--- NOTE | 2021-11-14 19:34 | PM.EVENT ---
Event Note Event Note Event Note: Received a call from the patient's nurse with positive C difficile by PCR. Chart briefly reviewed. Patient endorses multiple episodes of diarrhea over the last several days. Patient started oral vancomycin. She is on lactulose 20 t.i.d. for ZUÑIGA thus if she continues to have diarrhea this should be held. Will defer to daytime provider.
[2021-11-14 19:47] LABS: Hematocrit 26.1 % (37.0-47.0); Hemoglobin 8.8 g/dL (12.0-15.0)
[2021-11-14 20:41] LABS: Glucose Point of Care 170 mg/dl (65-105)
[2021-11-14] MEDS: VANCOMYCIN ORAL 125 MG/2.5 ML SYRUP PO (23:56)
[2021-11-15] VITALS (14 sets, daily range): BP systolic 101–141; BP diastolic 42–60; PULSE 55–65; RESP 15–20; TEMP 35.6–36.9; O2SAT 95–100
[2021-11-15 00:32] LABS: Hematocrit 25.3 % (37.0-47.0); Hemoglobin 8.4 g/dL (12.0-15.0)
[2021-11-15] MEDS: HYDROmorphone HCL INJ (*CRX) 1 MG/ML SYR IV PUSH ×2 (00:38→08:55)
[2021-11-15 06:01] LABS: Hematocrit 24.5 % (37.0-47.0); Hemoglobin 8.3 g/dL (12.0-15.0); Mean Corpuscular HGB Conc 33.9 g/dl (32-36); Mean Corpuscular Hemoglobin 30.3 pg (26-34); Mean Corpuscular Volume 89.4 fl (80-100); Mean Platelet Volume 13.3 fl (7.4-10.4); Platelet Count Result 49 k/mm3 (150-375); Red Blood Count 2.74 M/mm3 (4.2-5.4); Red Cell Distribution Width 15.1 % (11.5-14.5)
[2021-11-15] MEDS: VANCOMYCIN ORAL 125 MG/2.5 ML SYRUP PO ×2 (06:09→18:05)
[2021-11-15] MEDS: LACTATED RINGERS 1,000 ML 75 ML IV CONT (06:09)
[2021-11-15] MEDS: LEVOTHYROXINE SODIUM 150 MCG TABLET PO (06:10)
[2021-11-15 06:12] LABS: Alanine Aminotransferase 12 U/L (4-35); Albumin Level 2.5 g/dL (3.5-5.1); Alkaline Phosphatase 113 U/L (38-126); Anion Gap 2 mmol/L (8-16); Aspartate Amino Transferase 23 U/L (14-36); Bilirubin,Total 1.7 mg/dL (0.2-1.3); Blood Urea Nitrogen 27 mg/dL (7-17); Calcium 8.9 mg/dL (8.4-10.2); Carbon Dioxide 26 mmol/L (22-30); Chloride 105 mmol/L (98-107); Estimated CRCL calculation 27 ml/min; Estimated Glomerular Filt Rate 37; Glucose 143 mg/dL (65-110); Potassium 4.1 mmol/L (3.4-5.0); Sodium 133 mmol/L (137-145)
[2021-11-15 06:24] LABS: Hemoglobin A1C 5.4 % (<5.7)
--- NOTE | 2021-11-15 07:15 | WPDHPUPDATE1 ---
History and Physical Update Update Date/Time: 11/15/21 07:15 History and Physical has been reviewed, including an updated exam of the patient. There are NO changes in the patient's condition. Risks, benefits, and alternatives have been discussed and questions answered. Patient agrees to proceed with procedure.
--- NOTE | 2021-11-15 07:20 | WPDGICN ---
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 She is well managed by Dr. Hardin at [facility]. She has slight ascites but not tense, not needing treatment with paracentesis at this time. We will maintain her spironolactone 100 mg per day and furosemide (2) Closed intertrochanteric fracture of left femur: Qualifiers: Encounter type: initial encounter Fracture alignment: displaced Qualified Code(s): S72.142A - Displaced intertrochanteric fracture of left femur, initial encounter for closed fracture Code(s): S72.142A - Displaced intertrochanteric fracture of left femur, initial encounter for closed fracture Status: Acute Assessment and Plan: She will be going to surgery this afternoon. (3) Anemia: Code(s): D64.9 - Anemia, unspecified Status: Acute Assessment and Plan: this appears to be chronic. She states that she has always been anemic. There is no sign of an acute drop in her counts. No need for endoscopy or colonoscopy at this time (4) C. difficile colitis: Code(s): A04.72 - Enterocolitis due to Clostridium difficile, not specified as recurrent Status: Acute Assessment and Plan: she has been started on vancomycin. GI Consult Note Consult date/time: 11/15/21 07:20 HPI: Angeles Veras is a 76 year old female Was admitted after she fell when using the bathroom at skilled nursing. She states that she has had loose stools the past several days. Actually she was found last night to be positive for C difficile. She does not think that she has been on any antibiotics recently. I had been asked to see her because of a Hemoccult-positive stool. Her blood counts are low but she states that this is normal for her. Her hemoglobin is 8.0 last February was when she was admitted 2 days ago. She has not seen blood in her stools. She had been diagnosed with cirrhosis thought to be due to fatty liver, with the diagnosis being made about 3 years ago. She is under the care of at [facility]. She sees him every 3 months. She has a paracentesis about once a month because she does reaccumulated ascitic fluid. She is on propranolol for portal hypertension and lactulose syrup to control her ammonia levels. Review of Systems Review of Systems: All systems reviewed & are unremarkable except as noted in HPI and below PMFSH Past Medical History Medical History Anxiety Chronic anemia Cirrhosis of liver Hypothyroid Insulin dependent diabetes mellitus Nonalcoholic steatohepatitis (ZUÑIGA) Surgical History Surgical History No history of previous surgery Family History Family History Father Lung cancer Heart disease Mother No problems noted. Social History Social History Social History: Ms. Veras currently resides at [facility]. She has 2 adult sons and designates her son, Emanuel, as her surrogate decision maker. She would like to be a DNR. Her PCP is Dr. Dmitriy Jama. Smoking status: Never smoker Second hand tobacco smoke exposure: No Alcohol intake: never Substance use: never Substance use type: does not use Gender identity (if verbalized by the patient): Female Spiritual care concerns: No Meds Home Medications and Allergies Home Medications Medication Instructions Recorded Confirmed Type ferrous sulfate 325 mg PO BIDWM 11/16/20 11/13/21 History fluticasone propionate 1 spray INTRANASAL DAILY 11/16/20 11/13/21 History furosemide
[2021-11-15 07:35] LABS: Glucose Point of Care 146 mg/dl (65-105)
[2021-11-15] MEDS: FLUTICASONE PROPIONATE 0.05% NA SPR 16 GM BTL (*BKC) 1 SPRAY NASAL (08:38)
[2021-11-15] MEDS: TAMSULOSIN HCL 0.4 MG CAPSULE PO (08:39)
[2021-11-15] MEDS: FUROSEMIDE 20 MG TABLET 60 MG PO (08:39)
[2021-11-15] MEDS: CHOLECALCIFEROL 1,000 UNITS TABLET 5000 UNITS PO (08:39)
[2021-11-15] MEDS: SPIRONOLACTONE 50 MG TABLET 100 MG PO (08:39)
[2021-11-15] MEDS: PROPRANOLOL HCL 10 MG TABLET PO ×2 (08:39→21:01)
[2021-11-15] MEDS: ACETAMINOPHEN 325 MG TABLET 650 MG PO ×2 (08:55→18:05)
--- NOTE | 2021-11-15 09:01 | WPDHPUPDATE1 ---
History and Physical Update Update Date/Time: 11/15/21 09:01 History and Physical has been reviewed, including an updated exam of the patient. There are NO changes in the patient's condition. Risks, benefits, and alternatives have been discussed and questions answered. Patient agrees to proceed with procedure.
--- NOTE | 2021-11-15 09:11 | P.PNIM_ITS ---
Progress Note: A&P Assessment and Plan (1) Fall: Code(s): W19.XXXA - Unspecified fall, initial encounter Status: Acute Assessment and Plan: Patient fell forward off the toilet and hit her head and then fell onto her left hip * Fall precautions * Head CT completed and showed no acute intracranial findings * She will need PT/OT postoperatively (2) Closed intertrochanteric fracture of left femur: Qualifiers: Encounter type: initial encounter Fracture alignment: displaced Qualified Code(s): S72.142A - Displaced intertrochanteric fracture of left femur, initial encounter for closed fracture Code(s): S72.142A - Displaced intertrochanteric fracture of left femur, initial encounter for closed fracture Status: Acute Assessment and Plan: Secondary to fall as above * Hip/pelvis x-ray showed comminuted intertrochanteric fracture of the left femur * Appreciate orthopedic surgery consultation * Plan for surgical repair this afternoon * Supportive care. Analgesics available as needed. 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 Monitor platelets * Hold lactulose given diarrhea (4) Urinary tract infection: Code(s): N39.0 - Urinary tract infection, site not specified Status: Acute Assessment and Plan: UA abnormal on presentation * Patient asymptomatic * Urine culture with preliminary growth of gram negative bacilli * Continue Rocephin while awaiting final cultures (5) Anemia: Code(s): D64.9 - Anemia, unspecified Status: Acute Assessment and Plan: Patient reports history of chronic anemia, looks to be due to iron deficiency * Hgb declined to 7.0 on 11/14 and she was transfused 1 unit pRBC * Stool occult blood test positive * Appreciate GI consult * Hemoglobin 8.3 today (6) Hypomagnesemia: Code(s): E83.42 - Hypomagnesemia Status: Acute Assessment and Plan: Likely due to diarrhea * Resolved with supplementation * Mag 1.8 today (7) Hematoma of thigh: Code(s): S70.10XA - Contusion of unspecified thigh, initial encounter Status: Ruled-out Assessment and Plan: Ruled out. Pelvis CT showed no definite hematoma * No hematoma appreciated on my exam (8) C. difficile colitis: Code(s): A04.72 - Enterocolitis due to Clostridium difficile, not specified as recurrent Status: Acute Assessment and Plan: Patient complained of diarrhea for 3 days. C diff PCR is positive * Continue oral vancomycin * Will hold lactulose as she is having frequent bowel movements. Resume when diarrhea has improved. Monitor mental status. * Patient is afebrile, without leukocytosis. * Reports stools are becoming less frequent. Subjective Date/time seen: 11/15/21 09:11 Interval history: Date of service: 11/15/2021 Angeles Veras is a 76 year old female with a history of ZUÑIGA, hypothyroidism, hypertension, type 2 diabetes mellitus, and recent diagnosis of shingles who is seen in follow up for left hip fracture and anemia. She complains of pain in her left hip today. She first states it is 5/10 then states ?no 9, no its a 10. She cannot mo
--- NOTE | 2021-11-15 09:11 | PM.IMPN ---
Progress Note: A&P Assessment and Plan (1) Fall: Code(s): W19.XXXA - Unspecified fall, initial encounter Status: Acute Assessment and Plan: Patient fell forward off the toilet and hit her head and then fell onto her left hip Fall precautions Head CT completed and showed no acute intracranial findings She will need PT/OT postoperatively (2) Closed intertrochanteric fracture of left femur: Qualifiers: Encounter type: initial encounter Fracture alignment: displaced Qualified Code(s): S72.142A - Displaced intertrochanteric fracture of left femur, initial encounter for closed fracture Code(s): S72.142A - Displaced intertrochanteric fracture of left femur, initial encounter for closed fracture Status: Acute Assessment and Plan: Secondary to fall as above Hip/pelvis x-ray showed comminuted intertrochanteric fracture of the left femur Appreciate orthopedic surgery consultation Plan for surgical repair this afternoon Supportive care. Analgesics available as needed. 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 Monitor platelets Hold lactulose given diarrhea (4) Urinary tract infection: Code(s): N39.0 - Urinary tract infection, site not specified Status: Acute Assessment and Plan: UA abnormal on presentation Patient asymptomatic Urine culture with preliminary growth of gram negative bacilli Continue Rocephin while awaiting final cultures (5) Anemia: Code(s): D64.9 - Anemia, unspecified Status: Acute Assessment and Plan: Patient reports history of chronic anemia, looks to be due to iron deficiency Hgb declined to 7.0 on 11/14 and she was transfused 1 unit pRBC Stool occult blood test positive Appreciate GI consult Hemoglobin 8.3 today (6) Hypomagnesemia: Code(s): E83.42 - Hypomagnesemia Status: Acute Assessment and Plan: Likely due to diarrhea Resolved with supplementation Mag 1.8 today (7) Hematoma of thigh: Code(s): S70.10XA - Contusion of unspecified thigh, initial encounter Status: Ruled-out Assessment and Plan: Ruled out. Pelvis CT showed no definite hematoma No hematoma appreciated on my exam (8) C. difficile colitis: Code(s): A04.72 - Enterocolitis due to Clostridium difficile, not specified as recurrent Status: Acute Assessment and Plan: Patient complained of diarrhea for 3 days. C diff PCR is positive Continue oral vancomycin Will hold lactulose as she is having frequent bowel movements. Resume when diarrhea has improved. Monitor mental status. Patient is afebrile, without leukocytosis. Reports stools are becoming less frequent. Subjective Date/time seen: 11/15/21 09:11 Interval history: Date of service: 11/15/2021 Angeles Veras is a 76 year old female with a history of ZUÑIGA, hypothyroidism, hypertension, type 2 diabetes mellitus, and recent diagnosis of shingles who is seen in follow up for left hip fracture and anemia. She complains of pain in her left hip today. She first states it is 5/10 then states ?no 9, no its a 10. She cannot move the leg at all. She will have surgery today for this. She does endorse diarrhea. She states she has had 1 loose stool today. She thinks it is mostly watery. She denies any foul odor. She denies abdominal pain, cramping, bloating, nausea, vomiting, fever, or chills. She has not noticed any blood in her stool. Denies bleeding. She was able to tolerate her diet yesterday but it is NPO at this time. Denies shortness of breath or chest pain. No issues w
[2021-11-15 09:36] LABS: Magnesium 1.8 mg/dL (1.6-2.3)
[2021-11-15 11:19] LABS: Glucose Point of Care 129 mg/dl (65-105)
[2021-11-15] MEDS: LACTATED RINGERS 1,000 ML 30 ML IV CONT (12:15)
[2021-11-15] MEDS: TRANEXAMIC ACID 1,000MG/ISO100 1,000 MG/100 ML BAG 200 MG IVPB (12:22)
--- NOTE | 2021-11-15 13:22 | PC.NURSE ---
On 11/15/21, the student, [Wei Rodriguez], provided care and completed [facility] documentation on this patient. I have reviewed the student's documentation and agree with the findings.
--- NOTE | 2021-11-15 13:24 | WPDANESEPPF ---
Anes - Initial Pre Proc Eval Procedure: Operation Date: 11/15/21 13:30 Proposed Procedures p Left Hip Intramedullary Jose with Dynamic Hip Screw - Sandoval Davis MD Date/Time: 11/15/21 13:24 Surgeon: Xin Will PA-C Pre Op Diagnosis: L Hip Fracture, Liver Cirrhosis, Diabetes Patient Data Age: 76 Gender: F Height: 1.63 m Weight: 65 kg Last Vital Signs Temp 36.1 C L 11/15/21 05:52 Pulse 64 11/15/21 05:52 Resp 16 11/15/21 05:52 BP 135/51 L 11/15/21 05:52 Pulse Ox 96 11/15/21 05:52 Allergies Allergy/AdvReac Type Severity Reaction Status Date / Time Penicillins Allergy Severe Swelling Verified 11/15/21 11:58 sertraline [From Zoloft] Allergy Unknown Verified 11/15/21 11:59 Home Medications Medication Instructions Recorded Confirmed Type ferrous sulfate 325 mg PO BIDWM 11/16/20 11/13/21 History fluticasone propionate 1 spray INTRANASAL DAILY 11/16/20 11/13/21 History furosemide 60 mg PO DAILY 11/16/20 11/13/21 History insulin lispro [Humalog U-100 1 sliding scale dose SUBCUT ACHS 11/16/20 11/13/21 History Insulin] lactulose 20 g PO TID 11/16/20 11/13/21 History levothyroxine 150 mcg PO DAILY 11/16/20 11/13/21 History nystatin 1 applic TOPICAL BID 11/16/20 11/13/21 History propranolol 10 mg PO Q12H 11/16/20 11/13/21 History tamsulosin 0.4 mg PO DAILY #30 cap 11/19/20 11/13/21 Rx Fleet Enema 118 ml RECTAL DIRECTED PRN 02/10/21 11/13/21 History acetaminophen 500 mg PO Q6H PRN 11/13/21 11/13/21 History bisacodyl 10 mg RECTAL DAILY PRN 11/13/21 11/13/21 History cholecalciferol (vitamin D3) 125 mcg PO DAILY 11/13/21 11/13/21 History lidocaine 1 patch TOPICAL BID 11/13/21 11/13/21 History magnesium citrate [Citroma] 300 ml PO DAILY PRN 11/13/21 11/13/21 History magnesium hydroxide [Medi-Milk Of 30 ml PO HS PRN 11/13/21 11/13/21 History Magnesia] melatonin 6 mg PO HS 11/13/21 11/13/21 History oxycodone 5 mg PO Q6H 11/13/21 11/13/21 History spironolactone 100 mg PO DAILY 11/13/21 11/13/21 History valacyclovir 1,000 mg PO TID 11/13/21 11/13/21 History Laboratory Tests 11/14/21 11/14/21 11/14/21 12:47 14:48 14:49 WBC RBC Hgb Hct MCV MCH MCHC RDW Plt Count MPV Sodium Potassium Chloride Carbon Dioxide Anion Gap BUN Creatinine Estim Creat Clear Calc Estimated GFR Glucose POC Capillary Glucose Hemoglobin A1c Calcium Magnesium Total Bilirubin AST ALT Alkaline Phosphatase Total Protein Albumin Stl Occult Blood (IFOB) Positive H (N) C. difficile (PCR) Positive A* (NEGATIVE) Blood Type B Negative Antibody Screen Negative Crossmatch See Detail 11/14/21 11/14/21 11/14/21 16:26 19:03 20:17 WBC RBC Hgb 8.8 g/dL L g/dL (12.0-15.0) Hct 26.1 % L % (37.0-47.0) MCV MCH MCHC RDW Plt Count MPV Sodium Potassium Chloride Carbon Dioxide Anion Gap BUN Creatinine Estim Creat Clear Calc Estimated GFR Glucose POC Capillary Glucose 134 mg/dl H mg/dl 170 mg/dl H mg/dl (65-105) (65-105) Hemoglobin A1c Calcium Magnesium Total Bilirubin AST ALT Alkaline Phosphatase Total Protein Albumin Stl Occult Blood (IFOB) C. difficile (PCR) Blood Type Antibody Screen C
[2021-11-15] MEDS: ceFAZolin 2 GM/D5W 50 ML 2 GM/50 ML BAG IVPB ×2 (13:43→22:23)
--- NOTE | 2021-11-15 16:17 | W.PM.PROC2 ---
Procedure Note - Detailed Date of Procedure 11/15/21 Pre-op Diagnosis L Hip Fracture, Liver Cirrhosis, Diabetes Post-op Diagnosis Same Procedure Performed INSERTION GAMMA MICAELA LEFT HIP Surgeon Sandoval Davis MD Anesthesia General Description of Procedure THE PATIENT WAS TAKEN TO THE OPERATING ROOM AND PLACED ON A FRACTURE TABLE AFTER GIVEN GENERAL ANESTHESIA. THE LEFT LOWER EXTREMITY WAS PLACED IN A TRACTION BOOT AND USING SOME TRACTION AND INTERNAL ROTATION THE INNER TROCHANTERIC FRACTURE WAS REDUCED TO ANATOMIC POSITION. NEXT THE LEFT LOWER EXTREMITY WAS PREPPED AND DRAPED IN THE STERILE FASHION. AN INCISION WAS MADE PROXIMAL TO THE TIP OF THE GREATER TROCHANTER AND DISSECTION CONTINUED TILL THE TIP OF THE GREATER TROCHANTER WAS PALPATED. A GUIDE PIN WAS PLACED DOWN THE FEMORAL CANAL AND PAST THE FRACTURE SITE. THIS WAS CHECKED ON FLUOROSCOPY AND FOUND TO BE IN GOOD POSITION. AN INITIAL REAMER WAS USED TO REAM THE FEMORAL CANAL. A 9 BY 200 MM ARTHREX MICAELA WAS INSERTED TILL THE CORRECT POSITION WAS IDENTIFIED ON XRAY. A GUIDE PIN WAS INSERTED THROUGH THE FEMORAL NECK AT [address] TILL IT REACHED THE TIP OF THE SUB CHONDRAL BONE SEEN ON XRAY. AFTER REAMING, LAG SCREW WAS INSERTED MEASURING 100 MM. XRAYS SHOWED IT TO BE IN GOOD POSITION. THE LAG SCREW WAS INTERNALLY LOCKED. NEXT A DISTAL LOCKING SCREW WAS PLACED ACROSS THE MICAELA AND WAS IN GOOD POSITION ON XRAY. THE TRACTION WAS RELEASED. THE WOUNDS WERE WASHED. THE DEEP FASCIA WAS REPAIRED WITH 0 VICRYL SUTURE, THE SUB CUTANEOUS LAYER WITH 2-0 VICRYL, AND THE SKIN WITH SHAHZAD. THE WOUNDS WERE WASHED AND THEN STERILE DRESSING WAS APPLIED. PATIENT WAS EXTUBATED AND SENT TO RECOVERY ROOM. Estimated Blood Loss 100 Urine Output 300 Complications No immediate complications Condition Stable Disposition PACU
[2021-11-15 16:49] LABS: Glucose Point of Care 122 mg/dl (65-105)
[2021-11-15] MEDS: fentaNYL CITRATE INJ (*CRX) 100 MCG/2 ML VIAL 25 MCG IV PUSH ×8 (16:53→17:22)
[2021-11-15] MEDS: SODIUM CHLORIDE 0.9% IV 1,000 ML 125 ML IV CONT (18:04)
[2021-11-15] MEDS: SACCHAROMYCES BOULARDII 250 MG CAPSULE PO (18:05)
[2021-11-15] MEDS: oxyCODONE HCL (*CRX) 5 MG TAB IR PO (18:05)
[2021-11-15] MEDS: MORPHINE SULFATE (*CRX) 4 MG/ML INJ 3 MG IV PUSH (19:28)
[2021-11-15] MEDS: MELATONIN 3 MG TABLET 6 MG PO (21:01)
[2021-11-15] MEDS: HEPARIN SODIUM 5,000 UNITS/ML VIAL 5000 UNITS SUB-Q (21:02)
[2021-11-15] MEDS: TOLNAFTATE 1% POWDER 45 GM BTL 1 APPLIC TOPICAL (21:02)
[2021-11-15 21:21] LABS: Glucose Point of Care 142 mg/dl (65-105)
[2021-11-16] VITALS (12 sets, daily range): BP systolic 100–118; BP diastolic 46–62; PULSE 65–96; RESP 16–20; TEMP 36.2–36.8; O2SAT 93–97; BMI 10.0; BMI 11.0
[2021-11-16] MEDS: VANCOMYCIN ORAL 125 MG/2.5 ML SYRUP PO ×4 (00:36→17:48)
[2021-11-16] MEDS: oxyCODONE HCL (*CRX) 5 MG TAB IR PO ×4 (00:36→17:48)
[2021-11-16] MEDS: SODIUM CHLORIDE 0.9% IV 1,000 ML 125 ML IV CONT (04:21)
[2021-11-16 05:10] LABS: Basophils Percent Auto 0.3 % (0.2-1.2); Eosinophils Absolute Auto 0.1 K/mm3 (0-0.3); Eosinophils Percent Auto 1.9 % (0-4.4); Hematocrit 22.4 % (37.0-47.0); Hemoglobin 7.3 g/dL (12.0-15.0); Immature Granulocyte Absolute 0.08 K/mm3 (0.00-0.031); Immature Granulocyte Percent A 1.3 % (0-0.5); Immature Platelet Fraction Pct 4.4 % (0.9-11.2); Lymphocytes Absolute Auto 0.51 K/mm3 (0.9-3.2); Lymphocytes Percent Auto 8.1 % (18.3-44.2); Mean Corpuscular HGB Conc 32.6 g/dl (32-36); Mean Corpuscular Hemoglobin 30.5 pg (26-34); Mean Corpuscular Volume 93.7 fl (80-100); Mean Platelet Volume 12.6 fl (7.4-10.4); Monocytes Absolute Auto 0.6 K/mm3 (0.1-0.6); Monocytes Percent Auto 9.4 % (2.6-8.5); Platelet Count Result 49 k/mm3 (150-375); Red Blood Count 2.39 M/mm3 (4.2-5.4); Red Cell Distribution Width 15.2 % (11.5-14.5); White Blood Count 6.3 K/mm3 (4.5-10.0)
[2021-11-16 05:25] LABS: Anion Gap 2 mmol/L (8-16); Blood Urea Nitrogen 26 mg/dL (7-17); Calcium 8.3 mg/dL (8.4-10.2); Carbon Dioxide 26 mmol/L (22-30); Chloride 105 mmol/L (98-107); Estimated CRCL calculation 27 ml/min; Estimated Glomerular Filt Rate 37; Glucose 103 mg/dL (65-110); Potassium 4.5 mmol/L (3.4-5.0); Sodium 133 mmol/L (137-145)
[2021-11-16] MEDS: ceFAZolin 2 GM/D5W 50 ML 2 GM/50 ML BAG IVPB ×2 (06:29→14:42)
[2021-11-16] MEDS: LEVOTHYROXINE SODIUM 150 MCG TABLET PO (06:29)
[2021-11-16 07:37] LABS: Glucose Point of Care 93 mg/dl (65-105)
[2021-11-16] MEDS: TAMSULOSIN HCL 0.4 MG CAPSULE PO (09:36)
[2021-11-16] MEDS: CHOLECALCIFEROL 1,000 UNITS TABLET 5000 UNITS PO (09:36)
[2021-11-16] MEDS: SACCHAROMYCES BOULARDII 250 MG CAPSULE PO ×2 (09:37→17:48)
[2021-11-16] MEDS: FERROUS SULFATE 324 MG TABLET PO ×2 (09:37→17:48)
[2021-11-16] MEDS: FLUTICASONE PROPIONATE 0.05% NA SPR 16 GM BTL (*BKC) 1 SPRAY NASAL (09:51)
[2021-11-16] MEDS: LACTULOSE 20 GM/30 ML UDC PO ×3 (09:51→17:48)
[2021-11-16] MEDS: SPIRONOLACTONE 50 MG TABLET 100 MG PO (09:51)
[2021-11-16] MEDS: PROPRANOLOL HCL 10 MG TABLET PO ×2 (09:52→21:26)
[2021-11-16] MEDS: TOLNAFTATE 1% POWDER 45 GM BTL 1 APPLIC TOPICAL ×2 (09:53→21:09)
[2021-11-16] MEDS: FUROSEMIDE 20 MG TABLET 60 MG PO (09:54)
[2021-11-16] MEDS: PANTOPRAZOLE 40 MG TABLET PO (09:58)
[2021-11-16] MEDS: ACETAMINOPHEN 500 MG TABLET PO (09:58)
--- NOTE | 2021-11-16 10:29 | WPDANESPN ---
Anes - Prog Note Post-Op Date/Time: 11/16/21 10:29 Cardiovascular status: normal Respiratory status: normal Airway patency: baseline Mental status: baseline Post-Op hydration status: normal Vital Signs: Last Vital Signs Temp 36.6 C 11/16/21 09:54 Pulse 71 11/16/21 09:54 Resp 20 11/16/21 09:54 BP 109/51 L 11/16/21 09:54 Pulse Ox 97 11/16/21 09:54 Pain Score (VAS): 3 I/O: Intake & Output 11/15/21 11/16/21 11/16/21 23:59 07:59 15:59 Intake Total 402 1000 727 Output Total 1000 250 Balance -598 750 727 Laboratory Tests 11/16/21 04:56 11/16/21 04:56 11/15/21 11/15/21 11/15/21 11:09 16:46 21:17 WBC RBC Hgb Hct MCV MCH MCHC RDW Plt Count MPV Immature Gran % (Auto) Neut % (Auto) Lymph % (Auto) [place] % (Auto) Eos % (Auto) Baso % (Auto) Lymph # (Auto) [place] # (Auto) Eos # (Auto) Baso # (Auto) Abs Immat Gran (auto) Absolute Neuts (auto) Absolute Nucleated RBC Nucleated RBC % % Immature Plt Fraction Sodium Potassium Chloride Carbon Dioxide Anion Gap BUN Creatinine Estim Creat Clear Calc Estimated GFR Glucose POC Capillary Glucose 129 H 122 H 142 H Calcium 11/16/21 11/16/21 11/16/21 04:56 04:56 07:30 WBC 6.3 RBC 2.39 L Hgb 7.3 L Hct 22.4 L MCV 93.7 MCH 30.5 MCHC 32.6 RDW 15.2 H Plt Count 49 L MPV 12.6 H Immature Gran % (Auto) 1.3 H Neut % (Auto) 79.0 H Lymph % (Auto) 8.1 L [place] % (Auto) 9.4 H Eos % (Auto) 1.9 Baso % (Auto) 0.3 Lymph # (Auto) 0.51 L [place] # (Auto) 0.6 Eos # (Auto) 0.1 Baso # (Auto) 0.0 Abs Immat Gran (auto) 0.08 H Absolute Neuts (auto) 5.0 Absolute Nucleated RBC 0.0 Nucleated RBC % 0.0 % Immature Plt Fraction 4.4 Sodium 133 L Potassium 4.5 Chloride 105 Carbon Dioxide 26 Anion Gap 2 L BUN 26 H Creatinine 1.40 H Estim Creat Clear Calc 27 Estimated GFR 37 L Glucose 103 POC Capillary Glucose 93 Calcium 8.3 L Microbiology 11/13/21 15:18 Urine-Clean Catch Urine Culture - Final Proteus Mirabilis Post-procedural complaints: none Patient Feedback: Patient satisfied with anesthetic care.
[2021-11-16 11:35] LABS: Glucose Point of Care 108 mg/dl (65-105)
--- NOTE | 2021-11-16 11:41 | P.PNIM_ITS ---
Progress Note: A&P Assessment and Plan (1) Fall: Code(s): W19.XXXA - Unspecified fall, initial encounter Status: Acute Assessment and Plan: Patient fell forward off the toilet and hit her head and then fell onto her left hip. Denied LOC. * Fall precautions * Head CT completed and showed no acute intracranial findings * She will need PT/OT postoperatively (2) Closed intertrochanteric fracture of left femur: Qualifiers: Encounter type: initial encounter Fracture alignment: displaced Qualified Code(s): S72.142A - Displaced intertrochanteric fracture of left femur, initial encounter for closed fracture Code(s): S72.142A - Displaced intertrochanteric fracture of left femur, initial encounter for closed fracture Status: Acute Assessment and Plan: Secondary to fall as above * Hip/pelvis x-ray showed comminuted intertrochanteric fracture of the left femur * Appreciate orthopedic surgery consultation * Underwent Gamma dona insertion of the left hip on 11/15/2021 * Supportive care. Analgesics available as needed. 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 Monitor platelets * Continue lactulose, propranolol, furosemide and spironolactone (4) Urinary tract infection: Code(s): N39.0 - Urinary tract infection, site not specified Status: Acute Assessment and Plan: UA abnormal on presentation * Patient asymptomatic * Urine culture with preliminary growth of >100k Proteus mirabilis * Continue Rocephin based on susceptibility report (5) Anemia: Code(s): D64.9 - Anemia, unspecified Status: Acute Assessment and Plan: Patient reports history of chronic anemia, looks to be due to iron deficiency * Hgb declined to 7.0 on 11/14 and she was transfused 1 unit pRBC * Stool occult blood test positive * Appreciate GI consult * Per GI, no need for further evaluation at this time. H&H consistent with baseline. * Continue to monitor H&H closely (6) Hypomagnesemia: Code(s): E83.42 - Hypomagnesemia Status: Acute Assessment and Plan: Likely due to diarrhea * Resolved with supplementation (7) C. difficile colitis: Code(s): A04.72 - Enterocolitis due to Clostridium difficile, not specified as recurrent Status: Acute Assessment and Plan: Patient complained of diarrhea for 3 days. C diff PCR is positive. Patient denies recent antibiotic use * Continue oral vancomycin * Episodes of diarrhea are decreasing * Due to this, will resume lactulose to ensure regular bowel movements * Patient is afebrile, without leukocytosis. * Continue probiotic and banatrol supplement Subjective Date/time seen: 11/16/21 11:41 Interval history: Date of service: 11/16/2021 Angeles Veras is a 76 year old female with a history of ZUÑIGA, hypothyroidism, hypertension, type 2 diabetes mellitus, and recent diagnosis of shingles who is seen in follow up for left hip fracture and anemia. She is s/p insertion gamma dona of the left hip yesterday. She tolerated this
--- NOTE | 2021-11-16 11:41 | PM.IMPN ---
Progress Note: A&P Assessment and Plan (1) Fall: Code(s): W19.XXXA - Unspecified fall, initial encounter Status: Acute Assessment and Plan: Patient fell forward off the toilet and hit her head and then fell onto her left hip. Denied LOC. Fall precautions Head CT completed and showed no acute intracranial findings She will need PT/OT postoperatively (2) Closed intertrochanteric fracture of left femur: Qualifiers: Encounter type: initial encounter Fracture alignment: displaced Qualified Code(s): S72.142A - Displaced intertrochanteric fracture of left femur, initial encounter for closed fracture Code(s): S72.142A - Displaced intertrochanteric fracture of left femur, initial encounter for closed fracture Status: Acute Assessment and Plan: Secondary to fall as above Hip/pelvis x-ray showed comminuted intertrochanteric fracture of the left femur Appreciate orthopedic surgery consultation Underwent Gamma dona insertion of the left hip on 11/15/2021 Supportive care. Analgesics available as needed. 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 She has monthly paracentesis Due for paracentesis next 11/28/2021 Thrombocytopenia secondary to cirrhosis. Monitor platelets Continue lactulose, propranolol, furosemide and spironolactone (4) Urinary tract infection: Code(s): N39.0 - Urinary tract infection, site not specified Status: Acute Assessment and Plan: UA abnormal on presentation Patient asymptomatic Urine culture with preliminary growth of >100k Proteus mirabilis Continue Rocephin based on susceptibility report (5) Anemia: Code(s): D64.9 - Anemia, unspecified Status: Acute Assessment and Plan: Patient reports history of chronic anemia, looks to be due to iron deficiency Hgb declined to 7.0 on 11/14 and she was transfused 1 unit pRBC Stool occult blood test positive Appreciate GI consult Per GI, no need for further evaluation at this time. H&H consistent with baseline. Continue to monitor H&H closely (6) Hypomagnesemia: Code(s): E83.42 - Hypomagnesemia Status: Acute Assessment and Plan: Likely due to diarrhea Resolved with supplementation (7) C. difficile colitis: Code(s): A04.72 - Enterocolitis due to Clostridium difficile, not specified as recurrent Status: Acute Assessment and Plan: Patient complained of diarrhea for 3 days. C diff PCR is positive. Patient denies recent antibiotic use Continue oral vancomycin Episodes of diarrhea are decreasing Due to this, will resume lactulose to ensure regular bowel movements Patient is afebrile, without leukocytosis. Continue probiotic and banatrol supplement Subjective Date/time seen: 11/16/21 11:41 Interval history: Date of service: 11/16/2021 Angeles Veras is a 76 year old female with a history of ZUÑIGA, hypothyroidism, hypertension, type 2 diabetes mellitus, and recent diagnosis of shingles who is seen in follow up for left hip fracture and anemia. She is s/p insertion gamma dona of the left hip yesterday. She tolerated this procedure well. She states that her pain has improved after surgery, though she still rates her left hip pain as 9/10. She is still having difficulty with mobility. She had 1 episode of diarrhea last night and none so far today. Denies nausea, vomiting, abdominal pain, fullness, cramping, bloating. She does endorse poor appetite. Denies any bleeding. Denies fevers, chills, dizziness, lightheadedness, weakness, shortness of breath, cough,
--- NOTE | 2021-11-16 12:12 | PM.PNORT ---
Progress Note: A&P Assessment and Plan (1) Closed intertrochanteric fracture of left femur: Qualifiers: Encounter type: subsequent encounter Fracture alignment: displaced Fracture healing: with routine healing Qualified Code(s): S72.142D - Displaced intertrochanteric fracture of left femur, subsequent encounter for closed fracture with routine healing Code(s): S72.142A - Displaced intertrochanteric fracture of left femur, initial encounter for closed fracture Status: Acute Assessment and Plan: Postoperative day 1 left hip intramedullary nail. Patient with complaints of pain diffusely somewhat out of proportion. Difficulty with therapy to mobilize. She did get up to a chair today. Pain control. Continue PT/OT with weight-bearing as tolerated. (2) C. difficile colitis: Code(s): A04.72 - Enterocolitis due to Clostridium difficile, not specified as recurrent Status: Acute Assessment and Plan: Patient on contact isolation. Subjective Subjective Date/Time Seen: 11/16/21 12:12 Post Op day: 3 Principal diagnosis: Left hip intertrochanteric fracture Interval history: postoperative day 1 left hip. Patient complains of pain everywhere and with any movement. Also complains of left hip pain. Denies numbness or tingling. Exam Const: General: No in distress or confusion Orientation/consciousness: patient oriented x3 and No confusion HENMT: Head: normal to inspection, normocephalic and atraumatic Eyes: Conjunctivae: conjunctivae normal Sclera: sclerae normal Resp: Effort & Inspection: normal respiratory effort and no audible wheezes Neuro: General: patient oriented x3 and No confusion Extrem: Left lower extremity: hip/thigh Details: tenderness Location: of the hip Location: laterally and anteriorly, swelling Location: of the hip ( Mild, muscle compartments soft) and other ( incisions covered. Mild serous drainage.) and foot Details: vascular exam Details: dorsalis pedis pulse present and normal capillary refill, tendon exam active flexion normal and active extension normal and motor-sensory exam light-touch normal in all toes Psych: Affect: normal affect Objective Data Vital Signs Vital Signs: Vital Signs - 24 hr 11/15/21 16:34 11/15/21 16:45 11/15/21 17:00 Temperature 97.4 F L Pulse Rate 60 57 L 57 L Respiratory Rate 20 15 20 Blood Pressure 126/51 L 140/58 L 140/58 L Pulse Oximetry 100 100 95 11/15/21 17:15 11/15/21 17:30 11/15/21 17:45 Temperature 96.1 F L Pulse Rate 58 L 59 L 63 Respiratory Rate 20 20 18 Blood Pressure 127/50 L 131/50 L 141/60 H Pulse Oximetry 95 95 98 11/15/21 18:00 11/15/21 18:30 11/15/21 19:13 Temperature 96.0 F L 96.4 F L 96.1 F L Pulse Rate 62 55 L 59 L Respiratory Rate 18 16 18 Blood Pressure 131/50 L 130/51 L 139/45 L Pulse Oximetry 98 99 97 11/15/21 20:00 11/15/21 21:01 11/15/21 23:09 Temperature 96.5 F L Pulse Rate 59 L 65 Respiratory Rate 16 Blood Pressure 101/42 L Pulse Oximetry 97 98 11/16/21 03:30 11/16/21 03:34 11/16/21 08:51 Temperature 97.1 F L Pulse Rate 65 71 Respiratory Rate 17 20 Blood Pressure 100/58 L Pulse Oximetry 93 94 97 11/16/21 09:52 11/16/21 09:54 11/16/21 11:00 Temperature 97.8 F Pulse Rate 71 71 76 Respiratory Rate 20 Blood Pressure 109/51 L Pulse Oximetry 97 96 Intake/Output Intake/Output: Intake & Output 11/13/21 11/14/21 11/15/21 11/16/21 23:59 23:59 23:59 23:59 Intake Total 1050 2934 1552 1727 Output Total 1000 1600 250 Balance 1050 1934 [employer] 1477 Meds/Results Medications: Active Medications Generic Name Dose Route Start Last Admin Trade Name Freq PRN Reason Stop Dose Admin Acetaminophen 500 mg 11/15/21 17:31 11/16/21 09:58 Acetaminophen 500 Mg Tablet PO 500 mg Q6H PRN Administration Pain (Scale Score 1-3)or fever Hydrocodone Bitart/Acetaminophen 1 tab 11/14/21 15:43 Hydrocodone/Acetaminophen (*Crx) 5-
[2021-11-16] MEDS: CELECOXIB 200 MG CAPSULE PO (12:52)
[2021-11-16 16:35] LABS: Glucose Point of Care 134 mg/dl (65-105)
[2021-11-16 18:34] LABS: Hematocrit 21.9 % (37.0-47.0); Hemoglobin 7.4 g/dL (12.0-15.0)
[2021-11-16] MEDS: MELATONIN 3 MG TABLET 6 MG PO (21:09)
[2021-11-16 21:38] LABS: Glucose Point of Care 154 mg/dl (65-105)
--- NOTE | 2021-11-16 23:15 | PC.NURSE ---
This RN spoke with RONAN Quick about pt's need for the dignicare device: L hip surgery, c-diff infection, diarrhea and martínez catheter. Provider agrees and [employer] is requested from visiting housekeeper.
[2021-11-17] VITALS (14 sets, daily range): BP systolic 103–127; BP diastolic 40–59; PULSE 64–84; RESP 16–20; TEMP 36.2–36.5; O2SAT 95–100
[2021-11-17] MEDS: VANCOMYCIN ORAL 125 MG/2.5 ML SYRUP PO ×4 (00:12→17:46)
[2021-11-17] MEDS: oxyCODONE HCL (*CRX) 5 MG TAB IR PO ×4 (00:12→17:46)
[2021-11-17] MEDS: LEVOTHYROXINE SODIUM 150 MCG TABLET PO (06:13)
[2021-11-17 06:18] LABS: Hematocrit 21.6 % (37.0-47.0); Hemoglobin 7.1 g/dL (12.0-15.0); Immature Platelet Fraction Pct 4.4 % (0.9-11.2); Mean Corpuscular HGB Conc 32.9 g/dl (32-36); Mean Corpuscular Volume 94.3 fl (80-100); Mean Platelet Volume 12.4 fl (7.4-10.4); Platelet Count Result 52 k/mm3 (150-375); Red Blood Count 2.29 M/mm3 (4.2-5.4); White Blood Count 7.2 K/mm3 (4.5-10.0)
[2021-11-17 06:28] LABS: Anion Gap 3 mmol/L (8-16); Blood Urea Nitrogen 28 mg/dL (7-17); Calcium 8.2 mg/dL (8.4-10.2); Carbon Dioxide 24 mmol/L (22-30); Chloride 105 mmol/L (98-107); Estimated CRCL calculation 24 ml/min; Estimated Glomerular Filt Rate 32; Glucose 108 mg/dL (65-110); Magnesium 1.7 mg/dL (1.6-2.3); Potassium 3.8 mmol/L (3.4-5.0); Sodium 132 mmol/L (137-145)
[2021-11-17 07:34] LABS: Glucose Point of Care 103 mg/dl (65-105)
--- NOTE | 2021-11-17 07:42 | PC.NURSE ---
Reported to provider Xin low H&H, 7.1 and 21.6, repeat scheduled at noon.
[2021-11-17] MEDS: FERROUS SULFATE 324 MG TABLET PO ×2 (08:20→17:46)
[2021-11-17] MEDS: FLUTICASONE PROPIONATE 0.05% NA SPR 16 GM BTL (*BKC) 1 SPRAY NASAL (08:20)
[2021-11-17] MEDS: PANTOPRAZOLE 40 MG TABLET PO (08:21)
[2021-11-17] MEDS: CHOLECALCIFEROL 1,000 UNITS TABLET 5000 UNITS PO (08:21)
[2021-11-17] MEDS: SACCHAROMYCES BOULARDII 250 MG CAPSULE PO ×2 (08:21→17:46)
[2021-11-17] MEDS: SPIRONOLACTONE 50 MG TABLET 100 MG PO (08:21)
[2021-11-17] MEDS: PROPRANOLOL HCL 10 MG TABLET PO ×2 (08:21→20:24)
[2021-11-17] MEDS: FUROSEMIDE 20 MG TABLET 60 MG PO (08:21)
[2021-11-17] MEDS: TAMSULOSIN HCL 0.4 MG CAPSULE PO (08:22)
[2021-11-17] MEDS: LACTULOSE 20 GM/30 ML UDC PO ×2 (08:22→12:07)
[2021-11-17] MEDS: TOLNAFTATE 1% POWDER 45 GM BTL 1 APPLIC TOPICAL ×2 (08:22→20:24)
[2021-11-17] MEDS: HYDROcodone/acetaminophen (*CRX) 5-325 MG TABLET 1 TAB PO ×3 (08:28→20:24)
--- NOTE | 2021-11-17 08:50 | PM.PNORT ---
Progress Note: A&P Assessment and Plan (1) Closed intertrochanteric fracture of left femur: Qualifiers: Encounter type: subsequent encounter Fracture alignment: displaced Fracture healing: with routine healing Qualified Code(s): S72.142D - Displaced intertrochanteric fracture of left femur, subsequent encounter for closed fracture with routine healing Code(s): S72.142A - Displaced intertrochanteric fracture of left femur, initial encounter for closed fracture Status: Acute Assessment and Plan: Postoperative day 2 left hip intramedullary nail. Patient with complaints of pain diffusely somewhat out of proportion. appears more comfortable today but rates pain 9/10. Celebrex started to assist with Pain control. Continue PT/OT with weight-bearing as tolerated. (2) C. difficile colitis: Code(s): A04.72 - Enterocolitis due to Clostridium difficile, not specified as recurrent Status: Acute Assessment and Plan: Patient on contact isolation. Subjective Subjective Date/Time Seen: 11/17/21 08:50 Post Op day: 2 Principal diagnosis: Left hip intertrochanteric fracture Interval history: patient appears more comfortable today. More conversive able to move better although still rates pain as 9/10. No other complaints period Exam Const: General: No in distress or confusion Orientation/consciousness: patient oriented x3 and No confusion HENMT: Head: normal to inspection, normocephalic and atraumatic Eyes: Conjunctivae: conjunctivae normal Sclera: sclerae normal Resp: Effort & Inspection: normal respiratory effort and no audible wheezes Neuro: General: patient oriented x3 and No confusion Extrem: Left lower extremity: hip/thigh Details: tenderness Location: of the hip Location: laterally and anteriorly, swelling Location: of the hip ( Mild, muscle compartments soft) and other ( incisions covered. Mild serous drainage.) and foot Details: vascular exam Details: dorsalis pedis pulse present and normal capillary refill, tendon exam active flexion normal and active extension normal and motor-sensory exam light-touch normal in all toes Psych: Affect: normal affect Objective Data Vital Signs Vital Signs: Vital Signs - 24 hr 11/16/21 08:51 11/16/21 09:52 11/16/21 09:54 Temperature 97.8 F Pulse Rate 71 71 71 Respiratory Rate 20 20 Blood Pressure 109/51 L Pulse Oximetry 97 97 11/16/21 11:00 11/16/21 13:55 11/16/21 18:00 Temperature 97.4 F L 98.2 F Pulse Rate 76 66 71 Respiratory Rate 18 16 Blood Pressure 112/49 L 100/50 L Pulse Oximetry 96 97 97 11/16/21 19:28 11/16/21 20:00 11/16/21 21:26 Temperature 97.8 F Pulse Rate 96 89 Respiratory Rate 17 Blood Pressure 107/62 Pulse Oximetry 96 97 11/16/21 23:43 11/17/21 03:38 11/17/21 08:21 Temperature 97.5 F L 97.7 F Pulse Rate 66 64 66 Respiratory Rate 18 18 Blood Pressure 118/46 L 107/51 L Pulse Oximetry 97 95 Intake/Output Intake/Output: Intake & Output 11/14/21 11/15/21 11/16/21 11/17/21 23:59 23:59 23:59 23:59 Intake Total 2934 1552 2592 100 Output Total 1000 1600 750 150 Balance 1934 -48 1842 -50 Meds/Results Medications: Active Medications Generic Name Dose Route Start Last Admin Trade Name Freq PRN Reason Stop Dose Admin Acetaminophen 500 mg 11/15/21 17:31 11/16/21 09:58 Acetaminophen 500 Mg Tablet PO 500 mg Q6H PRN Administration Pain (Scale Score 1-3)or fever Hydrocodone Bitart/Acetaminophen 1 tab 11/14/21 15:43 11/17/21 08:28 Hydrocodone/Acetaminophen (*Crx) 5-325 Mg Tablet PO 1 tab Q4H PRN Administration Pain Rated 4-6 Bisacodyl 10 mg 11/15/21 17:31 Bisacodyl 10 Mg Suppository RECTAL DAILY PRN Constipation Celecoxib 200 mg 11/16/21 08:00 11/16/21 12:52 Celecoxib 200 Mg Capsule PO 200 mg DAILY@0800 SHERRILL Administration Dextrose 12.5 gm 11/14/21 15:58 Dextrose 50% 25 Gm/50 Ml Syringe IV PUSH
--- NOTE | 2021-11-17 08:55 | PC.NURSE ---
called pharmacy pt missing celecoxib 200 mg po this morning, awaiting pharmacy to deliver medication.
[2021-11-17] MEDS: ACETAMINOPHEN 500 MG TABLET PO (09:34)
[2021-11-17] MEDS: CELECOXIB 200 MG CAPSULE PO (09:34)
--- NOTE | 2021-11-17 09:39 | P.PNIM_ITS ---
Progress Note: A&P Assessment and Plan (1) Fall: Code(s): W19.XXXA - Unspecified fall, initial encounter Status: Acute Assessment and Plan: Patient fell forward off the toilet and hit her head and then fell onto her left hip. Denied LOC. * Fall precautions * Head CT completed and showed no acute intracranial findings (2) Closed intertrochanteric fracture of left femur: Qualifiers: Encounter type: subsequent encounter Fracture alignment: displaced Fracture healing: with routine healing Qualified Code(s): S72.142D - Displaced intertrochanteric fracture of left femur, subsequent encounter for closed fracture with routine healing Code(s): S72.142A - Displaced intertrochanteric fracture of left femur, initial encounter for closed fracture Status: Acute Assessment and Plan: Secondary to fall as above * Hip/pelvis x-ray showed comminuted intertrochanteric fracture of the left femur * Appreciate orthopedic surgery consultation * Underwent Gamma dona insertion of the left hip on 11/15/2021 * Supportive care. Analgesics available as needed. 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 Monitor platelets * Continue propranolol, furosemide and spironolactone * Hold lactulose given persistent diarrhea (4) Urinary tract infection: Code(s): N39.0 - Urinary tract infection, site not specified Status: Acute Assessment and Plan: UA abnormal on presentation * Patient asymptomatic * Urine culture with preliminary growth of >100k Proteus mirabilis * Continue Rocephin based on susceptibility report (5) Anemia: Code(s): D64.9 - Anemia, unspecified Status: Acute Assessment and Plan: Patient reports history of chronic anemia, looks to be due to iron deficiency * Hgb declined to 7.0 on 11/14 and she was transfused 1 unit pRBC * Stool occult blood test positive * Appreciate GI consult * Per GI, no need for further evaluation at this time. H&H consistent with baseline. * Hemoglobin 7.1 today. Repeat this afternoon to ensure remaining stable. Transfuse as needed to maintain hemoglobin >7.0 (6) Hypomagnesemia: Code(s): E83.42 - Hypomagnesemia Status: Acute Assessment and Plan: Likely due to diarrhea * Mag 1.7 today * Administer 2 g IV magnesium sulfate (7) C. difficile colitis: Code(s): A04.72 - Enterocolitis due to Clostridium difficile, not specified as recurrent Status: Acute Assessment and Plan: Patient complained of diarrhea for 3 days prior to presentation. C diff PCR is positive. Patient denies recent antibiotic use * Continue oral vancomycin * Documented 9 episodes of diarrhea yesterday * Hold lactulose * Patient is afebrile, without leukocytosis. * Continue probiotic and banatrol supplement Subjective Date/time seen: 11/17/21 09:39 Interval history: Date of service: 11/17/2021 Angeles Veras is a 76 year old female with a history of ZUÑIGA, hyp
--- NOTE | 2021-11-17 09:39 | PM.IMPN ---
Progress Note: A&P Assessment and Plan (1) Fall: Code(s): W19.XXXA - Unspecified fall, initial encounter Status: Acute Assessment and Plan: Patient fell forward off the toilet and hit her head and then fell onto her left hip. Denied LOC. Fall precautions Head CT completed and showed no acute intracranial findings (2) Closed intertrochanteric fracture of left femur: Qualifiers: Encounter type: subsequent encounter Fracture alignment: displaced Fracture healing: with routine healing Qualified Code(s): S72.142D - Displaced intertrochanteric fracture of left femur, subsequent encounter for closed fracture with routine healing Code(s): S72.142A - Displaced intertrochanteric fracture of left femur, initial encounter for closed fracture Status: Acute Assessment and Plan: Secondary to fall as above Hip/pelvis x-ray showed comminuted intertrochanteric fracture of the left femur Appreciate orthopedic surgery consultation Underwent Gamma dona insertion of the left hip on 11/15/2021 Supportive care. Analgesics available as needed. 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 Monitor platelets Continue propranolol, furosemide and spironolactone Hold lactulose given persistent diarrhea (4) Urinary tract infection: Code(s): N39.0 - Urinary tract infection, site not specified Status: Acute Assessment and Plan: UA abnormal on presentation Patient asymptomatic Urine culture with preliminary growth of >100k Proteus mirabilis Continue Rocephin based on susceptibility report (5) Anemia: Code(s): D64.9 - Anemia, unspecified Status: Acute Assessment and Plan: Patient reports history of chronic anemia, looks to be due to iron deficiency Hgb declined to 7.0 on 11/14 and she was transfused 1 unit pRBC Stool occult blood test positive Appreciate GI consult Per GI, no need for further evaluation at this time. H&H consistent with baseline. Hemoglobin 7.1 today. Repeat this afternoon to ensure remaining stable. Transfuse as needed to maintain hemoglobin >7.0 (6) Hypomagnesemia: Code(s): E83.42 - Hypomagnesemia Status: Acute Assessment and Plan: Likely due to diarrhea Mag 1.7 today Administer 2 g IV magnesium sulfate (7) C. difficile colitis: Code(s): A04.72 - Enterocolitis due to Clostridium difficile, not specified as recurrent Status: Acute Assessment and Plan: Patient complained of diarrhea for 3 days prior to presentation. C diff PCR is positive. Patient denies recent antibiotic use Continue oral vancomycin Documented 9 episodes of diarrhea yesterday Hold lactulose Patient is afebrile, without leukocytosis. Continue probiotic and banatrol supplement Subjective Date/time seen: 11/17/21 09:39 Interval history: Date of service: 11/17/2021 Angeles Veras is a 76 year old female with a history of ZUÑIGA, hypothyroidism, hypertension, type 2 diabetes mellitus, and recent diagnosis of shingles who is seen in follow up for left hip fracture and anemia. She is feeling better today. Continues to rate her left hip pain is 9/10, though she states that she is more comfortable today. She was able to get up to the chair yesterday and tolerated this well, though she does state that her pain is worse with movement. She is tolerating her diet. She denies nausea, v
[2021-11-17 12:02] LABS: Glucose Point of Care 129 mg/dl (65-105)
[2021-11-17] MEDS: MAGNESIUM SULF 2 GM/WATER 50ML 2 GM/50 ML BAG IVPB (12:07)
[2021-11-17 12:19] LABS: Hematocrit 21.4 % (37.0-47.0)
--- NOTE | 2021-11-17 12:21 | PCNEURO ---
called pharmacy for vancomycin oral dose, awaiting deliver from pharmacy.
--- NOTE | 2021-11-17 12:24 | PC.NURSE ---
reported H&H to [facility] provider 7.0/21.4
[2021-11-17] MEDS: SODIUM CHLORIDE 0.9% IV 250 ML 30 ML IV CONT (13:53)
[2021-11-17] MEDS: TUBING, BLOOD PLUM PUMP TUBING 1 EACH XX (13:53)
[2021-11-17 16:31] LABS: Glucose Point of Care 172 mg/dl (65-105)
--- NOTE | 2021-11-17 16:41 | PC.NURSE ---
1 unit transfused this shift tolerated well.
--- NOTE | 2021-11-17 18:41 | PC.NURSE ---
martínez removed at 1200 pm today, x1 void 200 ml around 1800. Called MD Mathias for martínez re-insertion orders, if >350 ml re-insert martínez. Bladder scanned 0 ml. No need for martínez at this time.
[2021-11-17 18:59] LABS: Hematocrit 25.5 % (37.0-47.0); Hemoglobin 8.4 g/dL (12.0-15.0)
[2021-11-17] MEDS: MELATONIN 3 MG TABLET 6 MG PO (20:24)
[2021-11-17 21:28] LABS: Glucose Point of Care 203 mg/dl (65-105)
[2021-11-18 00:34] LABS: Hematocrit 24.7 % (37.0-47.0); Hemoglobin 8.2 g/dL (12.0-15.0)
[2021-11-18] MEDS: VANCOMYCIN ORAL 125 MG/2.5 ML SYRUP PO ×4 (01:19→18:00)
[2021-11-18] MEDS: oxyCODONE HCL (*CRX) 5 MG TAB IR PO ×4 (01:19→18:01)
[2021-11-18 03:19] VITALS: BP 109/66; PULSE 64; RESP 18; TEMP 35.9; O2SAT 97
[2021-11-18 05:42] LABS: Hematocrit 24.6 % (37.0-47.0); Hemoglobin 8.3 g/dL (12.0-15.0); Mean Corpuscular HGB Conc 33.7 g/dl (32-36); Mean Corpuscular Volume 91.8 fl (80-100); Mean Platelet Volume 12.5 fl (7.4-10.4); Platelet Count Result 54 k/mm3 (150-375); Red Blood Count 2.68 M/mm3 (4.2-5.4); Red Cell Distribution Width 16.7 % (11.5-14.5); White Blood Count 6.3 K/mm3 (4.5-10.0)
[2021-11-18 06:17] LABS: Anion Gap 5 mmol/L (8-16); Blood Urea Nitrogen 31 mg/dL (7-17); Carbon Dioxide 23 mmol/L (22-30); Chloride 104 mmol/L (98-107); Estimated CRCL calculation 21 ml/min; Estimated Glomerular Filt Rate 28; Glucose 127 mg/dL (65-110); Magnesium 2.1 mg/dL (1.6-2.3); Potassium 3.9 mmol/L (3.4-5.0); Sodium 132 mmol/L (137-145)
[2021-11-18] MEDS: LEVOTHYROXINE SODIUM 150 MCG TABLET PO (06:30)
[2021-11-18 07:45] LABS: Glucose Point of Care 109 mg/dl (65-105)
[2021-11-18] MEDS: CHOLECALCIFEROL 1,000 UNITS TABLET 5000 UNITS PO (07:46)
[2021-11-18] MEDS: FERROUS SULFATE 324 MG TABLET PO ×2 (07:46→18:00)
[2021-11-18] MEDS: CELECOXIB 200 MG CAPSULE PO (07:46)
[2021-11-18 07:47] VITALS: PULSE 60
[2021-11-18] MEDS: TAMSULOSIN HCL 0.4 MG CAPSULE PO (07:47)
[2021-11-18] MEDS: TOLNAFTATE 1% POWDER 45 GM BTL 1 APPLIC TOPICAL ×2 (07:47→21:38)
[2021-11-18] MEDS: PROPRANOLOL HCL 10 MG TABLET PO ×2 (07:47→21:36)
[2021-11-18] MEDS: PANTOPRAZOLE 40 MG TABLET PO (07:47)
[2021-11-18] MEDS: LACTULOSE 20 GM/30 ML UDC PO (07:47)
[2021-11-18] MEDS: SACCHAROMYCES BOULARDII 250 MG CAPSULE PO ×2 (07:47→18:00)
[2021-11-18] MEDS: FUROSEMIDE 20 MG TABLET 60 MG PO (07:47)
[2021-11-18] MEDS: SPIRONOLACTONE 50 MG TABLET 100 MG PO (07:47)
[2021-11-18] MEDS: FLUTICASONE PROPIONATE 0.05% NA SPR 16 GM BTL (*BKC) 1 SPRAY NASAL (07:48)
[2021-11-18 08:00] VITALS: PULSE 60; RESP 18; O2SAT 97
--- NOTE | 2021-11-18 09:36 | PM.PNORT ---
Progress Note: A&P Assessment and Plan (1) Closed intertrochanteric fracture of left femur: Qualifiers: Encounter type: subsequent encounter Fracture alignment: displaced Fracture healing: with routine healing Qualified Code(s): S72.142D - Displaced intertrochanteric fracture of left femur, subsequent encounter for closed fracture with routine healing Code(s): S72.142A - Displaced intertrochanteric fracture of left femur, initial encounter for closed fracture Status: Acute Assessment and Plan: POD #3: Left hip intramedullary nail. Continue PT/OT. WBAT. Walker. HIGH FALL RISK. Continue pain control. Ice hip. Protect skin. SCDs. Incentive Spirometry Use reviewed. Monitor Dressing. Change daily. Dispo:SNF when medically stable. Follow up appointment arranged. (2) C. difficile colitis: Code(s): A04.72 - Enterocolitis due to Clostridium difficile, not specified as recurrent Status: Acute Assessment and Plan: Patient on contact isolation. Subjective Subjective Date/Time Seen: 11/18/21 09:36 Post Op day: 3 Interval history: POD#3: Left IT Fracture Patient reports improvement in pain today. No new concerns. Review of Systems Review of Systems: All systems reviewed & are unremarkable except as noted in HPI and below Exam Const: General: No in distress or confusion Orientation/consciousness: patient oriented x3 and No confusion HENMT: Head: normal to inspection, normocephalic and atraumatic Eyes: Conjunctivae: conjunctivae normal Sclera: sclerae normal Resp: Effort & Inspection: normal respiratory effort and no audible wheezes Neuro: General: patient oriented x3 and No confusion Extrem: Left lower extremity: hip/thigh Details: tenderness Location: of the hip Location: laterally and anteriorly, swelling Location: of the hip ( Mild, muscle compartments soft) and other ( incisions covered. Mild serous drainage.) and foot Details: vascular exam Details: dorsalis pedis pulse present and normal capillary refill, tendon exam active flexion normal and active extension normal and motor-sensory exam light-touch normal in all toes Psych: Affect: normal affect Objective Data Vital Signs Vital Signs: Vital Signs - 24 hr 11/17/21 13:55 11/17/21 14:06 11/17/21 14:20 Temperature 36.4 C 36.4 C 36.3 C L Pulse Rate 78 78 80 Respiratory Rate 20 20 18 Blood Pressure 103/51 L 103/51 L 106/47 L Pulse Oximetry 97 97 99 11/17/21 15:20 11/17/21 16:20 11/17/21 16:35 Temperature 36.4 C L 36.2 C L 36.2 C L Pulse Rate 84 80 78 Respiratory Rate 18 20 18 Blood Pressure 107/51 L 117/57 L 127/59 L Pulse Oximetry 98 97 97 11/17/21 19:21 11/17/21 20:00 11/17/21 20:24 Temperature 36.2 C L Pulse Rate 66 66 66 Respiratory Rate 17 17 Blood Pressure 104/40 L Pulse Oximetry 99 97 11/17/21 21:22 11/17/21 23:18 11/18/21 03:19 Temperature 36.2 C L 35.9 C L Pulse Rate 67 64 Respiratory Rate 16 18 Blood Pressure 121/55 L 109/66 Pulse Oximetry 97 100 97 11/18/21 07:47 11/18/21 08:00 Temperature Pulse Rate 60 60 Respiratory Rate 18 Blood Pressure Pulse Oximetry 97 Intake/Output Intake/Output: Intake & Output 11/15/21 11/16/21 11/17/21 11/18/21 23:59 23:59 23:59 23:59 Intake Total 1552 2592 1628 220 Output Total 1600 750 600 300 Balance -48 1842 1028 -80 Meds/Results Medications: Active Medications Generic Name Dose Route Start Last Admin Trade Name Freq PRN Reason Stop Dose Admin Acetaminophen 500 mg 11/15/21 17:31 11/17/21 09:34 Acetaminophen 500 Mg Tablet PO 500 mg Q6H PRN Administration Pain (Scale Score 1-3)or fever Hydrocodone Bitart/Acetaminophen 1 tab 11/14/21 15:43 11/17/21 20:24 Hydrocodone/Acetaminophen (*Crx) 5-325 Mg Tablet PO 1 tab Q4H PRN Administration Pain Rated 4-6 Bisacodyl 10 mg 11/15/21 17:31 Bisacodyl 10 Mg Suppository RECTAL DAILY PRN Constipation Antoinette
[2021-11-18] MEDS: HYDROcodone/acetaminophen (*CRX) 5-325 MG TABLET 1 TAB PO ×3 (09:58→21:40)
[2021-11-18 10:00] VITALS: BP 124/54; PULSE 61; RESP 18; TEMP 36.4; O2SAT 97
[2021-11-18 11:34] LABS: Glucose Point of Care 138 mg/dl (65-105)
--- NOTE | 2021-11-18 14:47 | P.PNIM_ITS ---
Progress Note: A&P Assessment and Plan (1) Fall: Code(s): W19.XXXA - Unspecified fall, initial encounter Status: Acute Assessment and Plan: Patient fell forward off the toilet and hit her head and then fell onto her left hip. Denied LOC. * Fall precautions * Head CT completed and showed no acute intracranial findings (2) Closed intertrochanteric fracture of left femur: Qualifiers: Encounter type: subsequent encounter Fracture alignment: displaced Fracture healing: with routine healing Qualified Code(s): S72.142D - Displaced intertrochanteric fracture of left femur, subsequent encounter for closed fracture with routine healing Code(s): S72.142A - Displaced intertrochanteric fracture of left femur, initial encounter for closed fracture Status: Acute Assessment and Plan: Secondary to fall as above * Hip/pelvis x-ray showed comminuted intertrochanteric fracture of the left femur * Appreciate orthopedic surgery consultation * Underwent Gamma dona insertion of the left hip on 11/15/2021 * Supportive care. Analgesics available as needed. 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 Monitor platelets * Continue propranolol, furosemide and spironolactone * Hold lactulose given persistent diarrhea (4) Urinary tract infection: Code(s): N39.0 - Urinary tract infection, site not specified Status: Acute Assessment and Plan: UA abnormal on presentation * Patient asymptomatic * Urine culture with preliminary growth of >100k Proteus mirabilis * Continue Rocephin #6 based on susceptibility report (5) Anemia: Code(s): D64.9 - Anemia, unspecified Status: Acute Assessment and Plan: Patient reports history of chronic anemia, looks to be due to iron deficiency * She has received a total of 2 units pRBC during admission to maintain Hgb >7.0 * Stool occult blood test positive * She has been seen in consultation by gastroenterology * Per GI, no need for further evaluation at this time. H&H consistent with baseline. * Hemoglobin 8.3 today. Continue to monitor H&H (6) Hypomagnesemia: Code(s): E83.42 - Hypomagnesemia Status: Acute Assessment and Plan: Likely due to diarrhea * Resolved with medication * Mag 2.1 today (7) C. difficile colitis: Code(s): A04.72 - Enterocolitis due to Clostridium difficile, not specified as recurrent Status: Acute Assessment and Plan: Patient complained of diarrhea for 3 days prior to presentation. C diff PCR is positive. Patient denies recent antibiotic use * Continue oral vancomycin * Having frequent watery brown stool * Hold lactulose * Patient is afebrile without leukocytosis. * Continue probiotic and banatrol supplement * Continue with fecal tube due to frequent diarrhea and pain with rotation, patient unable to get up to the bathroom (8) Urinary retention: Code(s): R33.9 - Retention of urine, unspecified Status: Acute Assessment and Plan: Banuelos removed 11/17/21 * Patient was able to void once but subsequently was having decr
--- NOTE | 2021-11-18 14:47 | PM.IMPN ---
Progress Note: A&P Assessment and Plan (1) Fall: Code(s): W19.XXXA - Unspecified fall, initial encounter Status: Acute Assessment and Plan: Patient fell forward off the toilet and hit her head and then fell onto her left hip. Denied LOC. Fall precautions Head CT completed and showed no acute intracranial findings (2) Closed intertrochanteric fracture of left femur: Qualifiers: Encounter type: subsequent encounter Fracture alignment: displaced Fracture healing: with routine healing Qualified Code(s): S72.142D - Displaced intertrochanteric fracture of left femur, subsequent encounter for closed fracture with routine healing Code(s): S72.142A - Displaced intertrochanteric fracture of left femur, initial encounter for closed fracture Status: Acute Assessment and Plan: Secondary to fall as above Hip/pelvis x-ray showed comminuted intertrochanteric fracture of the left femur Appreciate orthopedic surgery consultation Underwent Gamma dona insertion of the left hip on 11/15/2021 Supportive care. Analgesics available as needed. 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 Monitor platelets Continue propranolol, furosemide and spironolactone Hold lactulose given persistent diarrhea (4) Urinary tract infection: Code(s): N39.0 - Urinary tract infection, site not specified Status: Acute Assessment and Plan: UA abnormal on presentation Patient asymptomatic Urine culture with preliminary growth of >100k Proteus mirabilis Continue Rocephin #6 based on susceptibility report (5) Anemia: Code(s): D64.9 - Anemia, unspecified Status: Acute Assessment and Plan: Patient reports history of chronic anemia, looks to be due to iron deficiency She has received a total of 2 units pRBC during admission to maintain Hgb >7.0 Stool occult blood test positive She has been seen in consultation by gastroenterology Per GI, no need for further evaluation at this time. H&H consistent with baseline. Hemoglobin 8.3 today. Continue to monitor H&H (6) Hypomagnesemia: Code(s): E83.42 - Hypomagnesemia Status: Acute Assessment and Plan: Likely due to diarrhea Resolved with medication Mag 2.1 today (7) C. difficile colitis: Code(s): A04.72 - Enterocolitis due to Clostridium difficile, not specified as recurrent Status: Acute Assessment and Plan: Patient complained of diarrhea for 3 days prior to presentation. C diff PCR is positive. Patient denies recent antibiotic use Continue oral vancomycin Having frequent watery brown stool Hold lactulose Patient is afebrile without leukocytosis. Continue probiotic and banatrol supplement Continue with fecal tube due to frequent diarrhea and pain with rotation, patient unable to get up to the bathroom (8) Urinary retention: Code(s): R33.9 - Retention of urine, unspecified Status: Acute Assessment and Plan: Banuelos removed 11/17/21 Patient was able to void once but subsequently was having decreased urine output. Bladder scan revealed >900 cc She does have history of urinary retention at prior hospitalization Replaced Banuelos catheter She will need urology follow-up Continue tamsulosin Subjective Date/time seen: 11/18/21 14:47 Interval history: Date of service: 11/18/2021 Angeles Veras is a 76 year old female with a history of ZUÑIGA, hypothyroidism, hypertension, type 2 diabetes mellitus, and recent diagnosis of shingles who
--- NOTE | 2021-11-18 15:24 | PC.NURSE ---
Xin ZHAO notified of bladder scan >999, martínez order received
[2021-11-18 16:21] LABS: Glucose Point of Care 157 mg/dl (65-105)
[2021-11-18 20:18] VITALS: BP 117/48; PULSE 68; RESP 16; TEMP 36.8; O2SAT 96
[2021-11-18 20:58] LABS: Glucose Point of Care 146 mg/dl (65-105)
[2021-11-18] MEDS: MELATONIN 3 MG TABLET 6 MG PO (21:35)
[2021-11-19] MEDS: VANCOMYCIN ORAL 125 MG/2.5 ML SYRUP PO ×5 (00:40→23:58)
[2021-11-19] MEDS: oxyCODONE HCL (*CRX) 5 MG TAB IR PO ×5 (00:40→23:57)
[2021-11-19 03:48] VITALS: BP 110/48; PULSE 67; RESP 18; TEMP 36; O2SAT 95
[2021-11-19 05:16] LABS: Hemoglobin 8.1 g/dL (12.0-15.0); Mean Corpuscular HGB Conc 33.8 g/dl (32-36); Mean Corpuscular Hemoglobin 31.3 pg (26-34); Mean Corpuscular Volume 92.7 fl (80-100); Mean Platelet Volume 11.8 fl (7.4-10.4); Platelet Count Result 55 k/mm3 (150-375); Red Blood Count 2.59 M/mm3 (4.2-5.4); Red Cell Distribution Width 17.4 % (11.5-14.5); White Blood Count 6.6 K/mm3 (4.5-10.0)
[2021-11-19 05:32] LABS: Anion Gap 5 mmol/L (8-16); Blood Urea Nitrogen 37 mg/dL (7-17); Calcium 7.9 mg/dL (8.4-10.2); Carbon Dioxide 22 mmol/L (22-30); Chloride 105 mmol/L (98-107); Estimated CRCL calculation 20 ml/min; Estimated Glomerular Filt Rate 26; Glucose 116 mg/dL (65-110); Sodium 132 mmol/L (137-145)
[2021-11-19] MEDS: LEVOTHYROXINE SODIUM 150 MCG TABLET PO (05:57)
[2021-11-19 08:03] VITALS: PULSE 68
[2021-11-19] MEDS: PROPRANOLOL HCL 10 MG TABLET PO ×2 (08:03→22:16)
[2021-11-19] MEDS: FERROUS SULFATE 324 MG TABLET PO ×2 (08:03→17:34)
[2021-11-19] MEDS: CELECOXIB 200 MG CAPSULE PO (08:03)
[2021-11-19] MEDS: FUROSEMIDE 20 MG TABLET 60 MG PO (08:03)
[2021-11-19] MEDS: FLUTICASONE PROPIONATE 0.05% NA SPR 16 GM BTL (*BKC) 1 SPRAY NASAL (08:03)
[2021-11-19] MEDS: CHOLECALCIFEROL 1,000 UNITS TABLET 5000 UNITS PO (08:03)
[2021-11-19] MEDS: PANTOPRAZOLE 40 MG TABLET PO (08:03)
[2021-11-19] MEDS: TOLNAFTATE 1% POWDER 45 GM BTL 1 APPLIC TOPICAL ×2 (08:04→22:16)
[2021-11-19] MEDS: SACCHAROMYCES BOULARDII 250 MG CAPSULE PO ×2 (08:04→17:34)
[2021-11-19] MEDS: TAMSULOSIN HCL 0.4 MG CAPSULE PO (08:04)
[2021-11-19] MEDS: SPIRONOLACTONE 50 MG TABLET 100 MG PO (08:04)
[2021-11-19 08:17] LABS: Glucose Point of Care 117 mg/dl (65-105)
[2021-11-19] MEDS: SODIUM CHLORIDE 0.9% IV 1,000 ML 75 ML IV CONT (11:06)
[2021-11-19] MEDS: HYDROcodone/acetaminophen (*CRX) 5-325 MG TABLET 1 TAB PO (11:08)
[2021-11-19 11:31] LABS: Glucose Point of Care 126 mg/dl (65-105)
--- NOTE | 2021-11-19 11:31 | PCNFU ---
Nutrition Follow-Up Complete: Unintentional weight loss related to reduced appetite and intake as evidenced by pt report of 15# wt loss x 3 months due to poor appetite. Goal: Increase po intake, greater than or equal to 50% of meals Patient has limited progress towards goal. We will continue current goal. Pt current nutrition is DBCC. Last recorded weight is 65 kg, no new weight to report. Bowel Motility: FMS Labs Reviewed:Glu 116, GFR 26, Na 132, Hct 24.0,Hgb 8.1,BUN 37, Cr 1.9 Meds Noted:Vancomycin,Synthroid, Florastor, NS, Protonix, Ferrous Sulfate, [place], Celebrex. Skin: WNL Additional Notes: Patient currently on DBCC diet. Oral Intake: 10-25% of meals. Patient is CDiff positive. Banatrol Plus has been added TID for stool bulking. Diet supplements of Glucerna shakes started today providing an additional 220 kcals and 10 gms protein. PO intake encouraged. Monitor intake of meals, wt, labs. Follow up in 5 days.
--- NOTE | 2021-11-19 12:57 | PM.PNORT ---
Progress Note: A&P Assessment and Plan (1) Closed intertrochanteric fracture of left femur: Qualifiers: Encounter type: subsequent encounter Fracture alignment: displaced Fracture healing: with routine healing Qualified Code(s): S72.142D - Displaced intertrochanteric fracture of left femur, subsequent encounter for closed fracture with routine healing Code(s): S72.142A - Displaced intertrochanteric fracture of left femur, initial encounter for closed fracture Status: Acute Assessment and Plan: POD #4: Left hip intramedullary nail. Continue PT/OT. WBAT. Walker. HIGH FALL RISK. Continue pain control. Ice hip. Protect skin. SCDs. Incentive Spirometry Use reviewed. Monitor Dressing. Change daily. Dispo:SNF when medically stable. Follow up appointment arranged. (2) C. difficile colitis: Code(s): A04.72 - Enterocolitis due to Clostridium difficile, not specified as recurrent Status: Acute Assessment and Plan: Patient on contact isolation. Additional Plan . Subjective Subjective Date/Time Seen: 11/19/21 12:57 Post Op day: 4 Interval history: POD#4: Left IT Fracture Continued improvement in left hip pain. Some discomfort/itching behind left knee which improved upon moving her SCDs towards her calf. Concerns about discharge care plan. Review of Systems Review of Systems: All systems reviewed & are unremarkable except as noted in HPI and below Exam Const: General: No in distress or confusion Orientation/consciousness: patient oriented x3 and No confusion HENMT: Head: normal to inspection, normocephalic and atraumatic Eyes: Conjunctivae: conjunctivae normal Sclera: sclerae normal Resp: Effort & Inspection: normal respiratory effort and no audible wheezes Neuro: General: patient oriented x3 and No confusion Extrem: Left lower extremity: hip/thigh Details: tenderness Location: of the hip Location: laterally and anteriorly, swelling Location: of the hip ( Mild, muscle compartments soft) and other ( incisions covered. Mild serous drainage.) and foot Details: vascular exam Details: dorsalis pedis pulse present and normal capillary refill, tendon exam active flexion normal and active extension normal and motor-sensory exam light-touch normal in all toes Psych: Affect: normal affect Objective Data Vital Signs Vital Signs: Vital Signs - 24 hr 11/18/21 20:18 11/19/21 03:48 11/19/21 08:03 Temperature 36.8 C 36.0 C L Pulse Rate 68 67 68 Respiratory Rate 16 18 Blood Pressure 117/48 L 110/48 L Pulse Oximetry 96 95 Intake/Output Intake/Output: Intake & Output 11/16/21 11/17/21 11/18/21 11/19/21 23:59 23:59 23:59 23:59 Intake Total 2592 1628 960 190 Output Total 750 600 700 200 Balance 1842 1028 260 -10 Meds/Results Medications: Active Medications Generic Name Dose Route Start Last Admin Trade Name Freq PRN Reason Stop Dose Admin Acetaminophen 500 mg 11/15/21 17:31 11/17/21 09:34 Acetaminophen 500 Mg Tablet PO 500 mg Q6H PRN Administration Pain (Scale Score 1-3)or fever Hydrocodone Bitart/Acetaminophen 1 tab 11/14/21 15:43 11/19/21 11:08 Hydrocodone/Acetaminophen (*Crx) 5-325 Mg Tablet PO 1 tab Q4H PRN Administration Pain Rated 4-6 Bisacodyl 10 mg 11/15/21 17:31 Bisacodyl 10 Mg Suppository RECTAL DAILY PRN Constipation Celecoxib 200 mg 11/16/21 08:00 11/19/21 08:03 Celecoxib 200 Mg Capsule PO 200 mg DAILY@0800 SHERRILL Administration Dextrose 12.5 gm 11/14/21 15:58 Dextrose 50% 25 Gm/50 Ml Syringe IV PUSH PRN PRN Hypoglycemia Protocol Diazepam 5 mg 11/15/21 17:31 Diazepam (*Crx) 5 Mg Tablet PO Q8H PRN Muscle Spasm Ferrous Sulfate 324 mg 11/14/21 09:00 11/19/21 08:03 Ferrous Sulfate 324 Mg Tablet PO 324 mg BIDWM SHERRILL Administration Fluticasone Propionate 1 spray 11/14/21 09:00 11/19/21 08:03 Fluticasone Propionate 0.05% Na S
--- NOTE | 2021-11-19 14:34 | P.PNIM_ITS ---
Progress Note: A&P Assessment and Plan (1) Fall: Code(s): W19.XXXA - Unspecified fall, initial encounter Status: Acute Assessment and Plan: Patient fell forward off the toilet and hit her head and then fell onto her left hip. Denied LOC. * Fall precautions * Head CT completed and showed no acute intracranial findings (2) Closed intertrochanteric fracture of left femur: Qualifiers: Encounter type: subsequent encounter Fracture alignment: displaced Fracture healing: with routine healing Qualified Code(s): S72.142D - Displaced intertrochanteric fracture of left femur, subsequent encounter for closed fracture with routine healing Code(s): S72.142A - Displaced intertrochanteric fracture of left femur, initial encounter for closed fracture Status: Acute Assessment and Plan: Secondary to fall as above * Hip/pelvis x-ray showed comminuted intertrochanteric fracture of the left femur * Appreciate orthopedic surgery consultation * Underwent Gamma dona insertion of the left hip on 11/15/2021 * Supportive care. Analgesics available as needed. * Continue PT/OT. Making slow progress with therapy * Not a candidate for pharmacologic DVT prophylaxis including subQ heparin or Lovenox due to thrombocytopenia (3) Urinary tract infection: Code(s): N39.0 - Urinary tract infection, site not specified Status: Acute Assessment and Plan: UA abnormal on presentation * Patient asymptomatic * Urine culture with growth of >100k Proteus mirabilis * Final dose of Rocephin this evening. She will have completed 7 days. (4) C. difficile colitis: Code(s): A04.72 - Enterocolitis due to Clostridium difficile, not specified as recurrent Status: Acute Assessment and Plan: Patient complained of diarrhea for 3 days prior to presentation. C diff PCR is positive. Patient denies recent antibiotic use * Continue oral vancomycin * Having frequent watery brown stool. Stool output seems to be lessening * Lactulose on hold * Patient is afebrile without leukocytosis. * Continue probiotic and banatrol supplement * Continue with fecal tube due to frequent diarrhea and pain with rotation, patient unable to get up to the bathroom (5) Urinary retention: Code(s): R33.9 - Retention of urine, unspecified Status: Acute Assessment and Plan: Banuelos removed 11/17/21 * Patient was able to void once but subsequently was having decreased urine output. Bladder scan revealed >900 cc * Replaced Banuelos catheter 11/18/21 - RN noted that only 200 cc out, perhaps bladder scanner was picking up ascitic fluid from abdomen and patient in fact not retaining * Plan for repeat voiding trial with increased mobility * Continue tamsulosin * Plan for urology follow up if persists (6) Renal insufficiency: Code(s): N28.9 - Disorder of kidney and ureter, unspecified Status: Acute Assessment and Plan: Baseline is fluctuant. Appears to be around 1.1-1.4 * Creatinine slowly increasing up to 1.9 today * Will initiate gentle IV hydration given poor PO intake * Monitor BMP (7) Anemia: Code(s): D64.9 - Anemia, unspecified Status: Acute Assessment and Plan: Patient reports history of chronic anemia, looks to be due to iron deficiency * She has received a total of 2 units pRBC during admission to maintain Hgb >7.0 * Stool occult blood test positive * She has been seen in consultation by gastroenterology * Per GI, no need for further evaluation at this time. H&H consis
--- NOTE | 2021-11-19 14:34 | PM.IMPN ---
Progress Note: A&P Assessment and Plan (1) Fall: Code(s): W19.XXXA - Unspecified fall, initial encounter Status: Acute Assessment and Plan: Patient fell forward off the toilet and hit her head and then fell onto her left hip. Denied LOC. Fall precautions Head CT completed and showed no acute intracranial findings (2) Closed intertrochanteric fracture of left femur: Qualifiers: Encounter type: subsequent encounter Fracture alignment: displaced Fracture healing: with routine healing Qualified Code(s): S72.142D - Displaced intertrochanteric fracture of left femur, subsequent encounter for closed fracture with routine healing Code(s): S72.142A - Displaced intertrochanteric fracture of left femur, initial encounter for closed fracture Status: Acute Assessment and Plan: Secondary to fall as above Hip/pelvis x-ray showed comminuted intertrochanteric fracture of the left femur Appreciate orthopedic surgery consultation Underwent Gamma dona insertion of the left hip on 11/15/2021 Supportive care. Analgesics available as needed. Continue PT/OT. Making slow progress with therapy Not a candidate for pharmacologic DVT prophylaxis including subQ heparin or Lovenox due to thrombocytopenia (3) Urinary tract infection: Code(s): N39.0 - Urinary tract infection, site not specified Status: Acute Assessment and Plan: UA abnormal on presentation Patient asymptomatic Urine culture with growth of >100k Proteus mirabilis Final dose of Rocephin this evening. She will have completed 7 days. (4) C. difficile colitis: Code(s): A04.72 - Enterocolitis due to Clostridium difficile, not specified as recurrent Status: Acute Assessment and Plan: Patient complained of diarrhea for 3 days prior to presentation. C diff PCR is positive. Patient denies recent antibiotic use Continue oral vancomycin Having frequent watery brown stool. Stool output seems to be lessening Lactulose on hold Patient is afebrile without leukocytosis. Continue probiotic and banatrol supplement Continue with fecal tube due to frequent diarrhea and pain with rotation, patient unable to get up to the bathroom (5) Urinary retention: Code(s): R33.9 - Retention of urine, unspecified Status: Acute Assessment and Plan: Banuelos removed 11/17/21 Patient was able to void once but subsequently was having decreased urine output. Bladder scan revealed >900 cc Replaced Banuelos catheter 11/18/21 - RN noted that only 200 cc out, perhaps bladder scanner was picking up ascitic fluid from abdomen and patient in fact not retaining Plan for repeat voiding trial with increased mobility Continue tamsulosin Plan for urology follow up if persists (6) Renal insufficiency: Code(s): N28.9 - Disorder of kidney and ureter, unspecified Status: Acute Assessment and Plan: Baseline is fluctuant. Appears to be around 1.1-1.4 Creatinine slowly increasing up to 1.9 today Will initiate gentle IV hydration given poor PO intake Monitor BMP (7) Anemia: Code(s): D64.9 - Anemia, unspecified Status: Acute Assessment and Plan: Patient reports history of chronic anemia, looks to be due to iron deficiency She has received a total of 2 units pRBC during admission to maintain Hgb >7.0 Stool occult blood test positive She has been seen in consultation by gastroenterology Per GI, no need for further evaluation at this time. H&H consistent with baseline. Hemoglobin 8.1 today. 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 Monitor platelets Con
[2021-11-19 17:29] LABS: Glucose Point of Care 141 mg/dl (65-105)
[2021-11-19] MEDS: MORPHINE SULFATE (*CRX) 4 MG/ML INJ 3 MG IV PUSH (18:53)
[2021-11-19 19:48] VITALS: BP 98/74; PULSE 64; RESP 20; TEMP 35.9; O2SAT 98
[2021-11-19] MEDS: MELATONIN 3 MG TABLET 6 MG PO (22:18)
[2021-11-20 01:26] LABS: Glucose Point of Care 146 mg/dl (65-105)
[2021-11-20] MEDS: SODIUM CHLORIDE 0.9% IV 1,000 ML 75 ML IV CONT ×2 (01:30→16:01)
[2021-11-20 03:59] VITALS: BP 114/50; PULSE 65; RESP 20; TEMP 36; O2SAT 98
[2021-11-20] MEDS: MORPHINE SULFATE (*CRX) 4 MG/ML INJ 3 MG IV PUSH (04:26)
[2021-11-20 05:21] LABS: Hematocrit 25.7 % (37.0-47.0); Immature Platelet Fraction Pct 3.8 % (0.9-11.2); Mean Corpuscular HGB Conc 31.1 g/dl (32-36); Mean Corpuscular Volume 99.6 fl (80-100); Mean Platelet Volume 11.5 fl (7.4-10.4); Platelet Count Result 49 k/mm3 (150-375); Red Blood Count 2.58 M/mm3 (4.2-5.4); Red Cell Distribution Width 18.3 % (11.5-14.5); White Blood Count 6.6 K/mm3 (4.5-10.0)
[2021-11-20 05:37] LABS: Anion Gap 4 mmol/L (8-16); Blood Urea Nitrogen 40 mg/dL (7-17); Calcium 7.9 mg/dL (8.4-10.2); Carbon Dioxide 23 mmol/L (22-30); Chloride 105 mmol/L (98-107); Estimated CRCL calculation 19 ml/min; Estimated Glomerular Filt Rate 24; Glucose 134 mg/dL (65-110); Potassium 4.4 mmol/L (3.4-5.0); Sodium 132 mmol/L (137-145)
[2021-11-20] MEDS: VANCOMYCIN ORAL 125 MG/2.5 ML SYRUP PO ×3 (06:30→17:43)
[2021-11-20] MEDS: oxyCODONE HCL (*CRX) 5 MG TAB IR PO ×3 (06:32→17:43)
[2021-11-20] MEDS: LEVOTHYROXINE SODIUM 150 MCG TABLET PO (06:34)
[2021-11-20 07:27] LABS: Glucose Point of Care 124 mg/dl (65-105)
--- NOTE | 2021-11-20 07:30 | PM.IMPN ---
Progress Note: A&P Assessment and Plan (1) Renal insufficiency: Code(s): N28.9 - Disorder of kidney and ureter, unspecified Status: Acute Assessment and Plan: Creatinine is worsening Baseline is fluctuant. Appears to be around 1.1-1.4 Creatinine slowly increasing up to 2.0 today Will initiate gentle IV hydration given poor PO intake Trend labs Furosemide on hold for now, trend to see if labs improve (2) Fall: Code(s): W19.XXXA - Unspecified fall, initial encounter Status: Acute Assessment and Plan: Reported fall off the toilet and hit her head and left hip. Hip and pelvis xray showed Comminuted intertrochanteric fracture of the left femur Ortho consulted Repair was performed on 11/15/[address] completed and showed no acute intracranial findings (3) Closed intertrochanteric fracture of left femur: Qualifiers: Encounter type: subsequent encounter Fracture alignment: displaced Fracture healing: with routine healing Qualified Code(s): S72.142D - Displaced intertrochanteric fracture of left femur, subsequent encounter for closed fracture with routine healing Code(s): S72.142A - Displaced intertrochanteric fracture of left femur, initial encounter for closed fracture Status: Acute Assessment and Plan: Secondary to fall as above Hip/pelvis x-ray showed comminuted intertrochanteric fracture of the left femur Orthopedic consult Underwent Gamma dona insertion of the left hip on 11/15/2021 Ortho to manage post op care Supportive care. Analgesics and antiemetics available as needed. Continue PT/OT. Making slow progress with therapy Not a candidate for pharmacologic DVT prophylaxis including subQ heparin or Lovenox due to thrombocytopenia (4) Urinary tract infection: Code(s): N39.0 - Urinary tract infection, site not specified Status: Acute Assessment and Plan: UA abnormal on presentation Patient asymptomatic Urine culture with growth of >100k Proteus mirabilis completed 7 days of Rocephin Education about good venancio care, and avoiding diaper and pad use (5) C. difficile colitis: Code(s): A04.72 - Enterocolitis due to Clostridium difficile, not specified as recurrent Status: Acute Assessment and Plan: Diarrhea for 3 days prior to presentation C diff PCR is positive Denies recent antibiotic use Continue oral vancomycin Having frequent watery brown stool. Stool output seems to be lessening Lactulose on hold Patient is afebrile without leukocytosis. Continue probiotic and banatrol supplement DC fecal tube, this should help to motivate patient to move around more (6) Urinary retention: Code(s): R33.9 - Retention of urine, unspecified Status: Acute Assessment and Plan: Banuelos removed 11/17/21, and replaced on 11/18/21, removed again on 11/20/21 Post residual void Patient was able to void once but subsequently was having decreased urine output. Bladder scan revealed >900 cc Plan for repeat voiding trial with increased mobility Continue tamsulosin Plan for urology follow up if persists (7) Anemia: Code(s): D64.9 - Anemia, unspecified Status: Acute Assessment and Plan: History of chronic anemia, looks to be due to iron deficiency She has received a total of 2 units pRBC during admission to maintain Hgb >7.0 Anemia lab: Iron 43, TIBC 203, % sat 21, Transferrin 123, Ferritin 57.70, B12 967, Folate 7.1 and TSH 0.514 Stool occult blood test positive She has been seen in consultation by gastroenterology Per GI, no need for further evaluation at this time. H&H consistent with baseline. Hemoglobin 8.0 today. 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
--- NOTE | 2021-11-20 07:30 | P.PNIM_ITS ---
Progress Note: A&P Assessment and Plan (1) Renal insufficiency: Code(s): N28.9 - Disorder of kidney and ureter, unspecified Status: Acute Assessment and Plan: * Creatinine is worsening * Baseline is fluctuant. Appears to be around 1.1-1.4 * Creatinine slowly increasing up to 2.0 today * Will initiate gentle IV hydration given poor PO intake * Trend labs * Furosemide on hold for now, trend to see if labs improve (2) Fall: Code(s): W19.XXXA - Unspecified fall, initial encounter Status: Acute Assessment and Plan: * Reported fall off the toilet and hit her head and left hip. * Hip and pelvis xray showed Comminuted intertrochanteric fracture of the left femur * Ortho consulted * Repair was performed on 11/15/21 * Fall precautions * Head CT completed and showed no acute intracranial findings (3) Closed intertrochanteric fracture of left femur: Qualifiers: Encounter type: subsequent encounter Fracture alignment: displaced Fracture healing: with routine healing Qualified Code(s): S72.142D - Displaced intertrochanteric fracture of left femur, subsequent encounter for closed fract ure with routine healing Code(s): S72.142A - Displaced intertrochanteric fracture of left femur, initial encounter for closed fracture Status: Acute Assessment and Plan: * Secondary to fall as above * Hip/pelvis x-ray showed comminuted intertrochanteric fracture of the left femur * Orthopedic consult * Underwent Gamma dona insertion of the left hip on 11/15/2021 * Ortho to manage post op care * Supportive care. Analgesics and antiemetics available as needed. * Continue PT/OT. Making slow progress with therapy * Not a candidate for pharmacologic DVT prophylaxis including subQ heparin or Lovenox due to thrombocytopenia (4) Urinary tract infection: Code(s): N39.0 - Urinary tract infection, site not specified Status: Acute Assessment and Plan: * UA abnormal on presentation * Patient asymptomatic * Urine culture with growth of >100k Proteus mirabilis * completed 7 days of Rocephin * Education about good venancio care, and avoiding diaper and pad use (5) C. difficile colitis: Code(s): A04.72 - Enterocolitis due to Clostridium difficile, not specified as recurrent Status: Acute Assessment and Plan: * Diarrhea for 3 days prior to presentation * C diff PCR is positive * Denies recent antibiotic use * Continue oral vancomycin * Having frequent watery brown stool. Stool output seems to be lessening * Lactulose on hold * Patient is afebrile without leukocytosis. * Continue probiotic and banatrol supplement * DC fecal tube, this should help to motivate patient to move around more (6) Urinary retention: Code(s): R33.9 - Retention of urine, unspecified Status: Acute Assessment and Plan: * Banuelos removed 11/17/21, and replaced on 11/18/21, removed again on 11/20/21 * Post residual void * Patient was able to void once but subsequently was having decreased urine output. Bladder scan revealed >900 cc * Plan for repeat voiding trial with increased mobility * Continue tamsulosin * Plan for urology follow up if persists (7) Anemia: Code(s): D64.9 - Anemia, unspecified Status: Acute Assessment and Plan: * History of chronic anemia, looks to be due to iron deficiency * She has received a total of 2 units pRBC during admission to maintain Hgb >7.0 * Anemia lab: Iron 43, TIBC 203, % sat
[2021-11-20 07:49] LABS: Immature Reticulocyte Fraction 12.9 % (3.0-15.9); Reticulocyte Hemoglobin Conten 40.4 pg (28.2-35.7); Reticulocyte Percent 5.41 % (0.7-4.3); Reticulocytes Absolute 0.14 B/L (32.2-175.7)
[2021-11-20 08:09] LABS: Transferrin 123 mg/dL (206-381)
[2021-11-20 08:32] VITALS: PULSE 60
[2021-11-20] MEDS: PANTOPRAZOLE 40 MG TABLET PO (08:32)
[2021-11-20] MEDS: FERROUS SULFATE 324 MG TABLET PO ×2 (08:32→17:43)
[2021-11-20] MEDS: CHOLECALCIFEROL 1,000 UNITS TABLET 5000 UNITS PO (08:32)
[2021-11-20] MEDS: PROPRANOLOL HCL 10 MG TABLET PO ×2 (08:32→21:27)
[2021-11-20] MEDS: FLUTICASONE PROPIONATE 0.05% NA SPR 16 GM BTL (*BKC) 1 SPRAY NASAL (08:32)
[2021-11-20] MEDS: CELECOXIB 200 MG CAPSULE PO (08:32)
[2021-11-20] MEDS: TAMSULOSIN HCL 0.4 MG CAPSULE PO (08:33)
[2021-11-20] MEDS: SPIRONOLACTONE 50 MG TABLET 100 MG PO (08:33)
[2021-11-20] MEDS: SACCHAROMYCES BOULARDII 250 MG CAPSULE PO ×2 (08:33→17:43)
[2021-11-20] MEDS: TOLNAFTATE 1% POWDER 45 GM BTL 1 APPLIC TOPICAL ×2 (08:33→21:27)
[2021-11-20] MEDS: HYDROcodone/acetaminophen (*CRX) 5-325 MG TABLET 1 TAB PO (08:33)
[2021-11-20 08:56] LABS: Thyroid Stimulating Hormone Reflex 0.514 uIU/mL (0.465-4.68)
[2021-11-20 09:06] LABS: Folic Acid 7.1 ng/mL (2.76->20)
[2021-11-20 10:02] LABS: Iron 43 ug/dL (37-170); Percent Iron Saturation 21 % (20-50)
[2021-11-20 12:05] LABS: Glucose Point of Care 119 mg/dl (65-105)
[2021-11-20] MEDS: HYDROmorphone HCL INJ (*CRX) 1 MG/ML SYR 0.5 MG IV PUSH (16:00)
[2021-11-20 17:04] LABS: Glucose Point of Care 132 mg/dl (65-105)
[2021-11-20 21:27] VITALS: PULSE 61
[2021-11-20] MEDS: MELATONIN 3 MG TABLET 6 MG PO (21:27)
[2021-11-20 21:38] LABS: Glucose Point of Care 128 mg/dl (65-105)
[2021-11-20 22:00] VITALS: BP 120/63; PULSE 61; RESP 18; TEMP 36.8; O2SAT 97
[2021-11-21] VITALS (9 sets, daily range): BP systolic 108–130; BP diastolic 43–58; PULSE 57–72; RESP 18–28; TEMP 35.9–36.5; O2SAT 94–98
[2021-11-21] MEDS: oxyCODONE HCL (*CRX) 5 MG TAB IR PO ×3 (00:34→14:30)
[2021-11-21] MEDS: SODIUM CHLORIDE 0.9% IV 1,000 ML 75 ML IV CONT (00:34)
[2021-11-21] MEDS: VANCOMYCIN ORAL 125 MG/2.5 ML SYRUP PO ×4 (00:34→18:29)
[2021-11-21] MEDS: LEVOTHYROXINE SODIUM 150 MCG TABLET PO (05:39)
[2021-11-21 06:17] LABS: Basophils Percent Auto 0.7 % (0.2-1.2); Eosinophils Absolute Auto 0.2 K/mm3 (0-0.3); Eosinophils Percent Auto 3.4 % (0-4.4); Hemoglobin 8.2 g/dL (12.0-15.0); Immature Granulocyte Absolute 0.07 K/mm3 (0.00-0.031); Immature Granulocyte Percent A 1.3 % (0-0.5); Immature Platelet Fraction Pct 4.1 % (0.9-11.2); Lymphocytes Absolute Auto 0.68 K/mm3 (0.9-3.2); Lymphocytes Percent Auto 12.1 % (18.3-44.2); Mean Corpuscular HGB Conc 31.5 g/dl (32-36); Mean Corpuscular Hemoglobin 31.2 pg (26-34); Mean Corpuscular Volume 98.9 fl (80-100); Mean Platelet Volume 10.5 fl (7.4-10.4); Monocytes Absolute Auto 0.5 K/mm3 (0.1-0.6); Monocytes Percent Auto 8.6 % (2.6-8.5); Neutrophils Absolute Auto 4.1 K/mm3 (1.3-6.7); Neutrophils Percent Auto 73.9 % (45.5-73.1); Platelet Count Result 48 k/mm3 (150-375); Red Blood Count 2.63 M/mm3 (4.2-5.4); Red Cell Distribution Width 18.9 % (11.5-14.5); White Blood Count 5.6 K/mm3 (4.5-10.0)
[2021-11-21 06:29] LABS: Albumin Level 2.1 g/dL (3.5-5.1); Alkaline Phosphatase 120 U/L (38-126); Anion Gap 1 mmol/L (8-16); Aspartate Amino Transferase 20 U/L (14-36); Bilirubin,Total 1.6 mg/dL (0.2-1.3); Blood Urea Nitrogen 42 mg/dL (7-17); Calcium 7.8 mg/dL (8.4-10.2); Carbon Dioxide 21 mmol/L (22-30); Chloride 108 mmol/L (98-107); Estimated CRCL calculation 20 ml/min; Estimated Glomerular Filt Rate 26; Glucose 99 mg/dL (65-110); Magnesium 2.1 mg/dL (1.6-2.3); Potassium 4.5 mmol/L (3.4-5.0); Sodium 130 mmol/L (137-145)
[2021-11-21 07:24] LABS: Alanine Aminotransferase < 4 U/L (4-35)
--- NOTE | 2021-11-21 07:30 | P.PNIM_ITS ---
Progress Note: A&P Assessment and Plan (1) Renal insufficiency: Code(s): N28.9 - Disorder of kidney and ureter, unspecified Status: Acute Assessment and Plan: * Creatinine is trending down * Baseline is fluctuant. Appears to be around 1.1-1.4 * Creatinine 1.90 today * Stopped IV fluids for now * Trend labs * Furosemide on hold for now, trend to see if labs improve (2) Fall: Code(s): W19.XXXA - Unspecified fall, initial encounter Status: Acute Assessment and Plan: * Reported fall off the toilet and hit her head and left hip. * Hip and pelvis xray showed Comminuted intertrochanteric fracture of the left femur * Ortho consulted * Repair was performed on 11/15/21 * Fall precautions * Head CT completed and showed no acute intracranial findings (3) Closed intertrochanteric fracture of left femur: Qualifiers: Encounter type: subsequent encounter Fracture alignment: displaced Fracture healing: with routine healing Qualified Code(s): S72.142D - Displaced intertrochanteric fracture of left femur, subsequent encounter for closed fracture with routine healing Code(s): S72.142A - Displaced intertrochanteric fracture of left femur, initial encounter for closed fracture Status: Acute Assessment and Plan: * Secondary to fall as above * Hip/pelvis x-ray showed comminuted intertrochanteric fracture of the left femur * Orthopedic consult * Underwent Gamma dona insertion of the left hip on 11/15/2021 * Ortho to manage post op care * Supportive care. Analgesics and antiemetics available as needed. * Continue PT/OT. Making slow progress with therapy * Not a candidate for pharmacologic DVT prophylaxis including subQ heparin or Lovenox due to thrombocytopenia (4) Urinary tract infection: Code(s): N39.0 - Urinary tract infection, site not specified Status: Acute Assessment and Plan: * Resolved * UA abnormal on presentation * Patient asymptomatic * Urine culture with growth of >100k Proteus mirabilis * completed 7 days of Rocephin * Education about good venancio care, and avoiding diaper and pad use (5) C. difficile colitis: Code(s): A04.72 - Enterocolitis due to Clostridium difficile, not specified as recurrent Status: Acute Assessment and Plan: * Diarrhea for 3 days prior to presentation * C diff PCR is positive * Denies recent antibiotic use * Continue oral vancomycin day 6 * Having frequent watery brown stool. Stool output is more formed, and normal * Lactulose on hold * Patient is afebrile without leukocytosis. * Continue probiotic and banatrol supplement * DC fecal tube, this should help to motivate patient to move around more (6) Urinary retention: Code(s): R33.9 - Retention of urine, unspecified Status: Acute Assessment and Plan: * Banuelos removed 11/17/21, and replaced on 11/18/21, removed again on 11/20/21 * Post residual void, probably skewed due to ascites * Patient was able to void once but subsequently was having decreased urine output. Bladder scan revealed >900 cc * Plan for repeat voiding trial with increased mobility * Continue tamsulosin * Plan for urology follow up if persists (7) Anemia: Code(s): D64.9 - Anemia, unspecified Status: Acute Assessment and Plan: * History of chronic anemia, looks to be due to iron deficiency * She has received a total of 2 units pRBC during admission to maintain
--- NOTE | 2021-11-21 07:30 | PM.IMPN ---
Progress Note: A&P Assessment and Plan (1) Renal insufficiency: Code(s): N28.9 - Disorder of kidney and ureter, unspecified Status: Acute Assessment and Plan: Creatinine is trending down Baseline is fluctuant. Appears to be around 1.1-1.4 Creatinine 1.90 today Stopped IV fluids for now Trend labs Furosemide on hold for now, trend to see if labs improve (2) Fall: Code(s): W19.XXXA - Unspecified fall, initial encounter Status: Acute Assessment and Plan: Reported fall off the toilet and hit her head and left hip. Hip and pelvis xray showed Comminuted intertrochanteric fracture of the left femur Ortho consulted Repair was performed on 11/15/[address] completed and showed no acute intracranial findings (3) Closed intertrochanteric fracture of left femur: Qualifiers: Encounter type: subsequent encounter Fracture alignment: displaced Fracture healing: with routine healing Qualified Code(s): S72.142D - Displaced intertrochanteric fracture of left femur, subsequent encounter for closed fracture with routine healing Code(s): S72.142A - Displaced intertrochanteric fracture of left femur, initial encounter for closed fracture Status: Acute Assessment and Plan: Secondary to fall as above Hip/pelvis x-ray showed comminuted intertrochanteric fracture of the left femur Orthopedic consult Underwent Gamma dona insertion of the left hip on 11/15/2021 Ortho to manage post op care Supportive care. Analgesics and antiemetics available as needed. Continue PT/OT. Making slow progress with therapy Not a candidate for pharmacologic DVT prophylaxis including subQ heparin or Lovenox due to thrombocytopenia (4) Urinary tract infection: Code(s): N39.0 - Urinary tract infection, site not specified Status: Acute Assessment and Plan: Resolved UA abnormal on presentation Patient asymptomatic Urine culture with growth of >100k Proteus mirabilis completed 7 days of Rocephin Education about good venancio care, and avoiding diaper and pad use (5) C. difficile colitis: Code(s): A04.72 - Enterocolitis due to Clostridium difficile, not specified as recurrent Status: Acute Assessment and Plan: Diarrhea for 3 days prior to presentation C diff PCR is positive Denies recent antibiotic use Continue oral vancomycin day 6 Having frequent watery brown stool. Stool output is more formed, and normal Lactulose on hold Patient is afebrile without leukocytosis. Continue probiotic and banatrol supplement DC fecal tube, this should help to motivate patient to move around more (6) Urinary retention: Code(s): R33.9 - Retention of urine, unspecified Status: Acute Assessment and Plan: Banuelos removed 11/17/21, and replaced on 11/18/21, removed again on 11/20/21 Post residual void, probably skewed due to ascites Patient was able to void once but subsequently was having decreased urine output. Bladder scan revealed >900 cc Plan for repeat voiding trial with increased mobility Continue tamsulosin Plan for urology follow up if persists (7) Anemia: Code(s): D64.9 - Anemia, unspecified Status: Acute Assessment and Plan: History of chronic anemia, looks to be due to iron deficiency She has received a total of 2 units pRBC during admission to maintain Hgb >7.0 Anemia lab: Iron 43, TIBC 203, % sat 21, Transferrin 123, Ferritin 57.70, B12 967, Folate 7.1 and TSH 0.514 Stool occult blood test positive She has been seen in consultation by gastroenterology Per GI, no need for further evaluation at this time. H&H consistent with baseline. Hemoglobin 8.2 today. 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
[2021-11-21 07:42] LABS: Glucose Point of Care 99 mg/dl (65-105)
[2021-11-21] MEDS: SPIRONOLACTONE 50 MG TABLET 100 MG PO (08:46)
[2021-11-21] MEDS: CHOLECALCIFEROL 1,000 UNITS TABLET 5000 UNITS PO (08:47)
[2021-11-21] MEDS: PANTOPRAZOLE 40 MG TABLET PO (08:47)
[2021-11-21] MEDS: FERROUS SULFATE 324 MG TABLET PO ×2 (08:47→16:32)
[2021-11-21] MEDS: PROPRANOLOL HCL 10 MG TABLET PO ×2 (08:47→20:46)
[2021-11-21] MEDS: TAMSULOSIN HCL 0.4 MG CAPSULE PO (08:47)
[2021-11-21] MEDS: SACCHAROMYCES BOULARDII 250 MG CAPSULE PO ×2 (08:47→16:32)
[2021-11-21] MEDS: CELECOXIB 200 MG CAPSULE PO (08:47)
[2021-11-21] MEDS: FLUTICASONE PROPIONATE 0.05% NA SPR 16 GM BTL (*BKC) 1 SPRAY NASAL (08:49)
[2021-11-21] MEDS: TOLNAFTATE 1% POWDER 45 GM BTL 1 APPLIC TOPICAL ×2 (08:57→20:46)
[2021-11-21 08:59] LABS: Platelet Estimate Decreased (Adequate)
--- NOTE | 2021-11-21 09:13 | PM.PNORT ---
Progress Note: A&P Assessment and Plan (1) Closed intertrochanteric fracture of left femur: Qualifiers: Encounter type: subsequent encounter Fracture alignment: displaced Fracture healing: with routine healing Qualified Code(s): S72.142D - Displaced intertrochanteric fracture of left femur, subsequent encounter for closed fracture with routine healing Code(s): S72.142A - Displaced intertrochanteric fracture of left femur, initial encounter for closed fracture Status: Acute Assessment and Plan: POD #6: Left hip intramedullary nail. Continue PT/OT. WBAT. Walker. HIGH FALL RISK. Continue pain control. Ice hip. Protect skin. SCDs. Incentive Spirometry Use reviewed. Monitor Dressing. Change daily. Dispo:SNF when medically stable. Follow up appointment arranged. (2) C. difficile colitis: Code(s): A04.72 - Enterocolitis due to Clostridium difficile, not specified as recurrent Status: Acute Assessment and Plan: Patient on contact isolation. Subjective Subjective Date/Time Seen: 11/21/21 09:13 Interval history: POD#5: Left IT Fracture Continued left hip/thigh pain. Also reports generalized body pain. No other concerns. Review of Systems Review of Systems: All systems reviewed & are unremarkable except as noted in HPI and below Exam Const: General: No in distress or confusion Orientation/consciousness: patient oriented x3 and No confusion HENMT: Head: normal to inspection, normocephalic and atraumatic Eyes: Conjunctivae: conjunctivae normal Sclera: sclerae normal Resp: Effort & Inspection: normal respiratory effort and no audible wheezes Neuro: General: patient oriented x3 and No confusion Extrem: Left lower extremity: hip/thigh Details: tenderness Location: of the hip Location: laterally and anteriorly, swelling Location: of the hip ( Mild, muscle compartments soft) and other ( incisions covered. Mild serous drainage.) and foot Details: vascular exam Details: dorsalis pedis pulse present and normal capillary refill, tendon exam active flexion normal and active extension normal and motor-sensory exam light-touch normal in all toes Psych: Affect: normal affect Objective Data Vital Signs Vital Signs: Vital Signs - 24 hr 11/20/21 21:27 11/20/21 22:00 11/21/21 02:00 Temperature 36.8 C 36.5 C Pulse Rate 61 61 60 Respiratory Rate 18 20 Blood Pressure 120/63 113/43 L Pulse Oximetry 97 98 11/21/21 06:00 11/21/21 08:47 Temperature 36.2 C L Pulse Rate 57 L 68 Respiratory Rate 18 Blood Pressure 109/55 L Pulse Oximetry 96 Intake/Output Intake/Output: Intake & Output 11/18/21 11/19/21 11/20/21 11/21/21 23:59 23:59 23:59 23:59 Intake Total 387 463 0322 1250 Output Total 700 400 300 500 Balance 592 560 7405 750 Meds/Results Medications: Active Medications Generic Name Dose Route Start Last Admin Trade Name Freq PRN Reason Stop Dose Admin Acetaminophen 500 mg 11/15/21 17:31 11/17/21 09:34 Acetaminophen 500 Mg Tablet PO 500 mg Q6H PRN Administration Pain (Scale Score 1-3)or fever Hydrocodone Bitart/Acetaminophen 1 tab 11/21/21 09:03 Hydrocodone/Acetaminophen (*Crx) 5-325 Mg Tablet PO Q6H PRN Pain Rated 4-6 Celecoxib 200 mg 11/16/21 08:00 11/21/21 08:47 Celecoxib 200 Mg Capsule PO 200 mg DAILY@0800 SHERRILL Administration Dextrose 12.5 gm 11/14/21 15:58 Dextrose 50% 25 Gm/50 Ml Syringe IV PUSH PRN PRN Hypoglycemia Protocol Diazepam 5 mg 11/15/21 17:31 Diazepam (*Crx) 5 Mg Tablet PO Q8H PRN Muscle Spasm Ferrous Sulfate 324 mg 11/14/21 09:00 11/21/21 08:47 Ferrous Sulfate 324 Mg Tablet PO 324 mg BIDWM SHERRILL Administration Fluticasone Propionate 1 spray 11/14/21 09:00 11/21/21 08:49 Fluticasone Propionate 0.05% Na Spr 16 Gm Btl (*Bkc) NASAL 1 spray DAILY SHERRILL Administration Furosemide 60 mg 11/14/21 09:00 11/19/21 08:03 Fur
[2021-11-21] MEDS: HYDROcodone/acetaminophen (*CRX) 5-325 MG TABLET 1 TAB PO ×2 (09:14→18:11)
[2021-11-21] MEDS: MORPHINE SULFATE (*CRX) 4 MG/ML INJ 3 MG IV PUSH (10:40)
--- NOTE | 2021-11-21 11:11 | PCPTNOTE ---
Attempted to see patient two times this A.M. at 10:39 and 11:09, patient refused both times to attempt transfers to chair and participate with PT due to pain. RN aware and patient has had pain medication.
[2021-11-21 12:14] LABS: Glucose Point of Care 128 mg/dl (65-105)
[2021-11-21] MEDS: HYDROmorphone HCL INJ (*CRX) 1 MG/ML SYR 0.5 MG IV PUSH (12:44)
[2021-11-21 16:23] LABS: Glucose Point of Care 135 mg/dl (65-105)
[2021-11-21] MEDS: ACETAMINOPHEN 500 MG TABLET PO (18:11)
[2021-11-21] MEDS: MELATONIN 3 MG TABLET 6 MG PO (20:46)
[2021-11-21 21:34] LABS: Glucose Point of Care 135 mg/dl (65-105)
[2021-11-22] VITALS (9 sets, daily range): BP systolic 106–128; BP diastolic 48–62; PULSE 51–78; RESP 20–22; TEMP 35.6–36.6; O2SAT 94–98
[2021-11-22] MEDS: VANCOMYCIN ORAL 125 MG/2.5 ML SYRUP PO ×5 (00:06→23:17)
[2021-11-22] MEDS: oxyCODONE HCL (*CRX) 5 MG TAB IR PO ×2 (00:06→06:12)
[2021-11-22 05:48] LABS: Basophils Percent Auto 0.5 % (0.2-1.2); Eosinophils Absolute Auto 0.2 K/mm3 (0-0.3); Hematocrit 26.3 % (37.0-47.0); Hemoglobin 8.4 g/dL (12.0-15.0); Immature Granulocyte Absolute 0.04 K/mm3 (0.00-0.031); Immature Granulocyte Percent A 0.7 % (0-0.5); Immature Platelet Fraction Pct 3.9 % (0.9-11.2); Lymphocytes Absolute Auto 0.57 K/mm3 (0.9-3.2); Lymphocytes Percent Auto 9.5 % (18.3-44.2); Mean Corpuscular HGB Conc 31.9 g/dl (32-36); Mean Corpuscular Hemoglobin 31.2 pg (26-34); Mean Corpuscular Volume 97.8 fl (80-100); Mean Platelet Volume 12.3 fl (7.4-10.4); Monocytes Absolute Auto 0.6 K/mm3 (0.1-0.6); Monocytes Percent Auto 10.7 % (2.6-8.5); Neutrophils Absolute Auto 4.5 K/mm3 (1.3-6.7); Neutrophils Percent Auto 75.6 % (45.5-73.1); Platelet Count Result 49 k/mm3 (150-375); Red Blood Count 2.69 M/mm3 (4.2-5.4); Red Cell Distribution Width 19.3 % (11.5-14.5)
[2021-11-22 05:57] LABS: Albumin Level 2.2 g/dL (3.5-5.1); Alkaline Phosphatase 122 U/L (38-126); Anion Gap 4 mmol/L (8-16); Aspartate Amino Transferase 21 U/L (14-36); Bilirubin,Total 1.7 mg/dL (0.2-1.3); Blood Urea Nitrogen 45 mg/dL (7-17); Carbon Dioxide 20 mmol/L (22-30); Chloride 107 mmol/L (98-107); Estimated CRCL calculation 21 ml/min; Estimated Glomerular Filt Rate 28; Glucose 128 mg/dL (65-110); Magnesium 2.2 mg/dL (1.6-2.3); Potassium 4.8 mmol/L (3.4-5.0); Sodium 131 mmol/L (137-145)
[2021-11-22] MEDS: LEVOTHYROXINE SODIUM 150 MCG TABLET PO (06:12)
[2021-11-22 06:18] LABS: Alanine Aminotransferase < 6 U/L (4-35)
[2021-11-22 07:30] LABS: Glucose Point of Care 135 mg/dl (65-105)
[2021-11-22] MEDS: CHOLECALCIFEROL 1,000 UNITS TABLET 5000 UNITS PO (08:39)
[2021-11-22] MEDS: PROPRANOLOL HCL 10 MG TABLET PO (08:39)
[2021-11-22] MEDS: SPIRONOLACTONE 50 MG TABLET 100 MG PO (08:39)
[2021-11-22] MEDS: SACCHAROMYCES BOULARDII 250 MG CAPSULE PO ×2 (08:39→18:20)
[2021-11-22] MEDS: FERROUS SULFATE 324 MG TABLET PO ×2 (08:39→18:20)
[2021-11-22] MEDS: CELECOXIB 200 MG CAPSULE PO (08:40)
[2021-11-22] MEDS: PANTOPRAZOLE 40 MG TABLET PO (08:41)
[2021-11-22] MEDS: FLUTICASONE PROPIONATE 0.05% NA SPR 16 GM BTL (*BKC) 1 SPRAY NASAL (08:41)
[2021-11-22] MEDS: TOLNAFTATE 1% POWDER 45 GM BTL 1 APPLIC TOPICAL ×2 (08:44→19:54)
[2021-11-22 11:59] LABS: Glucose Point of Care 149 mg/dl (65-105)
--- NOTE | 2021-11-22 12:00 | PM.IMPN ---
Progress Note: A&P Assessment and Plan (1) Renal insufficiency: Code(s): N28.9 - Disorder of kidney and ureter, unspecified Status: Acute Assessment and Plan: Creatinine is trending down Baseline is fluctuant. Appears to be around 1.1-1.4 Creatinine 1.80 today Stopped IV fluids for now Trend labs Furosemide on hold for now, trend to see if labs improve (2) Fall: Code(s): W19.XXXA - Unspecified fall, initial encounter Status: Acute Assessment and Plan: Reported fall off the toilet and hit her head and left hip. Hip and pelvis xray showed Comminuted intertrochanteric fracture of the left femur Ortho consulted Repair was performed on 11/15/[address] completed and showed no acute intracranial findings (3) Closed intertrochanteric fracture of left femur: Qualifiers: Encounter type: subsequent encounter Fracture alignment: displaced Fracture healing: with routine healing Qualified Code(s): S72.142D - Displaced intertrochanteric fracture of left femur, subsequent encounter for closed fracture with routine healing Code(s): S72.142A - Displaced intertrochanteric fracture of left femur, initial encounter for closed fracture Status: Acute Assessment and Plan: Secondary to fall as above Hip/pelvis x-ray showed comminuted intertrochanteric fracture of the left femur Orthopedic consult Underwent Gamma dona insertion of the left hip on 11/15/2021 Ortho to manage post op care Supportive care. Analgesics and antiemetics available as needed. Continue PT/OT. Making slow progress with therapy Not a candidate for pharmacologic DVT prophylaxis including subQ heparin or Lovenox due to thrombocytopenia (4) Urinary tract infection: Code(s): N39.0 - Urinary tract infection, site not specified Status: Acute Assessment and Plan: Resolved UA abnormal on presentation Patient asymptomatic Urine culture with growth of >100k Proteus mirabilis completed 7 days of Rocephin Education about good venancio care, and avoiding diaper and pad use (5) C. difficile colitis: Code(s): A04.72 - Enterocolitis due to Clostridium difficile, not specified as recurrent Status: Acute Assessment and Plan: Diarrhea for 3 days prior to presentation C diff PCR is positive Denies recent antibiotic use Continue oral vancomycin day 8 Having frequent watery brown stool. Stool output is more formed, and normal Lactulose on hold Patient is afebrile without leukocytosis. Continue probiotic and banatrol supplement DC fecal tube, this should help to motivate patient to move around more (6) Urinary retention: Code(s): R33.9 - Retention of urine, unspecified Status: Acute Assessment and Plan: Banuelos removed 11/17/21, and replaced on 11/18/21, removed again on 11/20/21 Post residual void, probably skewed due to ascites Patient was able to void once but subsequently was having decreased urine output. Bladder scan revealed >900 cc Plan for repeat voiding trial with increased mobility Continue tamsulosin Plan for urology follow up if persists (7) Anemia: Code(s): D64.9 - Anemia, unspecified Status: Acute Assessment and Plan: History of chronic anemia, looks to be due to iron deficiency She has received a total of 2 units pRBC during admission to maintain Hgb >7.0 Anemia lab: Iron 43, TIBC 203, % sat 21, Transferrin 123, Ferritin 57.70, B12 967, Folate 7.1 and TSH 0.514 Stool occult blood test positive She has been seen in consultation by gastroenterology Per GI, no need for further evaluation at this time. H&H consistent with baseline. Hemoglobin 8.4 today. 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
--- NOTE | 2021-11-22 12:00 | PCNFU ---
Nutrition Follow-Up Complete: Unintentional weight loss related to reduced appetite and intake as evidenced by pt report of 15# wt loss x 3 months due to poor appetite. Goal: Increase po intake, greater than or equal to 50% of meals. Pt is not progressing towards goal. Pt current nutrition is diabetic consistent carbohydrate diet with glucerna TID and banatrol TID due to C Diff. Last recorded weight is 65 kg. Weight is stable. Bowel Motility: + BM 11/21/2021 Labs Reviewed: Hgb:8.4, Hct:26.3, Alb:2.2, Na:131, GFR:28, BUN:45, Cr: 1.8, Glu:128 Meds Noted: Vancomycin,Synthroid, Florastor,Vitamin-D, Protonix, Ferrous Sulfate, Novolog, Celebrex Skin: WNL Additional Notes: Spoke with nurse to complete follow-up. Pt intake is still low, 5% breakfast, 0% lunch, 30% dinner 11/21/2021. Nurse reported pt is consuming supplements TID: Glucerna: 220 kcals, 10 grams protein per shake, and Banatrol Plus with applesauce: 40 kcals per packet. Continue with current diabetic consistent carbohydrate diet. PO intake encouraged. Monitor intake of meals, wt, labs. Follow up in 3 days.
[2021-11-22] MEDS: oxyCODONE HCL (*CRX) 5 MG TAB IR 10 MG PO ×2 (12:09→16:04)
[2021-11-22] MEDS: TAMSULOSIN HCL 0.4 MG CAPSULE PO (12:09)
--- NOTE | 2021-11-22 12:48 | PCNSR ---
On 11/22/21, the student, Edith Zamora, provided care and completed [facility] documentation on this patient. I have reviewed the student's documentation and agree with the findings.
[2021-11-22 14:56] LABS: Immature Platelet Fraction Pct 3.8 % (0.9-11.2); Mean Platelet Volume 12.3 fl (7.4-10.4); Platelet Count Result 54 k/mm3 (150-375)
[2021-11-22 17:11] LABS: Glucose Point of Care 154 mg/dl (65-105)
[2021-11-22] MEDS: MELATONIN 3 MG TABLET 6 MG PO (19:54)
[2021-11-22 20:19] LABS: Glucose Point of Care 160 mg/dl (65-105)
[2021-11-23 03:35] VITALS: BP 118/56; PULSE 60; RESP 20; TEMP 36.2; O2SAT 95
[2021-11-23] MEDS: oxyCODONE HCL (*CRX) 5 MG TAB IR 10 MG PO ×2 (05:50→10:03)
[2021-11-23] MEDS: LEVOTHYROXINE SODIUM 150 MCG TABLET PO (05:50)
[2021-11-23] MEDS: VANCOMYCIN ORAL 125 MG/2.5 ML SYRUP PO ×3 (05:50→18:14)
[2021-11-23 06:02] LABS: Basophils Percent Auto 0.8 % (0.2-1.2); Eosinophils Absolute Auto 0.1 K/mm3 (0-0.3); Eosinophils Percent Auto 2.9 % (0-4.4); Hematocrit 27.1 % (37.0-47.0); Hemoglobin 8.6 g/dL (12.0-15.0); Immature Granulocyte Absolute 0.03 K/mm3 (0.00-0.031); Immature Granulocyte Percent A 0.6 % (0-0.5); Immature Platelet Fraction Pct 4.3 % (0.9-11.2); Lymphocytes Absolute Auto 0.51 K/mm3 (0.9-3.2); Lymphocytes Percent Auto 10.6 % (18.3-44.2); Mean Corpuscular HGB Conc 31.7 g/dl (32-36); Mean Corpuscular Hemoglobin 31.4 pg (26-34); Mean Corpuscular Volume 98.9 fl (80-100); Mean Platelet Volume 12.3 fl (7.4-10.4); Monocytes Absolute Auto 0.6 K/mm3 (0.1-0.6); Monocytes Percent Auto 12.1 % (2.6-8.5); Neutrophils Absolute Auto 3.5 K/mm3 (1.3-6.7); Platelet Count Result 48 k/mm3 (150-375); Red Blood Count 2.74 M/mm3 (4.2-5.4); Red Cell Distribution Width 19.9 % (11.5-14.5); White Blood Count 4.8 K/mm3 (4.5-10.0)
[2021-11-23 06:22] LABS: Albumin Level 2.1 g/dL (3.5-5.1); Alkaline Phosphatase 116 U/L (38-126); Anion Gap 4 mmol/L (8-16); Aspartate Amino Transferase 19 U/L (14-36); Bilirubin,Total 1.6 mg/dL (0.2-1.3); Blood Urea Nitrogen 47 mg/dL (7-17); Calcium 8.1 mg/dL (8.4-10.2); Carbon Dioxide 21 mmol/L (22-30); Chloride 107 mmol/L (98-107); Estimated CRCL calculation 20 ml/min; Estimated Glomerular Filt Rate 26; Glucose 134 mg/dL (65-110); Magnesium 2.3 mg/dL (1.6-2.3); Sodium 132 mmol/L (137-145)
[2021-11-23 06:32] LABS: Alanine Aminotransferase < 4 U/L (4-35)
[2021-11-23 06:57] LABS: Anisocytosis 1+ (NORMAL); Ovalocytes 1+ (NORMAL); Platelet Estimate Decreased (Adequate)
[2021-11-23 08:24] LABS: Glucose Point of Care 129 mg/dl (65-105)
[2021-11-23] MEDS: FERROUS SULFATE 324 MG TABLET PO ×2 (08:41→16:34)
[2021-11-23] MEDS: TAMSULOSIN HCL 0.4 MG CAPSULE PO (08:41)
[2021-11-23] MEDS: CELECOXIB 200 MG CAPSULE PO (08:41)
[2021-11-23] MEDS: CHOLECALCIFEROL 1,000 UNITS TABLET 5000 UNITS PO (08:41)
[2021-11-23 08:42] VITALS: PULSE 60
[2021-11-23] MEDS: SPIRONOLACTONE 50 MG TABLET 100 MG PO (08:42)
[2021-11-23] MEDS: PROPRANOLOL HCL 10 MG TABLET PO (08:42)
[2021-11-23] MEDS: TOLNAFTATE 1% POWDER 45 GM BTL 1 APPLIC TOPICAL ×2 (08:42→19:51)
[2021-11-23] MEDS: PANTOPRAZOLE 40 MG TABLET PO (08:42)
[2021-11-23] MEDS: FLUTICASONE PROPIONATE 0.05% NA SPR 16 GM BTL (*BKC) 1 SPRAY NASAL (08:42)
[2021-11-23] MEDS: SACCHAROMYCES BOULARDII 250 MG CAPSULE PO ×2 (08:42→16:34)
[2021-11-23] MEDS: FUROSEMIDE 20 MG TABLET 60 MG PO (11:07)
[2021-11-23] MEDS: HYDROmorphone HCL INJ (*CRX) 1 MG/ML SYR 0.5 MG IV PUSH (11:08)
--- NOTE | 2021-11-23 11:15 | PM.IMPN ---
Progress Note: A&P Assessment and Plan (1) Renal insufficiency: Code(s): N28.9 - Disorder of kidney and ureter, unspecified Status: Acute Assessment and Plan: Creatinine currently 1.90 Baseline is fluctuant. Appears to be around 1.1-1.4 Stopped IV fluids for now Trend labs Furosemide restarted to see if patient can tolerate it (2) Fall: Code(s): W19.XXXA - Unspecified fall, initial encounter Status: Acute Assessment and Plan: Reported fall off the toilet and hit her head and left hip. Hip and pelvis xray showed Comminuted intertrochanteric fracture of the left femur Ortho consulted Repair was performed on 11/15/[address] completed and showed no acute intracranial findings (3) Closed intertrochanteric fracture of left femur: Qualifiers: Encounter type: subsequent encounter Fracture alignment: displaced Fracture healing: with routine healing Qualified Code(s): S72.142D - Displaced intertrochanteric fracture of left femur, subsequent encounter for closed fracture with routine healing Code(s): S72.142A - Displaced intertrochanteric fracture of left femur, initial encounter for closed fracture Status: Acute Assessment and Plan: Secondary to fall as above Hip/pelvis x-ray showed comminuted intertrochanteric fracture of the left femur Orthopedic consult Underwent Gamma dona insertion of the left hip on 11/15/2021 Ortho to manage post op care Supportive care. Analgesics and antiemetics available as needed. Continue PT/OT. Making slow progress with therapy Not a candidate for pharmacologic DVT prophylaxis including subQ heparin or Lovenox due to thrombocytopenia (4) Urinary tract infection: Code(s): N39.0 - Urinary tract infection, site not specified Status: Acute Assessment and Plan: Resolved UA abnormal on presentation Patient asymptomatic Urine culture with growth of >100k Proteus mirabilis completed 7 days of Rocephin Education about good venancio care, and avoiding diaper and pad use (5) C. difficile colitis: Code(s): A04.72 - Enterocolitis due to Clostridium difficile, not specified as recurrent Status: Acute Assessment and Plan: Diarrhea for 3 days prior to presentation C diff PCR is positive Denies recent antibiotic use Continue oral vancomycin day 9 Having frequent watery brown stool. Stool output is more formed, and normal Lactulose on hold Patient is afebrile without leukocytosis. Continue probiotic and banatrol supplement DC fecal tube, this should help to motivate patient to move around more (6) Urinary retention: Code(s): R33.9 - Retention of urine, unspecified Status: Acute Assessment and Plan: Banuelos removed 11/17/21, and replaced on 11/18/21, removed again on 11/20/21 Post residual void, probably skewed due to ascites Patient was able to void once but subsequently was having decreased urine output. Bladder scan revealed >900 cc Plan for repeat voiding trial with increased mobility Continue tamsulosin Plan for urology follow up if persists (7) Anemia: Code(s): D64.9 - Anemia, unspecified Status: Acute Assessment and Plan: History of chronic anemia, looks to be due to iron deficiency She has received a total of 2 units pRBC during admission to maintain Hgb >7.0 Anemia lab: Iron 43, TIBC 203, % sat 21, Transferrin 123, Ferritin 57.70, B12 967, Folate 7.1 and TSH 0.514 Stool occult blood test positive She has been seen in consultation by gastroenterology Per GI, no need for further evaluation at this time. H&H consistent with baseline. Hemoglobin 8.6 today. 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
--- NOTE | 2021-11-23 11:15 | P.PNIM_ITS ---
Progress Note: A&P Assessment and Plan (1) Renal insufficiency: Code(s): N28.9 - Disorder of kidney and ureter, unspecified Status: Acute Assessment and Plan: * Creatinine currently 1.90 * Baseline is fluctuant. Appears to be around 1.1-1.4 * Stopped IV fluids for now * Trend labs * Furosemide restarted to see if patient can tolerate it (2) Fall: Code(s): W19.XXXA - Unspecified fall, initial encounter Status: Acute Assessment and Plan: * Reported fall off the toilet and hit her head and left hip. * Hip and pelvis xray showed Comminuted intertrochanteric fracture of the left femur * Ortho consulted * Repair was performed on 11/15/21 * Fall precautions * Head CT completed and showed no acute intracranial findings (3) Closed intertrochanteric fracture of left femur: Qualifiers: Encounter type: subsequent encounter Fracture alignment: displaced Fracture healing: with routine healing Qualified Code(s): S72.142D - Displaced intertrochanteric fracture of left femur, subsequent encounter for closed fracture with routine healing Code(s): S72.142A - Displaced intertrochanteric fracture of left femur, initial encounter for closed fracture Status: Acute Assessment and Plan: * Secondary to fall as above * Hip/pelvis x-ray showed comminuted intertrochanteric fracture of the left femur * Orthopedic consult * Underwent Gamma dona insertion of the left hip on 11/15/2021 * Ortho to manage post op care * Supportive care. Analgesics and antiemetics available as needed. * Continue PT/OT. Making slow progress with therapy * Not a candidate for pharmacologic DVT prophylaxis including subQ heparin or Lovenox due to thrombocytopenia (4) Urinary tract infection: Code(s): N39.0 - Urinary tract infection, site not specified Status: Acute Assessment and Plan: * Resolved * UA abnormal on presentation * Patient asymptomatic * Urine culture with growth of >100k Proteus mirabilis * completed 7 days of Rocephin * Education about good venancio care, and avoiding diaper and pad use (5) C. difficile colitis: Code(s): A04.72 - Enterocolitis due to Clostridium difficile, not specified as recurrent Status: Acute Assessment and Plan: * Diarrhea for 3 days prior to presentation * C diff PCR is positive * Denies recent antibiotic use * Continue oral vancomycin day 9 * Having frequent watery brown stool. Stool output is more formed, and normal * Lactulose on hold * Patient is afebrile without leukocytosis. * Continue probiotic and banatrol supplement * DC fecal tube, this should help to motivate patient to move around more (6) Urinary retention: Code(s): R33.9 - Retention of urine, unspecified Status: Acute Assessment and Plan: * Banuelos removed 11/17/21, and replaced on 11/18/21, removed again on 11/20/21 * Post residual void, probably skewed due to ascites * Patient was able to void once but subsequently was having decreased urine output. Bladder scan revealed >900 cc * Plan for repeat voiding trial with increased mobility * Continue tamsulosin * Plan for urology follow up if persists (7) Anemia: Code(s): D64.9 - Anemia, unspecified Status: Acute Assessment and Plan: * History of chronic anemia, looks to be due to iron deficiency * She has received a total of 2 units pRBC during admission to maintain Hgb >7.0
[2021-11-23 11:51] LABS: Glucose Point of Care 152 mg/dl (65-105)
[2021-11-23 16:52] LABS: Glucose Point of Care 144 mg/dl (65-105)
[2021-11-23] MEDS: MELATONIN 3 MG TABLET 6 MG PO (19:49)
[2021-11-23 19:50] VITALS: PULSE 92
[2021-11-23 20:22] LABS: Glucose Point of Care 147 mg/dl (65-105)
[2021-11-23 21:30] VITALS: BP 95/66; PULSE 60; RESP 20; TEMP 36.6; O2SAT 95
[2021-11-24] VITALS: BP 129/56; PULSE 62; RESP 22; TEMP 36.4; O2SAT 98
[2021-11-24] MEDS: oxyCODONE HCL (*CRX) 5 MG TAB IR PO (01:02)
[2021-11-24] MEDS: VANCOMYCIN ORAL 125 MG/2.5 ML SYRUP PO ×4 (01:03→17:38)
[2021-11-24] MEDS: diazePAM (*CRX) 5 MG TABLET PO (01:03)
[2021-11-24] MEDS: LEVOTHYROXINE SODIUM 150 MCG TABLET PO (05:54)
[2021-11-24 06:15] VITALS: BP 111/73; PULSE 68; RESP 14; TEMP 36.4; O2SAT 100
[2021-11-24] MEDS: oxyCODONE HCL (*CRX) 5 MG TAB IR 10 MG PO ×4 (06:15→20:18)
[2021-11-24 06:55] LABS: Basophils Percent Auto 0.5 % (0.2-1.2); Eosinophils Absolute Auto 0.2 K/mm3 (0-0.3); Eosinophils Percent Auto 3.3 % (0-4.4); Hematocrit 26.7 % (37.0-47.0); Hemoglobin 8.7 g/dL (12.0-15.0); Immature Granulocyte Absolute 0.02 K/mm3 (0.00-0.031); Immature Granulocyte Percent A 0.3 % (0-0.5); Lymphocytes Absolute Auto 0.57 K/mm3 (0.9-3.2); Lymphocytes Percent Auto 9.9 % (18.3-44.2); Mean Corpuscular HGB Conc 32.6 g/dl (32-36); Mean Corpuscular Volume 98.2 fl (80-100); Mean Platelet Volume 11.6 fl (7.4-10.4); Monocytes Absolute Auto 0.7 K/mm3 (0.1-0.6); Monocytes Percent Auto 12.8 % (2.6-8.5); Neutrophils Absolute Auto 4.2 K/mm3 (1.3-6.7); Neutrophils Percent Auto 73.2 % (45.5-73.1); Platelet Count Result 51 k/mm3 (150-375); Red Blood Count 2.72 M/mm3 (4.2-5.4); Red Cell Distribution Width 20.5 % (11.5-14.5); White Blood Count 5.8 K/mm3 (4.5-10.0)
[2021-11-24 06:58] LABS: Albumin Level 2.1 g/dL (3.5-5.1); Alkaline Phosphatase 125 U/L (38-126); Anion Gap 3 mmol/L (8-16); Aspartate Amino Transferase 20 U/L (14-36); Bilirubin,Total 2.2 mg/dL (0.2-1.3); Blood Urea Nitrogen 48 mg/dL (7-17); Calcium 8.2 mg/dL (8.4-10.2); Carbon Dioxide 20 mmol/L (22-30); Chloride 107 mmol/L (98-107); Estimated CRCL calculation 21 ml/min; Estimated Glomerular Filt Rate 28; Glucose 88 mg/dL (65-110); Magnesium 2.2 mg/dL (1.6-2.3); Potassium 5.3 mmol/L (3.4-5.0); Sodium 130 mmol/L (137-145)
[2021-11-24 06:59] LABS: Alanine Aminotransferase < 6 U/L (4-35)
[2021-11-24 08:07] LABS: Glucose Point of Care 94 mg/dl (65-105)
[2021-11-24] MEDS: FUROSEMIDE 20 MG TABLET 60 MG PO (08:35)
[2021-11-24] MEDS: SACCHAROMYCES BOULARDII 250 MG CAPSULE PO ×2 (08:35→16:40)
[2021-11-24] MEDS: CHOLECALCIFEROL 1,000 UNITS TABLET 5000 UNITS PO (08:35)
[2021-11-24] MEDS: TAMSULOSIN HCL 0.4 MG CAPSULE PO (08:36)
[2021-11-24] MEDS: FLUTICASONE PROPIONATE 0.05% NA SPR 16 GM BTL (*BKC) 1 SPRAY NASAL (08:36)
[2021-11-24] MEDS: CELECOXIB 200 MG CAPSULE PO (08:36)
[2021-11-24] MEDS: FERROUS SULFATE 324 MG TABLET PO ×2 (08:36→16:41)
[2021-11-24] MEDS: SPIRONOLACTONE 50 MG TABLET 100 MG PO (08:37)
[2021-11-24] MEDS: PANTOPRAZOLE 40 MG TABLET PO (08:37)
[2021-11-24 08:42] VITALS: PULSE 63
[2021-11-24] MEDS: PROPRANOLOL HCL 10 MG TABLET PO ×2 (08:42→20:18)
[2021-11-24] MEDS: TOLNAFTATE 1% POWDER 45 GM BTL 1 APPLIC TOPICAL ×2 (08:43→20:20)
[2021-11-24 08:44] VITALS: BP 123/58; PULSE 63; O2SAT 98
--- NOTE | 2021-11-24 10:45 | P.PNIM_ITS ---
Progress Note: A&P Assessment and Plan (1) Renal insufficiency: Code(s): N28.9 - Disorder of kidney and ureter, unspecified Status: Acute Assessment and Plan: * Creatinine currently 1.80 * Baseline is fluctuant. Appears to be around 1.1-1.4 * Stopped IV fluids for now * Trend labs * Continue Furosemide (2) Fall: Code(s): W19.XXXA - Unspecified fall, initial encounter Status: Acute Assessment and Plan: * Reported fall off the toilet and hit her head and left hip. * Hip and pelvis xray showed Comminuted intertrochanteric fracture of the left femur * Ortho consulted * Repair was performed on 11/15/21 * Fall precautions * Head CT completed and showed no acute intracranial findings (3) Closed intertrochanteric fracture of left femur: Qualifiers: Encounter type: subsequent encounter Fracture alignment: displaced Fracture healing: with routine healing Qualified Code(s): S72.142D - Displaced intertrochanteric fracture of left femur, subsequent encounter for closed fracture with routine healing Code(s): S72.142A - Displaced intertrochanteric fracture of left femur, initial encounter for closed fracture Status: Acute Assessment and Plan: * Secondary to fall as above * Hip/pelvis x-ray showed comminuted intertrochanteric fracture of the left femur * Orthopedic consult * Underwent Gamma dona insertion of the left hip on 11/15/2021 * Ortho to manage post op care * Supportive care. Analgesics and antiemetics available as needed. * Continue PT/OT. Making slow progress with therapy * Not a candidate for pharmacologic DVT prophylaxis including subQ heparin or Lovenox due to thrombocytopenia (4) Urinary tract infection: Code(s): N39.0 - Urinary tract infection, site not specified Status: Acute Assessment and Plan: * Resolved * UA abnormal on presentation * Patient asymptomatic * Urine culture with growth of >100k Proteus mirabilis * completed 7 days of Rocephin * Education about good venancio care, and avoiding diaper and pad use (5) C. difficile colitis: Code(s): A04.72 - Enterocolitis due to Clostridium difficile, not specified as recurrent Status: Acute Assessment and Plan: * Diarrhea for 3 days prior to presentation * C diff PCR is positive * Denies recent antibiotic use * Continue oral vancomycin day 10 * Having frequent watery brown stool. Stool output is more formed, and normal * Lactulose on hold * Patient is afebrile without leukocytosis. * Continue probiotic and banatrol supplement (6) Urinary retention: Code(s): R33.9 - Retention of urine, unspecified Status: Acute Assessment and Plan: * Resolved * Continue tamsulosin * Trend urine output (7) Anemia: Code(s): D64.9 - Anemia, unspecified Status: Acute Assessment and Plan: * Stable at this time, continue to trend * History of chronic anemia, looks to be due to iron deficiency * She has received a total of 2 units pRBC during admission to maintain Hgb >7.0 * Anemia lab: Iron 43, TIBC 203, % sat 21, Transferrin 123, Ferritin 57.70, B12 967, Folate 7.1 and TSH 0.514 * Hemoglobin 8.7 today. 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
[2021-11-24 11:36] LABS: Glucose Point of Care 117 mg/dl (65-105)
[2021-11-24 16:30] LABS: Glucose Point of Care 136 mg/dl (65-105)
[2021-11-24 19:36] VITALS: BP 118/45; PULSE 66; RESP 16; TEMP 36.5; O2SAT 95
[2021-11-24 20:18] VITALS: PULSE 80
[2021-11-24] MEDS: MELATONIN 3 MG TABLET 6 MG PO (20:18)
[2021-11-24 20:30] LABS: Glucose Point of Care 152 mg/dl (65-105)
[2021-11-25 00:06] VITALS: BP 114/52; PULSE 68; RESP 16; TEMP 36.4; O2SAT 98
[2021-11-25] MEDS: oxyCODONE HCL (*CRX) 5 MG TAB IR 10 MG PO (02:25)
[2021-11-25 04:29] VITALS: BP 135/50; PULSE 64; RESP 16; TEMP 36.5; O2SAT 96
[2021-11-25] MEDS: ACETAMINOPHEN 500 MG TABLET PO (04:58)
[2021-11-25] MEDS: diazePAM (*CRX) 5 MG TABLET PO (04:58)
[2021-11-25] MEDS: LEVOTHYROXINE SODIUM 150 MCG TABLET PO (04:59)
[2021-11-25 06:28] LABS: Basophils Percent Auto 0.6 % (0.2-1.2); Eosinophils Absolute Auto 0.2 K/mm3 (0-0.3); Hematocrit 26.8 % (37.0-47.0); Hemoglobin 8.6 g/dL (12.0-15.0); Immature Granulocyte Absolute 0.06 K/mm3 (0.00-0.031); Immature Platelet Fraction Pct 3.8 % (0.9-11.2); Lymphocytes Absolute Auto 0.58 K/mm3 (0.9-3.2); Lymphocytes Percent Auto 9.2 % (18.3-44.2); Mean Corpuscular HGB Conc 32.1 g/dl (32-36); Mean Corpuscular Hemoglobin 31.4 pg (26-34); Mean Corpuscular Volume 97.8 fl (80-100); Mean Platelet Volume 12.1 fl (7.4-10.4); Monocytes Absolute Auto 0.7 K/mm3 (0.1-0.6); Monocytes Percent Auto 11.1 % (2.6-8.5); Neutrophils Absolute Auto 4.7 K/mm3 (1.3-6.7); Neutrophils Percent Auto 75.1 % (45.5-73.1); Platelet Count Result 56 k/mm3 (150-375); Red Blood Count 2.74 M/mm3 (4.2-5.4); Red Cell Distribution Width 20.6 % (11.5-14.5); White Blood Count 6.3 K/mm3 (4.5-10.0)
[2021-11-25 06:42] LABS: Alanine Aminotransferase 6 U/L (6-35); Albumin Level 2.1 g/dL (3.5-5.1); Alkaline Phosphatase 132 U/L (38-126); Anion Gap 4 mmol/L (8-16); Aspartate Amino Transferase 21 U/L (14-36); Bilirubin,Total 2.1 mg/dL (0.2-1.3); Blood Urea Nitrogen 49 mg/dL (7-17); Calcium 8.4 mg/dL (8.4-10.2); Carbon Dioxide 21 mmol/L (22-30); Chloride 105 mmol/L (98-107); Estimated CRCL calculation 21 ml/min; Estimated Glomerular Filt Rate 28; Glucose 133 mg/dL (65-110); Magnesium 2.1 mg/dL (1.6-2.3); Potassium 5.1 mmol/L (3.4-5.0); Sodium 130 mmol/L (137-145)
[2021-11-25 07:57] LABS: Glucose Point of Care 127 mg/dl (65-105)
--- NOTE | 2021-11-25 08:29 | PCOTNOTE ---
Attempted to see patient this AM for OT. Patient asleep upon entry. Due to patient's likely discharge today, patient encouraged to participate in ADLs of bathing and/or dressing with patient refusing. Patient educated over discharge plan to go to rehab and for optimal benefits, patient should participate in therapy while hospitalized. Patient again refused. Patient notified that she may not be seen by OT prior to discharge if discharged today. Patient reports understanding. Will continue per plan of care.
--- NOTE | 2021-11-25 09:00 | PM.DS ---
DS: Admitting Diagnosis Discharge Date 11/25/21 0900 Admitting Diagnosis Acute hip fracture DS: Discharge Diagnosis Discharge Diagnosis (1) Renal insufficiency: Code(s): N28.9 - Disorder of kidney and ureter, unspecified Status: Acute Assessment and Plan: Creatinine currently 1.80 Baseline is fluctuant. Appears to be around 1.1-1.4 Stopped IV fluids for now Trend labs Continue Furosemide (2) Fall: Code(s): W19.XXXA - Unspecified fall, initial encounter Status: Acute Assessment and Plan: Reported fall off the toilet and hit her head and left hip. Hip and pelvis xray showed Comminuted intertrochanteric fracture of the left femur Ortho consulted Repair was performed on 11/15/[address] completed and showed no acute intracranial findings (3) Closed intertrochanteric fracture of left femur: Qualifiers: Encounter type: subsequent encounter Fracture alignment: displaced Fracture healing: with routine healing Qualified Code(s): S72.142D - Displaced intertrochanteric fracture of left femur, subsequent encounter for closed fracture with routine healing Code(s): S72.142A - Displaced intertrochanteric fracture of left femur, initial encounter for closed fracture Status: Acute Assessment and Plan: Secondary to fall as above Hip/pelvis x-ray showed comminuted intertrochanteric fracture of the left femur Orthopedic consult Underwent Gamma dona insertion of the left hip on 11/15/2021 Ortho to manage post op care Supportive care. Analgesics and antiemetics available as needed. Continue PT/OT. Making slow progress with therapy Not a candidate for pharmacologic DVT prophylaxis including subQ heparin or Lovenox due to thrombocytopenia (4) Urinary tract infection: Code(s): N39.0 - Urinary tract infection, site not specified Status: Acute Assessment and Plan: Resolved UA abnormal on presentation Patient asymptomatic Urine culture with growth of >100k Proteus mirabilis completed 7 days of Rocephin Education about good venancio care, and avoiding diaper and pad use (5) C. difficile colitis: Code(s): A04.72 - Enterocolitis due to Clostridium difficile, not specified as recurrent Status: Acute Assessment and Plan: Diarrhea for 3 days prior to presentation C diff PCR is positive Denies recent antibiotic use Continue oral vancomycin day 10 Having frequent watery brown stool. Stool output is more formed, and normal Lactulose on hold Patient is afebrile without leukocytosis. Continue probiotic and banatrol supplement (6) Urinary retention: Code(s): R33.9 - Retention of urine, unspecified Status: Acute Assessment and Plan: Resolved Continue tamsulosin Trend urine output (7) Anemia: Code(s): D64.9 - Anemia, unspecified Status: Acute Assessment and Plan: Stable at this time, continue to trend History of chronic anemia, looks to be due to iron deficiency She has received a total of 2 units pRBC during admission to maintain Hgb >7.0 Anemia lab: Iron 43, TIBC 203, % sat 21, Transferrin 123, Ferritin 57.70, B12 967, Folate 7.1 and TSH 0.514 Hemoglobin 8.7 today. 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 Monitor platelets Continue propranolol and spironolactone, furosemide Hold lactulose given persistent diarrhea (9) Uncontrolled pain: Code(s): R52 - Pain, unspecified Status: Acute Assessment and Plan: Patient denies adequate pain control Further med
[2021-11-25] MEDS: CHOLECALCIFEROL 1,000 UNITS TABLET 5000 UNITS PO (09:20)
[2021-11-25] MEDS: FLUTICASONE PROPIONATE 0.05% NA SPR 16 GM BTL (*BKC) 1 SPRAY NASAL (09:20)
[2021-11-25] MEDS: FUROSEMIDE 20 MG TABLET 60 MG PO (09:20)
[2021-11-25 09:21] VITALS: PULSE 63
[2021-11-25] MEDS: FERROUS SULFATE 324 MG TABLET PO (09:21)
[2021-11-25] MEDS: SPIRONOLACTONE 50 MG TABLET 100 MG PO (09:21)
[2021-11-25] MEDS: CELECOXIB 200 MG CAPSULE PO (09:21)
[2021-11-25] MEDS: PROPRANOLOL HCL 10 MG TABLET PO (09:21)
[2021-11-25] MEDS: PANTOPRAZOLE 40 MG TABLET PO (09:22)
[2021-11-25] MEDS: TAMSULOSIN HCL 0.4 MG CAPSULE PO (09:23)
[2021-11-25] MEDS: SACCHAROMYCES BOULARDII 250 MG CAPSULE PO (09:23)
[2021-11-25] MEDS: TOLNAFTATE 1% POWDER 45 GM BTL 1 APPLIC TOPICAL (09:26)
[2021-11-25 09:27] VITALS: BP 128/55
[2021-11-25 11:35] LABS: Glucose Point of Care 134 mg/dl (65-105)
== END 2021-11-25 12:50 | DRG 481 ==
LOC: ANHED 15:15 → ANH2MED 15:43
PROVIDERS: Nurse Practitioner Adult Health; Orthopaedic Surgery; Physician Assistant; Admitting Provider Family Medicine; Emergency Provider Emergency Medicine; PCP Family Medicine; Visit Provider Nurse Practitioner
PROC: 0QS736Z Reposition Left Upper Femur with Intramedullary Internal Fixation Device, Percutaneous Approach (ICD-10-PCS; CPT 27245; principal; 2021-11-15 13:30)
DX: S72.142A Displaced intertrochanteric fracture of left femur, initial encounter for closed fracture (principal); N39.0 Urinary tract infection, site not specified; A04.72 Enterocolitis due to Clostridium difficile, not specified as recurrent; N17.9 Acute kidney failure, unspecified; K92.2 Gastrointestinal hemorrhage, unspecified; D62 Acute posthemorrhagic anemia; B96.4 Proteus (mirabilis) (morganii) as the cause of diseases classified elsewhere; W18.11XA Fall from or off toilet without subsequent striking against object, initial encounter; Y93.9 Activity, unspecified; Y92.9 Unspecified place or not applicable; Y99.9 Unspecified external cause status; K75.81 Nonalcoholic steatohepatitis (NASH); E11.9 Type 2 diabetes mellitus without complications; E03.9 Hypothyroidism, unspecified; I10 Essential (primary) hypertension; F41.9 Anxiety disorder, unspecified; K74.60 Unspecified cirrhosis of liver; Z79.4 Long term (current) use of insulin; Z88.0 Allergy status to penicillin; E83.42 Hypomagnesemia; B02.9 Zoster without complications; Z66 Do not resuscitate; D50.9 Iron deficiency anemia, unspecified
CPT/HCPCS: 36415; 36430; 49083; 70450; 71045; 72192; 73502; 80048; 80053; 81001; 82274; 82607; 82728; 82746; 82948; 83036; 83540; 83550; 83735; 84443; 84466; 85014; 85018; 85025; 85027; 85046; 85049; 85055; 85610; 85730; 86850; 86900; 86901; 86920; 87077; 87086; 87088; 87186; 87493; 93005; 96361; 96374; 96375; 97110; 97112; 97161; 97166; 97530; 97535; 99285; A9270; C1713; J0690; J0696; J1170; J1644; J2270; J2370; J2405; J2704; J3010; J3475; J7030; J7050; J7120; P9016; P9017